=== PATIENT | female | born 1945 | race Caucasian/White ===

== ENCOUNTER 2019-06-22 06:00 | Outpatient (CLI) | payer MEDICARE, MEDICAID, SELFPAY ==
--- NOTE | 2019-06-25 06:06 | ONC FU_ITS ---
Dr. Larios Patient Follow-Up Note Patient: Shahnaz Harper Unit #: [id number]: 1945 Dicatated By: Juan Luis Larios M.D.Date of Visit:Jun 22, 2019 Onc Med Follow-up/Prog Note Chief Complaint: Mantle cell lymphoma. History of Present Illness: This is a 74 year-old woman with mantle cell lymphoma. She had bulky retroperitoneal adenopathy at initial presentation in May 2009. She was treated with R- hyperCVAD chemotherapy with good clinical response. She completed 6 cycles of treatment as of September 2009. She did experience severe myelosuppression with the high dose methotrexate/high-dose Kalie-C portion of the treatment, and with the 6th cycle I did replace it with an additional cycle of cyclophosphamide/vincristine/Adriamycin. A PET/CT at that point did show a residual 3 cm mass at the celiac access as well as 4 residual cystic masses within the spleen, but these all showed just low-grade FDG uptake. She was then followed on observation/expectant management. During her followup she continued to have a mild thrombocytopenia, but there was no evidence of recurrence/progression of the lymphoma. She was found to have multiple thyroid nodules. She underwent right thyroid lobectomy in August of 2010. Pathology showed multinodular hyperplasia, but no evidence of malignancy. She had a pretty severe episode of pneumonia in September 2012, and she had evidence of some underlying COPD. Her other medical illnesses have been limited to hypertension and degenerative arthritis. She also has stage III chronic kidney disease. She had several polyps removed by colonoscopy in June 2012. She had a repeat EGD and colonoscopy in January 2019. The only significant finding apparently was gastritis. She had smoked in the past, but she quit in 2008. She is seen for a scheduled visit. She has been feeling good generally. Her energy is somewhat variable, but mostly pretty good. She says she is trying to walk. Her ECOG score is 1. She has good appetite. She has gained weight. She has not had fever. She had one episode of night sweating in association with bronchitis. Her breathing is pretty good during the daytime. It has improved with Spiriva. She also uses a pulmonary nebulizer as needed. She has on oxygen during the night. She has just occasional cough. She does not complain of chest pain. She has ongoing problems with acid reflux, but it is managed pretty well as long she takes her medication. She has abdominal pain intermittently, depending on what she eats. It is presumably due to diverticulitis. Her bowel and bladder function have been okay. She has some aching in the joints. She has just occasional headache. She occasionally has numbness in her hands. Medications: Charity 180 mg - Take 1 Tablet Oral daily, AmLODIPine Besylate 1 (10 mg) Tablet Oral daily, Benefiber 2 tsp Powder Oral every am, Cholecalciferol 1 (1000 Units) Capsule Oral every am, [employer] Fish Oil 1 (1000 mg) Capsule Oral daily, Glucosamine Chondr 1500 Complx 1 Capsule Oral daily, HydrALAZINE HCl 1 (25 mg) Tablet Oral b.i.d., Losartan Potassium 1 (50 mg) Tablet Oral b.i.d., Metoprolol Succinate ER 1 (25 mg) Tablet SR 24 HR Oral every am, Nitroglycerin Tablet, sublingual Sublingual PRN, oxygen 1 (2 L) Aerosol at bedtime, Protonix 1 (40 mg) Tablet, enteric coated Oral daily, Spiriva Respimat 1 (1.25 mcg/act) Aerosol, solution Inhalation daily, Synthroid 1 (75 mcg) Tablet Oral daily, Xopenex Nebulization solution Inhalation PRN, Zantac 2 (150 mg) Tablet Oral at bedtime, Zocor 1 (10 mg) Tablet Oral daily Allergies: PENICILLIN Review of Systems: Constitutional - Her energy is variable, but usually pretty good. She has limited activity. Appetite is good. She has gained weight. No fever or night sweats. ECOG score is 1, ENMT - She has occasional sinus congestion. No mouth sores. No sore throat or difficulty swallowing, Hematologic/Lymphatic - No abnormal bruising or bleeding, Respiratory - She has shortness of breath. She is on oxygen at night. She has just occasional cough. No pleuritic pain or hemoptysis, Cardiovascular - No angina pain. No palpitations, Gastrointestinal - No nausea or vomiting. She has acid reflux. She has diverticulitis, and she has abdominal pain, depending on what she eats. No diarrhea or constipation. No blood in the stool or black stools, Genitourinary (F) - No dysuria or hematuria. No urinary frequency. No urgency or incontinence, Musculoskeletal - She has aching in her joints, and she has some lower back pain, Integumentary - No skin complications, Neurologic - She has occasional headache. She does not complain of dizziness. She has occasional numbness/paresthesias in her hands, Psychiatric - No anxiety or depression. No insomnia. Vital Signs: Performed on Jun 22, 2019 14:15 Height - 64.00 in Weight - 201 lbs (HIGH) BSA - 1.96 sq.m BMI - 34.50 (HIGH) Temperature - 97.8 F (LOW) Pulse - 51 /min (LOW) Respiration - 19 /min BP - 151/81 mm(hg) (HIGH) O2 Sat - 97 % Pain - 0 Physical Examination: Constitutional - She looks pretty good generally, Eyes - Sclerae nonicteric. Conjunctivae clear, ENMT - No lesions noted in the oral cavity, Hematologic/Lymphatic - No cervical, clavicular, or axillary adenopathy, Respiratory - Lungs are clear with diminished air movement bilaterally, Cardiovascular - Heart rhythm is regular. There is no murmur, gallop, or rub noted, Abdomen - Mildly distended but soft. Liver and spleen are not enlarged. There is no abdominal mass or ascites noted and there is no inguinal adenopathy, Extremities - No edema. Posterior tibial pulses are palpable bilaterally, Neurologic - No focal neurologic deficits. Lab/Imaging: Test performed on Jun 15, 2019 09:08 Glucose 113 mg/dL BUN 14 mg/dL Creatinine 1.29 mg/dL Cr Clearance (Est) 55.89 mL/min Sodium 138 mmol/L Potassium 4.7 mmol/L Chloride 102 mmol/L CO2 26 mmol/L Calcium 9.1 mg/dL Protein, Total 6.0 g/dL Albumin 4.1 g/dL Bilirubin, Total 0.7 mg/dL Alkaline Phosphatase 86 IU/L AST (SGOT) 19 IU/L ALT (SGPT) 13 IU/L WBC 4.5 10^9/L RBC 4.37 10^12/L HGB 12.6 g/dL HCT 39.6 % MCV 90.6 fl MCH 28.8 pg MCHC 31.8 g/dL RDW 15.4 % Platelet Count 97 10^9/L MPV 10.6 fL Neutrophils (Gran) 2.89 10^9/L Lymphocytes 1.03 10^9/L Monocytes 0.47 10^9/L Eosinophils 0.07 10^9/L Basophils 0.01 10^9/L Manual Lymphocytes 23 % Manual Monocytes 11 % Manual Eosinophils 2 % Manual Basophils 0 % Impression: 1. Patient with mantle cell lymphoma with bulky retroperitoneal adenopathy and involvement in the spleen at initial diagnosis in May 2009. She appears to be in sustained remission following treatment with 6 cycles of F-madof-HDYM chemotherapy, which she completed in September 2009. 2. She has had a mild to moderately severe thrombocytopenia following completion of the chemotherapy. The cause/clinical significance is uncertain. Her other medical illnesses include: 3. Hypertension. 4. Stage III chronic kidney disease. 5. COPD. 6. Degenerative arthritis. 7. Multinodular goiter. During followup she has had some ongoing problems related to her underlying COPD, and she also has had GERD symptoms. Overall, though, she has been doing well clinically with no evidence of recurrence/progression of the lymphoma. Plan: She remains on observation/expectant management. I will see her again in 1 year. Signed By: Juan Luis Larios M.D. <<Signature on File>>
== END 2019-06-22 06:01 | disposition home or self-care (01) ==
LOC: ONCMED 10:32
PROVIDERS: Family Provider Nurse Practitioner Family; PCP Physician Assistant Medical; Visit Provider Internal Medicine Medical Oncology
DX: Z85.72 Personal history of non-Hodgkin lymphomas (principal); Z92.21 Personal history of antineoplastic chemotherapy; D69.59 Other secondary thrombocytopenia; T45.1X5S Adverse effect of antineoplastic and immunosuppressive drugs, sequela; I12.9 Hypertensive chronic kidney disease with stage 1 through stage 4 chronic kidney disease, or unspecified chronic kidney disease; N18.3 Chronic kidney disease, stage 3 (moderate); J44.9 Chronic obstructive pulmonary disease, unspecified; M19.90 Unspecified osteoarthritis, unspecified site; E04.2 Nontoxic multinodular goiter; Z87.891 Personal history of nicotine dependence
CPT/HCPCS: G0463

== ENCOUNTER 2020-07-18 13:08 | Outpatient (CLI) | payer MEDICARE, MEDICAID, SELFPAY ==
--- NOTE | 2020-07-18 19:09 | ONC FU_ITS ---
Dr. Larios Patient Follow-Up Note Patient: Shahnaz Harper Unit #: [id number]: 1945 Dicatated By: Juan Luis Larios M.D.Date of Visit:Jul 18, 2020 Onc Med Follow-up/Prog Note Chief Complaint: Mantle cell lymphoma. History of Present Illness: This is a 75 year-old woman with mantle cell lymphoma. She had bulky retroperitoneal adenopathy at initial presentation in May 2009. She was treated with R- hyperCVAD chemotherapy with good clinical response. She completed 6 cycles of treatment as of September 2009. She did experience severe myelosuppression with the high dose methotrexate/high-dose Kalie-C portion of the treatment, and with the 6th cycle I did replace it with an additional cycle of cyclophosphamide/vincristine/Adriamycin. A PET/CT at that point did show a residual 3 cm mass at the celiac access as well as 4 residual cystic masses within the spleen, but these all showed just low-grade FDG uptake. She was then followed on observation/expectant management. During her followup she continued to have a mild thrombocytopenia, but there was no evidence of recurrence/progression of the lymphoma. She was found to have multiple thyroid nodules. She underwent right thyroid lobectomy in August of 2010. Pathology showed multinodular hyperplasia, but no evidence of malignancy. She had a pretty severe episode of pneumonia in September 2012, and she had evidence of some underlying COPD. Her other medical illnesses include hypertension, chronic kidney disease, GERD, obstructive sleep apnea, and degenerative arthritis. She had several polyps removed by colonoscopy in June 2012. She had a repeat EGD and colonoscopy in January 2019. The only significant finding apparently was gastritis. She had smoked in the past, but she quit in 2008. She is seen for a scheduled visit. She has been under quite a bit of stress, as her came down with pneumonia in May that he is now continuing his recovery and a prison. She has been getting tired more easily, but she is still doing light work. ECOG score is 1. She has good appetite. She has gained weight. She does not have fever or night sweats. She has been having quite a bit of cough, and she has shortness of breath. She is on CPAP for obstructive sleep apnea. She does not complain of chest pain. She always has acid reflux. Her bowel function is adequately managed with MiraLAX. Bladder function has been okay. She has her usual old-age arthritis. She does not complain of headache or dizziness. She sometimes has numbness/tingling in her hands. Medications: Charity 180 mg - Take 1 Tablet Oral daily, AmLODIPine Besylate 1 (10 mg) Tablet Oral daily, Benefiber 2 tsp Powder Oral every am, Cholecalciferol 1 (1000 Units) Capsule Oral every am, [employer] Fish Oil 1 (1000 mg) Capsule Oral daily, Glucosamine Chondr 1500 Complx 1 Capsule Oral daily, HydrALAZINE HCl 1 (50 mg) Tablet Oral b.i.d., Losartan Potassium 1 (50 mg) Tablet Oral b.i.d., Metoprolol Succinate ER 1 (50 mg) Tablet SR 24 HR Oral every am, Nitroglycerin Tablet, sublingual Sublingual PRN, oxygen 1 (2 L) Aerosol at bedtime, Protonix 1 (40 mg) Tablet, enteric coated Oral daily, Spiriva Respimat 1 (1.25 mcg/act) Aerosol, solution Inhalation daily, Synthroid 1 (75 mcg) Tablet Oral daily, Xopenex Nebulization solution Inhalation PRN, Zantac 2 (150 mg) Tablet Oral at bedtime, Zocor 1 (10 mg) Tablet Oral daily Allergies: PENICILLIN Vital Signs: Performed on Jul 18, 2020 12:38 Height - 64.00 in Weight - 209 lbs (HIGH) BSA - 1.99 sq.m BMI - 35.88 (HIGH) Temperature - 98.0 F (LOW) Pulse - 90 /min Respiration - 20 /min BP - 130/62 mm(hg) O2 Sat - 93 % (LOW) Pain - 0 Physical Examination: Constitutional - She looks pretty good generally, Eyes - Sclerae nonicteric. Conjunctivae clear, ENMT - No lesions noted in the oral cavity, Hematologic/Lymphatic - No cervical, clavicular, or axillary adenopathy, Respiratory - Lungs are clear with diminished air movement bilaterally, Cardiovascular - Heart rhythm is regular. There is no murmur, gallop, or rub noted, Abdomen - Mildly distended. Liver and spleen are not enlarged. There is no abdominal mass or ascites noted and there is no inguinal adenopathy, Extremities - No edema, Neurologic - No focal neurologic deficits. Lab/Imaging: Test performed on Jul 14, 2020 09:30 T4, Free 1.80 ng/dL TSH 1.25 uU/mL LDH, Total 236 IU/L Phosphorous 3.7 mg/dL WBC 4.3 10^9/L RBC 3.85 10^12/L HGB 10.8 g/dL HCT 35.4 % MCV 91.9 fl MCH 28.1 pg MCHC 30.5 g/dL RDW 17.2 % Platelet Count 129 10^9/L MPV 11.2 fL Neutrophils (Gran) 2.40 10^9/L Lymphocytes 1.32 10^9/L Monocytes 0.41 10^9/L Eosinophils 0.10 10^9/L Basophils 0.01 10^9/L Manual Lymphocytes 31 % Manual Monocytes 10 % Manual Eosinophils 2 % Manual Basophils 0 % Problem List: 1. Mantle cell lymphoma with bulky retroperitoneal adenopathy and involvement in the spleen at initial diagnosis in May 2009. She has been in sustained remission following treatment with 6 cycles of Y-juaka-BZKO chemotherapy, which she completed in September 2009. 2. She has had a mild to moderately severe thrombocytopenia following completion of the chemotherapy. The cause/clinical significance is uncertain. 3. Hypertension. 4. Stage III chronic kidney disease. 5. GERD. 6. COPD. 7. Obstructive sleep apnea. 8. Degenerative arthritis. 9. Multinodular goiter. Problems Addressed with this Encounter and Plan: Patient with mantle cell lymphoma with bulky retroperitoneal adenopathy and involvement in the spleen at initial diagnosis in May 2009. She has been in sustained remission following treatment with 6 cycles of T-afqyg-MVBR chemotherapy, which she completed in September 2009. During follow-up she has had persistent thrombocytopenia of mild to moderately severe severity. A specific cause has not been determined, but it has been stable, and there has been no evidence of recurrence of the lymphoma. At this point she is having a little more fatigue. Some of that may be stress related, but she has now become mildly anemic. She otherwise appears stable, still with no evidence of recurrence of the lymphoma. As a precaution, I am going to check additional laboratory studies in 1 month, to include CBC, comprehensive metabolic profile, sed rate, reticulocyte count, LDH level, haptoglobin level, serum iron studies, and B12 level. She will have further evaluation as indicated. I will otherwise just plan to see her again in 1 year. Signed By: Juan Luis Larios M.D. <<Signature on File>>
== END 2020-07-18 13:09 | disposition home or self-care (01) ==
LOC: ONCMED 13:09
PROVIDERS: Family Provider Nurse Practitioner Family; PCP Physician Assistant Medical; Visit Provider Internal Medicine Medical Oncology
DX: Z85.72 Personal history of non-Hodgkin lymphomas (principal); D64.9 Anemia, unspecified; R53.83 Other fatigue; Z92.21 Personal history of antineoplastic chemotherapy
CPT/HCPCS: 99214

== ENCOUNTER 2021-02-21 10:37 | Outpatient (CLI) | payer MEDICARE, MEDICAID, SELFPAY ==
--- NOTE | 2021-02-21 11:35 | XR_ITS ---
WS: [id number] PA and lateral chest, 02/21/2021 Clinical Data: MALIGNANT PLEURAL EFFUSION Comparison: PA and lateral chest, 10/01/2012 Findings: There is a patchy opacity in the retrocardiac region which may represent atelectasis, pneum onia and effusion. Right lung is clear. The heart size is normal. No pneumothorax is seen. The pulmon emily vascularity is not remarkable. The aortic arch shows mild calcification. XR/XR chest 2V* [id number] Impression: 1. Patchy retrocardiac opacity which may represent atelectasis, effusion and pn eumonia. 2. Recommend follow-up film in 1-2 days.
== END 2021-02-21 10:38 | disposition home or self-care (01) ==
PROVIDERS: PCP Physician Assistant Medical; Visit Provider Internal Medicine Medical Oncology
DX: J91.0 Malignant pleural effusion (principal); J98.11 Atelectasis; J18.9 Pneumonia, unspecified organism
CPT/HCPCS: 36415; 71046

== ENCOUNTER 2021-03-05 08:55 | Outpatient (CLI) | payer MEDICARE, MEDICAID, SELFPAY ==
--- NOTE | 2021-03-06 07:25 | ONC CON_ITS ---
Dr. Larios New Patient Note Patient: Shahnaz Harper Unit #: [id number]: 1945 Dicatated By: Juan Luis Larios M.D.Date of Visit: Mar 05, 2021 Onc MED New Patient/Consult Referring Physician: Dr. Yanely Shabazz M.D. Chief Complaint: Mantle cell lymphoma/llung cancer. History of Present Illness: This is a 76 year-old woman with a history of mantle cell lymphoma. She has now been found to have metastatic neuroendocrine lung cancer. She has COPD. She had presented in January with left lower back pain and she was found on CT to have a left pleural effusion. She was then seen at the [facility] pulmonary clinic and she underwent thoracentesis on 01/29/2021. The pleural fluid cytology showed malignant cells which were positive for CK7, TTF-1, and MOC-31. They were negative for cyclin D1, CK20, Jorge Luis-EP4, calretinin, CD20, and CD3. On further analysis, there was positive staining for synaptophysin with negative p40 and Napsin, supporting a neuroendocrine carcinoma. Based on morphology, it large cell neuroendocrine carcinoma was favored. She then had further staging with PET/CT on 02/24/2021. That study showed an FDG avid solid lesion in the medial left lower lobe measuring 3.4 x 3.2 cm, SUV 12.4, strongly consistent with malignancy. Multiple FDG positive left hemithorax pleural plaques are also consistent with malignancy. Malignant nodes were present in the left hilum and prevascular territories. There was evidence of metastatic disease in the right and left hepatic lobes and there was malignant adenopathy in the retrocaval and peripancreatic regions. Also noted were multiple sites of osseous metastatic disease. She was referred to Dr. Santillan for consideration of chest tube placement in the left pleural cavity, but he recommended against it because the effusion appeared to be loculated. In the meantime, she had further evaluation with next generation sequencing study. 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 Multiple other mutations were noted, none of which were actionable. She is seen now for further management of the lung cancer. She complains that she is tired and hurting. She continues to have significant pain on her left side and left lower back. She does get some benefit with her pain medication, but she complains that it makes her sleepy. She does not have much activity, but she is still able to do housework. ECOG score is 1. Appetite is poor. She complains that nothing tastes good. She has not had fever. She occasionally has sweating at night. She has not had sore mouth or throat, and she has no difficulty swallowing. She continues to have shortness of breath, but not much cough. She does not complain of nausea. She always has acid reflux, but it is managed adequately with medication. She has been having constipation, but bowel function thus far has been adequate with MiraLAX. She has no complaints. She currently is not having any other joint or bone pain. She does not complain of headache. She occasionally has dizziness. She has some numbness in her fingers, but that is chronic. She has no other focal neurologic symptoms. She had bulky retroperitoneal adenopathy at the initial presentation of her lymphoma in May 2009. She was treated with R- hyperCVAD chemotherapy with good clinical response. She completed 6 cycles of treatment as of September 2009. She did experience severe myelosuppression with the high dose methotrexate/high-dose Kalie-C portion of the treatment, and with the 6th cycle I did replace it with an additional cycle of cyclophosphamide/vincristine/Adriamycin. A PET/CT at that point did show a residual 3 cm mass at the celiac access as well as 4 residual cystic masses within the spleen, but these all showed just low-grade FDG uptake. She was then followed on observation/expectant management. During her followup she continued to have a mild thrombocytopenia, but there was no evidence of recurrence/progression of the lymphoma. Her other medical illnesses include COPD, hypertension, chronic kidney disease, GERD, multinodular goiter, obstructive sleep apnea, and degenerative arthritis. She has a history of pulmonary embolism. She underwent right hemithyroidectomy in 2010. She had several polyps removed by colonoscopy in June 2012. She had a pretty severe episode of pneumonia in September 2012. She had a repeat EGD and colonoscopy in January 2019. The only significant finding apparently was gastritis. She had smoked in the past, but she quit in 2008. Medications: Charity 180 mg - Take 1 Tablet Oral daily, AmLODIPine Besylate 1 (10 mg) Tablet Oral daily, Benefiber 2 tsp Powder Oral every am, Cholecalciferol 1 (1000 Units) Capsule Oral every am, Famotidine 1 Tablet (of 40 mg) Oral daily, Glucosamine Chondr 1500 Complx 1 Capsule Oral daily, HydrALAZINE HCl 1 (50 mg) Tablet Oral b.i.d., Losartan Potassium 1 (50 mg) Tablet Oral b.i.d., Metoprolol Succinate ER 1 (50 mg) Tablet SR 24 HR Oral every am, Nitroglycerin Tablet, sublingual Sublingual PRN, oxygen 1 (2 L) Aerosol at bedtime, Polyethylene Glycol 1 Packet Powder daily, Protonix 1 (40 mg) Tablet, enteric coated Oral daily, Spiriva Respimat 1 (1.25 mcg/act) Aerosol, solution Inhalation daily, Synthroid 1 (75 mcg) Tablet Oral daily, Xopenex Nebulization solution Inhalation PRN, Zocor 1 (10 mg) Tablet Oral daily Allergies: PENICILLIN Social History: Ms. Harper is and she is retired. Ms. Harper no longer smokes. She drinks occasionally. She has indicated exposure to the following products: cigarettes. She has a history of smoking 1/2 pack of cigarettes daily for 40 years. She quit smoking in 2008. She has had only rare alcohol use. Family History: His sister of renal cell cancer at age 52. Her mother had diabetes and renal failure. She of stroke at age 72. Father with heart attack at age 80. Another sister and a brother also have diabetes. Review Of Symptoms: As above. Vital Signs: Performed on Mar 05, 2021 09:33: 8, 4, 34.90 (HIGH), 1.97 sq.m, 64.00 in, 94 % (LOW), 80 /min, 20 /min, 165/70 mm(hg) (HIGH), 97.9 F (LOW), and 203.3 lbs (LOW). Physical Examination: Constitutional - She appears somewhat weak generally, Eyes - Sclerae nonicteric. Conjunctivae clear, ENMT - No lesions noted in the oral cavity, Hematologic/Lymphatic - No cervical, clavicular, or axillary adenopathy, Respiratory - Lungs show diminished air movement bilaterally, worse on the left, Cardiovascular - Heart rhythm is regular. There is no murmur, gallop, or rub noted, Abdomen - Mildly distended. Liver and spleen are not enlarged. There is no abdominal mass or ascites noted and there is no inguinal adenopathy, Extremities - No edema, Neurologic - No focal neurologic deficits. Problem List: 1. Metastatic neuroendocrine lung cancer with PET/CT evidence of primary tumor in the medial left lower lobe, TNM stage IVB (T2a, N2, M1c). There is associated malignant pleural effusion and there are multiple sites of metastatic involvement by PET/CT, including multiple hepatic metastases and multiple sites of metastatic bone involvement. 2. She has a history of mantle cell lymphoma with bulky retroperitoneal adenopathy and involvement in the spleen at initial diagnosis in May 2009. She has been in sustained remission following treatment with 6 cycles of J-rmwye-DMUL chemotherapy, which she completed in September 2009. 3. She has had a mild to moderately severe thrombocytopenia following completion of the chemotherapy. 4. Hypertension. 5. Stage III chronic kidney disease. 6. GERD. 7. COPD. 8. Obstructive sleep apnea. 9. Degenerative arthritis. 10. Multinodular goiter. 11. History of pulmonary embolism. Problems Addressed with this Encounter and Plan: 1. The PET/CT findings and the pathology results reviewed with the patient. I also reviewed the results of the next generation sequencing by liquid biopsy. We discussed the clinic complications. She has metastatic neuroendocrine lung cancer, felt to be most likely large cell, that cannot be determined with certainty. PD-L1 assessment on the biopsy was not able to be performed due to inadequate specimen. Based on the information available, I am going to recommend trial of systemic therapy with carboplatin/etoposide chemotherapy in combination with immunotherapy (atezolizumab). I reviewed anticipated side effects with the chemotherapy which may include nausea/vomiting, alopecia, fatigue, and low blood counts, among others. I also reviewed potential side effects with the immunotherapy which may include endocrinopathies, enteritis, pneumonitis, skin eruption, and renal or hepatic toxicity, among others. She is agreeable to proceeding with treatment as recommended. She will need to undergo placement of Port-A-Cath venous access device, will be scheduled with Dr. Francisco. She will return for cycle 1 of chemotherapy soon as the Port-A-Cath is in place and we have verification of insurance coverage. 2. She has multiple sites of metastatic bone involvement by PET/CT, and she also will require supportive therapy with denosumab. Signed By: Juan Luis Larios M.D. <<Signature on File>>
== END 2021-03-05 08:56 | disposition home or self-care (01) ==
LOC: ONCMED 08:58
PROVIDERS: PCP Physician Assistant Medical; Visit Provider Internal Medicine Medical Oncology
DX: C7B.8 Other secondary neuroendocrine tumors (principal); C79.51 Secondary malignant neoplasm of bone; Z85.72 Personal history of non-Hodgkin lymphomas; J44.9 Chronic obstructive pulmonary disease, unspecified; I12.9 Hypertensive chronic kidney disease with stage 1 through stage 4 chronic kidney disease, or unspecified chronic kidney disease; N18.9 Chronic kidney disease, unspecified; K21.9 Gastro-esophageal reflux disease without esophagitis; Z87.891 Personal history of nicotine dependence; Z79.899 Other long term (current) drug therapy; Z80.9 Family history of malignant neoplasm, unspecified
CPT/HCPCS: 99215

== ENCOUNTER → 2021-03-07 13:57 | Outpatient (BNVA) | payer MEDICARE, MEDICAID, SELFPAY | PROVIDERS: PCP Physician Assistant Medical; Visit Provider Surgery | DX: Z20.822 Contact with and (suspected) exposure to COVID-19 (principal); Z11.52 Encounter for screening for COVID-19 | CPT/HCPCS: 87635 ==

== ENCOUNTER 2021-03-14 06:55 | Day surgery (SDC) | payer MEDICARE, MEDICAID, SELFPAY ==
[2021-03-13 16:23] VITALS: BMI 34.7
--- NOTE | 2021-03-14 | SCC_ITS ---
Procedure Done: 1. Placement of PowerPort in the right internal jugular vein 69.5 seconds of fluoroscopic guidance, for a cumulative dose of 16.60 mGy, was provided to Dr. Francisco by the radiology department. C-arm images of the chest were saved for the patient's permanent record. [facility]
--- NOTE | 2021-03-14 07:07 | W.PM.OPSUD ---
Surgery/Procedure H&P Update DATE OF PROCEDURE: March 14, 2021 DATE H&P PERFORMED: 03/06/21 H&P UPDATE INFORMATION: I have reviewed H&P completed within last 30 days, I have examined patient prior to procedure and No changes to prior documentation PREOP DIAGNOSIS: lung ca PLANNED PROCEDURE: Operation Date: 03/14/21 08:10 Proposed Procedures p Portacath Placement [id number] D3A.8(Not Applicable) - Beau Francisco MD
[2021-03-14 07:13] VITALS: BP 142/68; PULSE 76; RESP 18; TEMP 36.3; O2SAT 94
[2021-03-14] MEDS: sodium chloride 0.9% 1,000 ML 30 ML IV (07:51)
--- NOTE | 2021-03-14 07:54 | SC_ITS ---
WS: [id number] C-arm fluoroscopy for Port-A-Cath insertion, 03/14/2021 Clinical Data: portacatheter Comparison: None. Findings: The right internal jugular venous catheter is in good position. SC/C-arm FL for CVA [id number] Impression: Insertion of right internal jugular venous catheter.
--- NOTE | 2021-03-14 07:59 | ANES.PREANE2 ---
Pre-Anesthetic Assessment Pre-Anesthetic Assessment: Height/Weight: Height 1.63 m Weight 91.626 kg Temp Pulse Resp BP Pulse Ox 97.4 F L 76 18 142/68 94 03/14/21 07:13 03/14/21 07:13 03/14/21 07:13 03/14/21 07:13 03/14/21 07:13 Preop Diagnosis: lung ca Proposed Procedure: Operation Date: 03/14/21 08:10 Proposed Procedures p Portacath Placement [id number] D3A.8(Not Applicable) - Beau Francisco MD Was Beta Maye taken within 24 hours: Yes Was Clonidine taken within 24 hours: N/A Last intake: Intake Last Liquid Date 03/13/21 Last Liquid Time 22:00 Last Solid Date 03/13/21 Last Solid Time 17:30 Social: Social History: No tobacco Exam: Pre-Anes Outpt Exam: alert, oriented x 3 and regular rate & rhythm Additional Exam Findings (including area of procedure): Mild expiratory wheeze. Airway: Submandibular: WNL Cervical ROM: WNL MP: 2 Dentition: Chipped Pulmonary: Pulmonary: COPD, Cough and Sleep apnea Comments: Lung CA. Supplemental O2 @ 2 Lpm during the day. CPAP at night. CV/HEM: CV/HEM: HTN Metabolic: Metabolic: Morbid obesity and Thyroid Comments: BMI 34 Anesthetic Plan: ASA status: 3 Anesthesia: Anesthesia Evaluation, General and MAC Risk of > 500 ml blood loss (7ml/kg in children): No Meds/Allergies Current Medications: Current Medications Generic Name Dose Route Start Last Admin Trade Name Freq PRN Reason Stop Dose Admin Sodium Chloride 1,000 mls @ 30 ml s/hr 03/14/21 07:15 03/14/21 07:51 Sodium Chloride 0.9% IV 03/15/21 07:14 30 mls/hr .Q24H FISH Administration PFSH Anesthesia PFSH: Medical History (Updated 03/06/21 @ 09:01 by Beau Francisco MD) GERD (gastroesophageal reflux disease) Hypertension Hypothyroidism 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
--- NOTE | 2021-03-14 07:59 | ANES.PREANE2 ---
Pre-Anesthetic Assessment Pre-Anesthetic Assessment: Height/Weight: Height 1.63 m Weight 91.626 kg Temp Pulse Resp BP Pulse Ox 97.4 F L 76 18 142/68 94 03/14/21 07:13 03/14/21 07:13 03/14/21 07:13 03/14/21 07:13 03/14/21 07:13 Preop Diagnosis: lung ca Proposed Procedure: Operation Date: 03/14/21 08:10 Proposed Procedures p Portacath Placement [id number] D3A.8(Not Applicable) - Beau Francisco MD Familial anesthetic complications: none Was Beta Maye taken within 24 hours: Yes Was Clonidine taken within 24 hours: N/A Last intake: Intake Last Liquid Date 03/13/21 Last Liquid Time 22:00 Last Solid Date 03/13/21 Last Solid Time 17:30 Social: Social History: No alcohol and No tobacco Exam: Pre-Anes Outpt Exam: alert, oriented x 3, clear to auscultation bilaterally and regular rate & rhythm Additional Exam Findings (including area of procedure): coarse breath sounds b/l Airway: Cervical ROM: WNL MP: 2 Dentition: Other (misisng teeth) Pulmonary: Pulmonary: COPD (2 l NC) CV/HEM: CV/HEM: HTN GI: GI: GERD Metabolic: Metabolic: Hyperlipidemia and Thyroid Anesthetic Plan: ASA status: 4 Anesthesia: MAC Risk of > 500 ml blood loss (7ml/kg in children): No Meds/Allergies Current Medications: Current Medications Generic Name Dose Route Start Last Admin Trade Name Freq PRN Reason Stop Dose Admin Sodium Chloride 1,000 mls @ 30 ml s/hr 03/14/21 07:15 03/14/21 07:51 Sodium Chloride 0.9% IV 03/15/21 07:14 30 mls/hr .Q24H FISH Administration PFSH Anesthesia PFSH: Medical History (Updated 03/06/21 @ 09:01 by Beau Francisco MD) GERD (gastroesophageal reflux disease) Hypertension Hypothyroidism 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
[2021-03-14] MEDS: vancomycin 1,000 MG in sodium chloride 0.9% 250 ML 250 MG IV (08:15)
[2021-03-14] MEDS: lidocaine 1% INJ 20 mL SUBCUT (08:50)
--- NOTE | 2021-03-14 09:12 | XR_ITS ---
WS: [id number] Portable AP upright chest, 03/14/2021 Clinical Data: STATUS POST PORTACATHETER (IN PACU) Comparison: PA and lateral chest, 02/21/2021. Findings: The right internal jugular venous placement of Port-A-Cath is good. No pneumothorax is note d. The heart remains enlarged. There is patchy opacity in the left lower lobe which may represent ate lectasis, effusion and or pneumonia. Right lung is clear. The pulmonary vascularity is not increased. . XR/XR chest 1V portable [id number] Impression: 1. Satisfactory placement of right internal jugular venous Port-A-Cath. 2. No change in cardiomegaly. 3. No change in patchy opacity in left lower lobe.
[2021-03-14 09:32] VITALS: BP 128/62; PULSE 73; RESP 10; TEMP 36.3; O2SAT 97
[2021-03-14 09:40] VITALS: BP 131/65; PULSE 68; RESP 18; TEMP 36.6; O2SAT 97
[2021-03-14 09:45] VITALS: BP 129/77; PULSE 66; RESP 16; TEMP 36.6; O2SAT 95
--- NOTE | 2021-03-14 09:55 | PM.OP ---
Operative Report Date of procedure: March 14, 2021 Pre-op Diagnosis: Neuroendocrine tumor of the lung requiring central venous access for chemo Post-op diagnosis: same Procedure Done: 1. Placement of PowerPort in the right internal jugular vein 2. Fluoroscopic guidance and interpretation for placement of catheter 3. Ultrasound guidance to access the right internal jugular vein Surgeon: Beau Francisco Anesthesia: MAC Condition: stable Disposition: PACU Procedure: The patient was taken to the Operating Room and the chest and neck bilaterally were prepped and draped in a sterile manner after the antibiotic had been administered and shoulder rolls had been placed. 1% lidocaine with 0.5% Marcaine was infiltrated at the side at the site of the planned around the left subclavian vein. I was able to access the left subclavian vein but could not thread the guidewire. An ultrasound of the right internal jugular vein revealed patent flow, no thrombus. An introducer needle was then used to access the right internal jugular vein and after withdrawing blood syringe was removed and a guidewire passed under fluoroscopy into the superior vena cava. The site of the planned port was then marked on the chest and a 15 blade was used to make a 3 cm skin incision this was extended into the subcutaneous tissue using electrocautery and a subcutaneous pocket over the pectoralis fascia was created 2-0 Vicryl suture was used to suture the port to the pectoral fascia in the pocket on 3 sides. The catheter, after having been flushed with hep saline, was attached to the tunneler and a tunnel created between the port site and the internal jugular vein entry site. Under fluoroscopy the dilator sheath was passed over the guidewire into the proximal superior vena cava. The inner dilator was removed and the sheath left behind and the catheter was introduced through the peel-away sheath with the tip in the superior vena cava. The peel-away sheath was removed. The proximal end of the catheter was cut to the right size and was attached to the port. Using a Hawthorne needle the port was accessed, it withdrew blood easily and flushed easily. A final 5cc of heparin was used to flush the PowerPort. The subcutaneous tissue was approximated using interrupted 3-0 Vicryl sutures and the skin at the introducer site and the port site was closed using subcuticular running 4-0 Monocryl sutures. Surgical glue was applied and the patient was stable throughout the procedure. Fluoroscopic guidance and interpretation was performed for introduction of the guidewire in the right internal jugular vein, passage of dilator and placement of catheter tip in the distal superior vena cava
[2021-03-14 10:00] VITALS: BP 143/64; PULSE 67; RESP 16; TEMP 36.5; O2SAT 94
--- NOTE | 2021-03-14 15:43 | ANE.PACU2 ---
Inpatient post-anesthesia follow up: Airway intact: Yes Vital signs: Temperature 97.7 F Pulse Rate 67 Respiratory Rate 16 Blood Pressure 143/64 Pulse Oximetry 94 Oxygen Delivery Me thod Nasal Cannula Oxygen Flow Rate 2 Fraction of Inspir ed Oxygen Hydration adequate: Yes Nausea and vomiting: No Pain level: 2 Mental status: Baseline
== END 2021-03-14 10:39 | disposition home or self-care (01) ==
PROVIDERS: PCP Physician Assistant Medical; Visit Provider Surgery
PROC: (CPT 36571; principal; 2021-03-14 08:10)
DX: D3A.8 Other benign neuroendocrine tumors (principal); I10 Essential (primary) hypertension; E03.9 Hypothyroidism, unspecified; Z87.891 Personal history of nicotine dependence; Z88.0 Allergy status to penicillin
CPT/HCPCS: 36571; 71045; 77001; C1788; J2250; J2704; J3010; J3370; J3490; J7030; J7050

== ENCOUNTER 2021-03-19 10:22 | Outpatient (CLI) | payer MEDICARE, MEDICAID, SELFPAY ==
[2021-03-19 11:22] LABS: Basophils % 0.2 %; Hematocrit 32.1 % (37.0-47.0); Hemoglobin 10.1 g/dL (11.5-15.3); Lymphocytes # 1.1 10^3/uL (0.8-4.8); Lymphocytes % 12.7 %; Mean Corpuscular HGB Conc 31.5 g/dL (30.0-36.0); Mean Corpuscular Hemoglobin 28.5 pg (28.0-34.0); Mean Corpuscular Volume 90.4 fl (81-99); Mean Platelet Volume 11.9 fL (7.4-10.4); Monocytes % 11.3 %; Neutrophils # 6.55 10^3/uL (1.8-7.7); Neutrophils % 73.3 %; Nucleated Red Blood Cells % 0 %; Platelet Count 198 10^3/cmm (130-400); Red Blood Count 3.55 10^6/uL (4.1-5.3); Red Cell Distribution Width 15.6 % (12.1-15.1); White Blood Count 8.9 10^3/uL (4.0-10.0)
[2021-03-19] MEDS: sodium chloride 0.9% 250 ML 999 ML IV (11:28)
[2021-03-19] MEDS: levofloxacin-dextrose 5 % 500 MG/100 ML PREMIX 100 MG IV (11:28)
[2021-03-19 11:53] LABS: Alanine Aminotransferase 28 U/L (0-33); Albumin Level 3.3 g/dL (3.5-5.2); Alkaline Phosphatase 134 IU/L (35-105); Anion Gap 14.9 (5-19); Aspartate Amino Transferase 53 U/L (0-32); Blood Urea Nitrogen 22 mg/dL (8-23); Calcium 8.5 mg/dL (8.5-10.5); Carbon Dioxide 26 mmol/L (22-29); Chloride 101 mmol/L (98-107); Glucose 115 mg/dL (65-115); Osmolality Calculated 288 mOsm/kg (285-295); Potassium 4.9 mmol/L (3.5-5.1); Sodium 137 mmol/L (136-145); Thyroid Stimulating Hormone 0.63 uIU/mL (0.27-4.20); Total Bilirubin 0.5 mg/dL (0.15-1.2); Total Protein 6.3 g/dL (6.6-8.7)
== END 2021-03-19 10:23 | disposition home or self-care (01) ==
LOC: ONCMED 10:25
PROVIDERS: PCP Physician Assistant Medical; Visit Provider Internal Medicine Medical Oncology
DX: J91.0 Malignant pleural effusion (principal); F17.211 Nicotine dependence, cigarettes, in remission; D64.9 Anemia, unspecified; Z85.72 Personal history of non-Hodgkin lymphomas; E04.2 Nontoxic multinodular goiter; I10 Essential (primary) hypertension; M15.0 Primary generalized (osteo)arthritis
CPT/HCPCS: 80053; 84443; 85025; 96365; J1956; J7050

== ENCOUNTER 2021-03-19 12:39 | Inpatient (IN) | payer MEDICARE, MEDICAID, SELFPAY ==
[2021-03-19] VITALS (11 sets, daily range): BP systolic 110–146; BP diastolic 64–84; PULSE 68–109; RESP 18–28; TEMP 36.6–36.8; O2SAT 80–98; BMI 34.7; BMI 35.6
[2021-03-19 13:28] LABS: ABG PCO2 40.3 mmHg (35-45); ABG PH Result 7.44 (7.35-7.45); Arterial Blood Gas Hematocrit 31.7 % (37-47); Base Excess ABG 3.1 mmol/L (-2.0-2.0); Blood Gas Operator Identificat GD; Blood Gas Sample Site Brachial, right; Blood Gas Sample Type Arterial; HCO3 ABG 27.5 mmol/L (22-26); Oxygen Device NC; PO2 ABG 62.3 mmHg (80.0-100.0)
--- NOTE | 2021-03-19 13:41 | ECG_ITS ---
[facility] Test Date: 2021-03-19 Pat Name: Shahnaz Harper Department: Room: Gender: Female [place]: : 1945 Requested By: Philip Rojas Order Number: [id number] Ez MD: Olivia Calderon M.D. Measurements Intervals [place] Rate: 74 P: 50 NM: 143 QRS: 40 QRSD: 90 T: 54 QT: 390 QTc: 434 Interpretive Statements SINUS RHYTHM LOW QRS VOLTAGE IN PRECORDIAL LEADS [QRS DEFLECTION < 1.0 mV IN CHEST LEADS] No previous ECG available for comparison Electronically Signed On 03-20-2021 12:39:00 FISH AND WILDLIFE TECHNICIAN by Olivia Calderon M.D. [id number]
--- NOTE | 2021-03-19 13:48 | PC.NURSE ---
Cardiac monitoring initiated upon arrival into the room
--- NOTE | 2021-03-19 14:07 | W.ED.SOB ---
HPI - SOB/Dyspnea General: Chief Complaint: Shortness of Breath/Dyspnea Stated Complaint: Low o2 sent by Dr. Larios Time Seen by Provider: 03/19/21 13:40 History of Present Illness: HPI Narrative: 76-year-old female presents emergency room from oncology office. She is known history of lung cancer with metastasis diagnosed at stage IV. 10 years ago she had mantle cell lymphoma. Today she presents with increasing shortness of breath change in baseline cough is productive of green sputum. She normally is on 2 L by nasal cannula and is now escalated to 5 L by nasal cannula she denies any chest pain no fever. He has been vaccinated for Covid. MD elicited complaint: shortness of breath and cough Pertinent past history: other (lung CA) Onset (ago): day(s) Context: occurred during exertion Timing: constant Severity: moderate Exacerbating factors: exertion and coughing Relieving factors: oxygen and rest Known history of: COPD and other (lung CA) Associated symptoms: Deny abdominal pain, chest pain, fever(s), nausea, orthopnea or vomiting Treatment prior to arrival: oxygen Review of Systems Const: Denies: fever(s), chills, body aches, change in appetite, fatigue or malaise ENMT: Denies: throat pain, ear or mastoid pain, nasal discharge or nasal congestion Card: Denies: chest pain, edema, dyspnea on exertion or orthopnea Resp: Denies: dyspnea, productive cough or non-productive cough GI: Denies: abdominal pain, nausea, vomiting, hematemesis, coffee ground emesis, diarrhea, constipation, bloating, hematochezia or melena : Denies: flank pain, difficulty voiding, dysuria, urinary frequency or urinary urgency Skin/Breast: Denies: rash or pruritus PFSH ED PFSH: Medical History GERD (gastroesophageal reflux disease) Hypertension Hypothyroidism Mantle cell lymphoma Neuroendocrine neoplasm of lung Surgical History History of 1988 History of cholecystectomy unsure of date History of colonoscopy 2018 History of removal of Port-a-Cath 2016 History of thyroidectomy 2011 Port-A-Cath in place (03/14/21) Social History Quit status (tobacco): has quit using tobacco Former quit date comment: 12 years prior Alcohol intake: never Physical Exam Const: COMMON NORMALS: no acute distress GENERAL APPEARANCE: cooperative and comfortable ORIENTATION/CONSCIOUSNESS: Yes awake, Yes oriented to person, Yes oriented to place and Yes oriented to time HENMT: COMMON NORMALS: normocephalic, atraumatic and hearing grossly normal bilaterally HEAD & SCALP: normocephalic and atraumatic Neck/C-Spine: COMMON NORMALS: no JVD Resp: AUSCULTATION: rhonchi and wheezes Cardio: COMMON NORMALS: no JVD, regular rate, regular rhythm and No murmurs present (Cardio) RATE: regular rate RHYTHM: regular rhythm GI: COMMON NORMALS: Soft to palpation and No hepatosplenomegaly present AUSCULTATION: Yes normoactive bowel sounds PALPATION: Yes Soft to palpation, No Tenderness to palpation present (GI), No Guarding due to palpation present (GI) and Yes No hepatosplenomegaly present Extremity: COMMON NORMALS: normal to inspection, capillary refill normal, no clubbing, cyanosis or edema, no calf tenderness and no pedal edema Neuro: SENSORIUM/ORIENTATION: Yes oriented to person, Yes oriented to place and Yes oriented to time Skin: COMMON NORMALS: no rashes or lesions noted GENERAL SKIN EXAM: no rashes or lesions noted Course Vital Signs: Vital signs: Vital Signs Temperature 98.2 F 03/22/21 04:00 Pulse Rate 74 03/22/21 04:00 Respiratory Rate 16 03/22/21 04:00 Blood Pressure 134/60 03/22/21 04:00 Pulse Oximetry 90 03/22/21 04:00 MDM - SOB/Dyspnea MDM Narrative: Medical decision making narrative: Reviewed labs and imaging with patient patient has a post obstructive pneumonia. Started on antibiotics cussed with hospitalist orders written Lab Data: Labs: Lab Results 03/19/21 03/19/21 03/19/21 13:05 14:16 14:16 WBC 8.1 10^3/uL 10^3/ uL (4.0-10.0) RBC 3.84 10^6/uL L 10 ^6/uL (4.1-5.3) Hgb 10.3 g/dL L g/dL (11.5-15.3) Hct 34.0 % L % (37.0-47.0) MCV 88.5 fl fl (81-99) MCH 26.8 pg L pg (28.0-34.0) MCHC 30.3 g/dL g/dL (30.0-36.0) RDW 15.7 % H % (12.1-15.1) Plt Count 191 10^3/cmm 10^3 /cmm (130-400) MPV 11.1 fL H fL (7.4-10.4) Neut % (Auto) 70.6 % % Lymph % (Auto) 15.3 % % [place] % (Auto) 10.9 % % Eos % (Auto) 0.0 % % Baso % (Auto) 0.2 % % Neut # (Auto) 5.72 10^3/uL 10^3 /uL (1.8-7.7) Lymph # (Auto) 1.2 10^3/uL 10^3/ uL (0.8-4.8) [place] # (Auto) 0.9 10^3/uL 10^3/ uL (0.2-0.9) Eos # (Auto) 0.0 10^3/uL 10^3/ uL (0.0-0.8) Baso # (Auto) 0.0 10^3/uL 10^3/ uL (0.0-0.1) Nucleated RBC % (a uto) 0 % % Nucleated RBCs # 0.0 /100WBC /100W BC Specimen Type Arterial Sample Site Brachial, right ABG pH 7.44 (7.35-7.45) ABG pCO2 40.3 mmHg mmHg (35-45) ABG pO2 62.3 mmHg L mmHg (80.0-100.0) ABG HCO3 27.5 mmol/L H mmo l/L (22-26) ABG Base Excess 3.1 mmol/L H mmol /L (-2.0-2.0) Vel Test N/a Hematocrit 31.7 % L % (37-47) O2 Delivery Device Nc O2 Liters/Min 2.0 % % FiO2 28.0 % % Senior Online Marketing Manager ID Gd Sodium 136 mmol/L mmol/L (136-145) Potassium 5.0 mmol/L mmol/L (3.5-5.1) Chloride 100 mmol/L mmol/L (98-107) Carbon Dioxide 22 mmol/L mmol/L (22-29) Anion Gap 19.0 (5-19) BUN 23 mg/dL mg/dL (8-23) Creatinine 1.2 mg/dL H mg/dL (0.5-0.9) GFR Calculation Not Reportable Glucose 101 mg/dL mg/dL (65-115) Calculated Osmolal ity 286 mOsm/kg mOsm/ kg (285-295) Calcium 8.2 mg/dL L mg/dL (8.5-10.5) Total Bilirubin 0.4 mg/dL mg/dL (0.15-1.2) AST 54 U/L H U/L (0-32) ALT 27 U/L U/L (0-33) Alkaline Phosphata se 124 IU/L H IU/L (35-105) Total Protein 6.5 g/dL L g/dL (6.6-8.7) Albumin 3.3 g/dL L g/dL (3.5-5.2) Globulin 3.2 g/dL g/dL (1.3-4.6) Discharge Plan Discharge Patient Disposition: Admitted As Inpatient Admit Provider: Naveed Camarillo Clinical Impression: Pneumonia, Lung cancer metastatic to bone Condition: Stable Coding Level of Care Code ED Patient Support Representative for Mary Ann Ronquillo
[2021-03-19 14:26] LABS: Basophils % 0.2 %; Hemoglobin 10.3 g/dL (11.5-15.3); Lymphocytes # 1.2 10^3/uL (0.8-4.8); Lymphocytes % 15.3 %; Mean Corpuscular HGB Conc 30.3 g/dL (30.0-36.0); Mean Corpuscular Hemoglobin 26.8 pg (28.0-34.0); Mean Corpuscular Volume 88.5 fl (81-99); Mean Platelet Volume 11.1 fL (7.4-10.4); Monocytes # 0.9 10^3/uL (0.2-0.9); Monocytes % 10.9 %; Neutrophils # 5.72 10^3/uL (1.8-7.7); Neutrophils % 70.6 %; Nucleated Red Blood Cells % 0 %; Platelet Count 191 10^3/cmm (130-400); Red Blood Count 3.84 10^6/uL (4.1-5.3); Red Cell Distribution Width 15.7 % (12.1-15.1); White Blood Count 8.1 10^3/uL (4.0-10.0)
--- NOTE | 2021-03-19 14:36 | XR_ITS ---
WS: [id number] Exam: XR chest 1V portable [id number] Date/Time of Exam: 03/19/2021 2:36 PM Reason For Exam: dyspnea/cough Comparison 02/21/2021. Residual infiltrates are seen in the bilateral lower lobes. There is atelectasis and residual consoli dating infiltrate in the left lower lobe. The heart is enlarged. No pneumothorax is seen. Left basal pleural effusion is noted. A right IJ port is noted ending in the lower one third of the SVC. Regiona l bony elements are intact. XR/XR chest 1V portable [id number] IMPRESSION: 1. Residual infiltrates in the mid and lower lung zones with consolidation in t he left lower lobe and atelectasis. Small left pleural effusion. 2. Cardiac enlargement. 3. Right-sided IJ port in satisfactory location.
[2021-03-19 14:49] LABS: Alanine Aminotransferase 27 U/L (0-33); Albumin Level 3.3 g/dL (3.5-5.2); Alkaline Phosphatase 124 IU/L (35-105); Aspartate Amino Transferase 54 U/L (0-32); Blood Urea Nitrogen 23 mg/dL (8-23); Calcium 8.2 mg/dL (8.5-10.5); Carbon Dioxide 22 mmol/L (22-29); Chloride 100 mmol/L (98-107); Globulin 3.2 g/dL (1.3-4.6); Glucose 101 mg/dL (65-115); Osmolality Calculated 286 mOsm/kg (285-295); Sodium 136 mmol/L (136-145); Total Bilirubin 0.4 mg/dL (0.15-1.2); Total Protein 6.5 g/dL (6.6-8.7)
--- NOTE | 2021-03-19 17:07 | CTR_ITS ---
PROCEDURE INFORMATION: Exam: CTA Chest With Contrast Exam date and time: 03/19/2021 5:07 PM Age: 76 years old Clinical indication: Cough and shortness of breath; Prior surgery; Surgery type: Gb, thyroid, port; Additional info: Lung ca/hypoxia/suspectd covid TECHNIQUE: Imaging protocol: Computed tomographic angiography of the chest with contrast. 3D rendering (Not supervised by radiologist): MIP and/or 3D reconstructed images were created by the technologist. Radiation optimization: All CT scans at this facility use at least one of these dose optimization techniques: automated exposure control; mA and/or kV adjustment per patient size (includes targeted exams where dose is matched to clinical indication); or iterative reconstruction. Contrast material: VISI 320; Contrast volume: 71 ml; Contrast route: INTRAVENOUS (IV); COMPARISON: CR XR chest 1V portable [id number] 03/19/2021 2:46 PM RADIATION DOSE METRICS: Total DLP (mGy-cm): 568.11 FINDINGS: Pulmonary arteries: Normal. No pulmonary emboli. Aorta: Unremarkable. No aortic aneurysm. No aortic dissection. Lungs: Patchy bilateral airspace opacities, greatest in the left lower lobe suggestive of an infectious process, underlying malignancy is not excluded given provided history of lung cancer. Mild bilateral bronchiectasis. Emphysematous changes. Pleural spaces: Small left pleural effusion. Heart: Unremarkable. No cardiomegaly. No pericardial effusion. Lymph nodes: Unremarkable. No enlarged lymph nodes. Spleen: Spleen enlarged to 16 cm. Splenic cyst. Bones/joints: Unremarkable. No acute fracture. Soft tissues: Unremarkable. CT/CT angio chest PE protcl [id number] IMPRESSION: 1. Negative for pulmonary embolus. 2. Patchy bilateral airspace opacities, greatest in the left lower lobe suggestive of an infectious process, underlying malignancy is not excluded given provided history of lung cancer. 3. Mild bilateral bronchiectasis. 4. Spleen enlarged to 16 cm. 5. Splenic cyst. 6. Small left pleural effusion. 7. Emphysematous changes. Radiation Dose CTDIVOL = (mGy): DLP = 568.11 (mGy-cm)
[2021-03-19] MEDS: iodixanol 320 mg/mL 100mL Btl IV (17:50)
--- NOTE | 2021-03-19 18:44 | ECG_ITS ---
[facility] Test Date: 2021-03-19 Pat Name: Shahnaz Harper Department: Room: 273 Gender: Female Verifier: : 1945 Requested By: Naveed Camarillo Order Number: [id number] Ez MD: Cayla Pratt M.D. Measurements Intervals [place] Rate: 69 P: 53 [place]: 185 QRS: 12 QRSD: 73 T: 38 QT: 401 QTc: 432 Interpretive Statements SINUS RHYTHM LOW QRS VOLTAGE IN PRECORDIAL LEADS [QRS DEFLECTION < 1.0 mV IN CHEST LEADS] SEPTAL MYOCARDIAL INFARCTION , OF INDETERMINATE AGE [40+ ms Q WAVE IN V1/V2] Compared to ECG 03/19/2021 22:13:45 No significant changes Electronically Signed On 03-20-2021 21:49:06 SHOWROOM SALESPERSON by Cayla Pratt M.D. [id number]
--- NOTE | 2021-03-19 18:45 | P.HP_ITS ---
Providers/Chief Complaint Primary Care Provider: Dvae Nowak Chief Complaint: Low o2 sent by Dr. Larios History of Present Illness Shahnaz Harper is a 76 year old female with a past medical history of mantle cell lymphoma, COPD on 2 L, history of metastatic neuroendocrine lung cancer with PET CT evidence of primary tumor in the medial left lower lobe, with malignant pleural effusion, multiple sites of metastatic involvement including metastatic hepatic disease, multiple sites of metastatic bone involvement, hypertension, CKD stage III, GERD, SANDHYA, multinodular goiter, history of pulmonary embolism, who presents to [facility] for shortness of breath. Patient tells me that recently she has been experiencing increased shortness of breath, no orthopnea, no paroxysmal nocturnal dyspnea, has some lower extremity edema, also has complaints of pleuritic-like pain with coughing, cough, low-grade fevers, no nausea, no vomiting, no sore throat, no known sick contacts, she is received her Covid vaccines, both back in May, has received Covid vaccines, no known sick contacts, she recently had a port placement by Dr. Francisco with plans of chemotherapy for her neuroendocrine tumor as above. Review of Systems Const: Reports: fever(s), body aches, fatigue and malaise; Denies: chills Eyes: Denies: change in vision or blurry vision ENMT: Reports: nasal congestion Card: Denies: chest pain Resp: Reports: dyspnea and non-productive cough; Denies: productive cough or wheezing GI: Denies: abdominal pain, nausea, vomiting, hematemesis, diarrhea, constipation, hematochezia or melena : Denies: flank pain, dysuria or urinary frequency Musc: Denies: neck pain or back pain Skin/Breast: Denies: rash Neuro: Denies: headache(s), dizziness or vertigo Psych: Denies: anxiety or depression Endo: Denies: polyuria or polydipsia Medications/Allergies Home Medications Medication Instructions Recorded Confirmed Last Taken Type albuterol sulfate 90 mcg/actuation 2 puff INHALATION Q6H PRN 03/01/21 03/19/21 03/12/21 History aerosol inhaler amlodipine 10 mg tablet 10 mg PO QAM 03/01/21 03/19/21 03/19/21 07:25 History azelastine 137 mcg (0.1 %) nasal 2 spray INTRANASAL BID 03/01/21 03/19/21 03/19/21 07:25 History spray aerosol cholecalciferol (vitamin D3) 25 25 mcg PO QAM 03/01/21 03/19/21 03/13/21 History mcg (1,000 unit) capsule famotidine 40 mg tablet 40 mg PO BEDTIME 03/01/21 03/19/21 03/18/21 History cwboknpnzhy-xtc-dmmnyegcb-vitC 1 cap PO QAM 03/01/21 03/19/21 03/19/21 History capsule hydralazine 50 mg tablet 50 mg PO BID tab 03/01/21 03/19/21 03/19/21 07:25 History levothyroxine 75 mcg tablet 75 mcg PO QAM 03/01/21 03/19/21 03/19/21 History losartan 50 mg tablet 50 mg PO BID 03/01/21 03/19/21 03/19/21 07:25 History metoprolol succinate 100 mg 100 mg PO QAM 03/01/21 03/19/21 03/19/21 07:25 History tablet,extended release 24 hr nitroglycerin 0.4 mg sublingual 0.4 mg SUBLINGUAL Q5M PRN 03/01/21 03/19/21 Unknown History tablet pantoprazole 40 mg tablet,delayed 40 mg PO QAM 03/01/21 03/19/21 03/19/21 History release simvastatin 10 mg tablet 10 mg PO BEDTIME 03/01/21 03/19/21 03/18/21 History wheat dextrin [Benefiber Clear SF 2 tsp PO QAM 03/01/21 03/19/21 03/15/21 History (dextrin)] polyethylene glycol 3350 17 17 g PO DAILY PRN 03/06/21 03/19/21 03/12/21 History gram/dose oral powder Stiolto Respimat 2 puff INHALATION QAM 03/13/21 03/19/21 03/19/21 History fexofenadine 180 mg PO QAM 03/13/21 03/19/21 03/19/21 History levofloxacin 500 mg PO DAILY 03/19/21 03/19/21 Unknown History oxycodone-acetaminophen 1 - 2 tab PO Q6H PRN 03/19/21 03/19/21 03/19/21 11:00 History Allergies Allergy/AdvReac Type Severity Reaction Status Date / Time Penicillins Allergy ALGY-Hives Verified 03/19/21 15:22 DYES Allergy Unknown Uncoded 03/19/21 15:22 PFSH Acute PFSH: Medical History GERD (gastroesophageal reflux disease) Hypertension Hypothyroidism Mantle cell lymphoma Neuroendocrine neoplasm of lung Surgical History History of 1988 History of cholecystectomy unsure of date History of colonoscopy 2017 History of removal of Port-a-Cath 2015 History of thyroidectomy 2011 Port-A-Cath in place (03/14/21) Social History Quit status (tobacco): has quit using tobacco Former quit date comment: 12 years prior Alcohol intake: never Vitals/I&O/Wt Last Vital Signs Temp 97.8 F 03/19/21 12:52 Pulse 73 03/19/21 15:42 Resp 20 H 03/19/21 15:54 BP 125/65 03/19/21 15:42 Pulse Ox 95 03/19/21 15:42 Weight last 48 hrs Weight 91.626 kg Physical Exam Const: COMMON NORMALS: no acute distress and patient oriented x3 GENERAL APPEARANCE: cooperative and comfortable HENMT: COMMON NORMALS: normocephalic HEAD & SCALP: normocephalic Eye: COMMON NORMALS: Equal, round and reactive pupils present and EOMs intact bilaterally GENERAL EYE: appearance normal, both eyes and all related structures PUPIL: Yes Equal, round and reactive pupils present Neck/C-Spine: COMMON NORMALS: full ROM and no lymphadenopathy THYROID: Thyroid normal Lymph: LYMPHATIC: no lymphadenopathy noted Resp: COMMON NORMALS: normal respiratory effort, No retractions, No use of accessory muscles and clear to auscultation bilaterally AUSCULTATION: wheezes Cardio: COMMON NORMALS: regular rate, regular rhythm, S1 normal heart sound present, S2 normal heart sound present, No gallops present (Cardio), No clicks present (Cardio) and No murmurs present (Cardio) RATE: regular rate RHYTHM: regular rhythm HEART SOUNDS: S1 normal heart sound present and S2 normal heart sound present GI: COMMON NORMALS: Normal to inspection, nondistended, normoactive bowel sounds present, Soft to palpation, non-tender and No hepatosplenomegaly present PALPATION: Yes Soft to palpation and Yes No hepatosplenomegaly present Extremity: COMMON NORMALS: normal to inspection, full ROM and no pedal edema Neuro: COMMON NORMALS: patient oriented x3, CN's II-XII intact bilaterally, moves all extremities and no focal motor deficits Psych: COMMON NORMALS: mental status grossly normal, Normal thought process present and cooperative THOUGHT PROCESS: Normal thought process present Data : 03/19/21 14:16 03/19/21 14:16 Micro: Microbiology 03/19/21 15:39 Blood Culture - Preliminary Blood SPECIMEN COLLECTED 03/19/21 15:39 Blood Culture - Preliminary Blood SPECIMEN COLLECTED A&P Assessment and plan (1) Acute and chronic respiratory failure: -History of COPD, 2 L, history of chronic respiratory failure -Immunocompromise state with malignancy -CT angiogram of the chest no pulmonary embolism, patchy bilateral airspace opacities greater in the left lower lobe, emphysematous changes, small left pleural effusion Plan: -Rapid Covid, Covid PCR, influenza -Continue vancomycin, cefepime and azithromycin -No wheezing, will hold off on steroids for now -Monitor respiratory status closely -Continue DuoNeb, budesonide -Oxygen therapy -Follow blood cultures, sputum cultures, urine bacterial antigens -BNP, troponin series ordered -Lovenox for DVT prophylaxis -Patient is DNR/DNI Hypothyroidism : Continue levothyroxine Hypertension, continue home medications Status: Acute (2) Pneumonia: Status: Acute (3) Lung cancer metastatic to bone: Status: Acute (4) Neuroendocrine neoplasm of lung: Status: Acute (5) Chronic respiratory failure with hypoxia: Status: Acute (6) COPD (chronic obstructive pulmonary disease): Status: Acute Attestations Medical Necessity Statement*: Patient requires hospitalization, for acute on chronic respiratory failure with hypoxia secondary to pneumonia Coding Level of Care Code Acute Home Energy Consultant for [facility] Diagnoses Acute and chronic respiratory failure J96.20 Pneumonia J18.9 Lung cancer metastatic to bone C34.90; C79.51 Neuroendocrine neoplasm of lung D3A.8 Chronic respiratory failure with hypoxia J96.11 COPD (chronic obstructive pulmonary disease) J44.9
[2021-03-19] MEDS: morphine 4 mg/mL SDV 1 mL 2 MG IVP (19:18)
[2021-03-19 19:19] LABS: Partial Thromboplastin Time 26.2 SECONDS (23.9-36.7)
[2021-03-19] MEDS: cefepime 2,000 MG in sodium chloride 0.9% (plus) 50 ML 100 MG IV (19:21)
[2021-03-19 19:29] LABS: Lactic Sepsis W/Reflex 1.1 mmol/L (0.5-2.2); Troponin(5th) Baseline 17 ng/L (0-10)
[2021-03-19 19:36] LABS: NT Pro B Type Natriuretic Pept 752 pg/mL (0-125); Procalcitonin 28.13 ng/mL (0-0.5); Thyroid Stimulating Hormone 0.91 uIU/mL (0.27-4.20)
--- NOTE | 2021-03-19 20:44 | ECG_ITS ---
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 Measurements Intervals [place] Rate: 70 P: 54 MN: 176 QRS: 15 QRSD: 72 T: 41 QT: 383 QTc: 415 Interpretive Statements SINUS RHYTHM LOW QRS VOLTAGE IN PRECORDIAL LEADS [QRS DEFLECTION < 1.0 mV IN CHEST LEADS] SEPTAL MYOCARDIAL INFARCTION , OF INDETERMINATE AGE [40+ ms Q WAVE IN V1/V2] Compared to ECG 03/19/2021 14:05:04 Myocardial infarct finding now present Electronically Signed On 03-20-2021 22:00:33 FUR FINISHER TAILOR by Cayla Pratt M.D. [id number]
[2021-03-19 20:59] LABS: Influenza A by IFA Negative (Negative); Influenza B by IFA Negative (Negative); SARS Covid-2 Antigen Negative (Negative)
[2021-03-19 21:38] LABS: Troponin 5 2HR 17.91 ng/L (0-10); Troponin 5 2HR Delta 0.91 ABS# (0-10)
[2021-03-19] MEDS: atorvastatin 40 mg Tablet 20 MG PO (21:41)
[2021-03-19] MEDS: vancomycin 1,250 MG/250 ML PIGGYBACK 250 MG IV (21:42)
[2021-03-19] MEDS: famotidine 20 mg Tablet 40 MG PO (21:42)
[2021-03-19] MEDS: enoxaparin 40 mg/0.4 mL Syringe SUBCUT (21:42)
[2021-03-19] MEDS: budesonide 0.5 mg/2 mL Neb INHALATION (22:22)
[2021-03-20] VITALS (13 sets, daily range): BP systolic 115–142; BP diastolic 57–80; PULSE 66–77; RESP 16–20; TEMP 36.6–36.8; O2SAT 91–99
--- NOTE | 2021-03-20 00:44 | ECG_ITS ---
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 Measurements Intervals [place] Rate: 67 P: 74 IN: 167 QRS: 39 QRSD: 81 T: 55 QT: 403 QTc: 425 Interpretive Statements SINUS RHYTHM LOW QRS VOLTAGE IN PRECORDIAL LEADS [QRS DEFLECTION < 1.0 mV IN CHEST LEADS] SEPTAL MYOCARDIAL INFARCTION , OF INDETERMINATE AGE [40+ ms Q WAVE IN V1/V2] Compared to ECG 03/19/2021 22:14:29 No significant changes Electronically Signed On 03-20-2021 22:03:53 CLEANER AND PRESSER by Cayla Pratt M.D. [id number]
[2021-03-20 02:28] LABS: Basophils % 0.3 %; Eosinophils % 0.2 %; Hematocrit 29.1 % (37.0-47.0); Hemoglobin 9.1 g/dL (11.5-15.3); Lymphocytes # 1.4 10^3/uL (0.8-4.8); Mean Corpuscular HGB Conc 31.3 g/dL (30.0-36.0); Mean Corpuscular Hemoglobin 28.2 pg (28.0-34.0); Mean Corpuscular Volume 90.1 fl (81-99); Mean Platelet Volume 12.1 fL (7.4-10.4); Monocytes # 0.7 10^3/uL (0.2-0.9); Neutrophils # 3.84 10^3/uL (1.8-7.7); Neutrophils % 62.3 %; Nucleated Red Blood Cells % 0 %; Platelet Count 146 10^3/cmm (130-400); Red Blood Count 3.23 10^6/uL (4.1-5.3); Red Cell Distribution Width 15.5 % (12.1-15.1); White Blood Count 6.2 10^3/uL (4.0-10.0)
[2021-03-20 03:00] LABS: Troponin 5 6HR 17.62 ng/L (0-10); Troponin 5 6HR Delta 0.62 ng/L (0-12)
[2021-03-20 03:17] LABS: Alanine Aminotransferase 24 U/L (0-33); Anion Gap 17.9 (5-19); Carbon Dioxide 22 mmol/L (22-29); Chloride 100 mmol/L (98-107); Globulin 2.4 g/dL (1.3-4.6); Glucose 89 mg/dL (65-115); Magnesium 2.3 mg/dL (1.7-2.3); Osmolality Calculated 285 mOsm/kg (285-295); Potassium 4.9 mmol/L (3.5-5.1); Total Bilirubin 0.3 mg/dL (0.15-1.2)
[2021-03-20 04:13] LABS: Aspartate Amino Transferase 47 U/L (0-32); Blood Urea Nitrogen 27 mg/dL (8-23); Calcium 7.9 mg/dL (8.5-10.5); Sodium 135 mmol/L (136-145)
[2021-03-20 04:14] LABS: Alkaline Phosphatase 111 IU/L (35-105); C Reactive Protein 105.1 mg/L (0.0-4.9); NT Pro B Type Natriuretic Pept 595 pg/mL (0-125); Procalcitonin 26.05 ng/mL (0-0.5); Total Protein 5.4 g/dL (6.6-8.7)
[2021-03-20] MEDS: pantoprazole DR 40 mg Tablet PO (06:00)
[2021-03-20] MEDS: oxyCODONE-APAP 5-325 mg Tablet PO (06:00)
[2021-03-20] MEDS: amlodipine 10 mg Tablet PO (06:00)
[2021-03-20] MEDS: metoprolol succinate ER (24 HR) 100 mg Tablet PO (06:00)
[2021-03-20] MEDS: cholecalciferol (vitamin D3) 1,000 unit Tablet 1000 UNIT PO (06:00)
[2021-03-20] MEDS: levothyroxine 75 mcg Tablet PO (06:00)
[2021-03-20] MEDS: cefepime 2,000 MG in sodium chloride 0.9% (plus) 50 ML 100 MG IV ×2 (06:12→16:33)
[2021-03-20] MEDS: hyDRALAzine 50 mg Tablet PO ×2 (08:51→17:13)
[2021-03-20] MEDS: ipratropium-albuterol 3 mL Neb INHALATION ×3 (09:32→20:56)
[2021-03-20] MEDS: budesonide 0.5 mg/2 mL Neb INHALATION ×2 (09:32→20:56)
[2021-03-20] MEDS: phosphorus 250 mg Tablet PO ×2 (10:30→17:13)
--- NOTE | 2021-03-20 12:13 | CTR_ITS ---
PROCEDURE INFORMATION: Exam: CT Lumbar Spine Without Contrast Exam date and time: 03/20/2021 12:13 PM Age: 76 years old Clinical indication: Low back pain; Additional info: Lumbar pain TECHNIQUE: Imaging protocol: Computed tomography images of the lumbar spine without contrast. Sagittal, oblique axial, and coronal reformatted images were created and reviewed. Radiation optimization: All CT scans at this facility use at least one of these dose optimization techniques: automated exposure control; mA and/or kV adjustment per patient size (includes targeted exams where dose is matched to clinical indication); or iterative reconstruction. COMPARISON: No relevant prior studies available. RADIATION DOSE METRICS: Total DLP (mGy-cm): 2196.3 FINDINGS: Vertebrae: Vertebral body height is maintained. No subluxation. Normal bone mineralization. No acute fracture. Mild levoscoliosis in the visualized spine. Discs/Spinal canal/Neural foramina: Multilevel degenerative changes of varying severity in the visualized spine. Mild spinal canal stenosis at L2-L3 and L5-S1. Moderate spinal canal stenosis at L3-L4 and L4-L5. Multilevel foraminal stenosis of varying severity in the visualized spine. Epidural space: No evidence for an epidural hematoma. Lungs: Left pleural effusion with left lower lobe atelectasis and/or pneumonia is partially visualized. Vasculature: Extensive atherosclerotic changes in the visualized arteries. Large focal calcified plaque in the upper abdominal aorta with up to 80% stenosis (series 3, images 15-26). Soft tissues: No paravertebral soft tissue abnormality. No radiopaque foreign body. Partially visualized low-density focus in the spleen measuring at least 1.9 x 1.8 cm (series 3, image 10). Hounsfield units are greater than expected for simple fluid. CT/CT lumbar spine wo con* 12172 IMPRESSION: 1. No acute fracture of the lumbar spine. CT scan would be recommended if there is continuing clinical concern for fracture. 2. Multilevel degenerative changes of varying severity in the visualized spine. Mild spinal canal stenosis at L2-L3 and L5-S1. Moderate spinal canal stenosis at L3-L4 and L4-L5. Multilevel foraminal stenosis of varying severity in the visualized spine. 3. Left pleural effusion with left lower lobe atelectasis and/or pneumonia is partially visualized. Recommend clinical correlation. Recommend followup chest imaging to insure resolution of these findings. 4. Extensive atherosclerotic changes in the visualized arteries. Large focal calcified plaque in the upper abdominal aorta with up to 80% stenosis (series 3, images 15-26). 5. Partially visualized low-density focus in the spleen. Hounsfield units are greater than expected for simple fluid. For patients without history of cancer, recommend follow-up MRI in 6-12 months. With history of cancer, recommend evaluation with non-emergent PET vs. MRI vs. biopsy. 6. Incidental/nonacute findings are listed in the report. Radiation Dose CTDIVOL = (mGy): DLP = 2196.3 (mGy-cm)
[2021-03-20 16:15] LABS: Coronavirus Test Green County Detected
[2021-03-20] MEDS: azithromycin 500 MG in sodium chloride 0.9% 250 ML 250 MG IV (17:12)
--- NOTE | 2021-03-20 19:06 | P.PN_ITS ---
Subjective Subjective: Interval history: This morning patient was seen, she is currently on 4 L, she is still feels a bit weak, fatigued, tired, short of breath, her Covid is still pending Vitals/I&O/Wt Last Vital Signs Temp 98.1 F 03/20/21 15:32 Pulse 72 03/20/21 16:14 Resp 20 H 03/20/21 16:14 BP 115/60 03/20/21 15:32 Pulse Ox 93 03/20/21 16:14 03/20/21 03/20/21 03/20/21 06:59 14:59 22:59 Intake Total 420 / 470 360 / 360 300 / 660 Output Total 360 / 360 200 / 200 Balance 60 / 110 360 / 360 100 / 460 Weight last 48 hrs Weight 94.347 kg Weight 91.626 kg Physical Exam Const: COMMON NORMALS: no acute distress and patient oriented x3 Resp: COMMON NORMALS: normal respiratory effort, No retractions and No use of accessory muscles AUSCULTATION: crackles and wheezes Cardio: COMMON NORMALS: regular rate, regular rhythm, S1 normal heart sound present and S2 normal heart sound present RATE: regular rate RHYTHM: regular rhythm HEART SOUNDS: S1 normal heart sound present and S2 normal heart sound present GI: COMMON NORMALS: Normal to inspection, nondistended, normoactive bowel sounds present, Soft to palpation and non-tender PALPATION: Yes Soft to palpation Extremity: COMMON NORMALS: no pedal edema Neuro: COMMON NORMALS: patient oriented x3 Psych: COMMON NORMALS: mental status grossly normal Data : 03/20/21 01:46 03/20/21 01:46 Micro: Microbiology 03/19/21 15:39 Blood Culture - Preliminary Blood NEGATIVE TO DATE 03/19/21 15:39 Blood Culture - Preliminary Blood NEGATIVE TO DATE A&P Assessment and plan (1) Acute and chronic respiratory failure: -Secondary to COVID-19 pneumonia and possible secondary bacterial pneumonia -History of COPD, 2 L, history of chronic respiratory failure -Immunocompromise state with malignancy -CT angiogram of the chest no pulmonary embolism, patchy bilateral airspace opacities greater in the left lower lobe, emphysematous changes, small left pleural effusion -Positive Covid PCR Plan: -Continue vancomycin, cefepime and azithromycin -Decadron day 1 of 10 -Remdesivir day 1 of 10 -Monitor respiratory status closely -Continue DuoNeb, budesonide -Oxygen therapy -Follow blood cultures, sputum cultures, urine bacterial antigens -BNP elevated, will give 1 dose of Lasix -Lovenox for DVT prophylaxis -Patient is DNR/DNI Hypothyroidism : Continue levothyroxine Hypertension, continue home medications Status: Acute (2) Pneumonia: Status: Acute (3) Lung cancer metastatic to bone: Status: Acute (4) Neuroendocrine neoplasm of lung: Status: Acute (5) Chronic respiratory failure with hypoxia: Status: Acute (6) COPD (chronic obstructive pulmonary disease): Status: Acute (7) Pneumonia due to COVID-19 virus: Status: Acute Attestations Medical Necessity Statement*: Patient requires hospitalization due to acute respiratory failure secondary to COVID-19 pneumonia, secondary bacterial pneumonia Coding Level of Care Code Acute [employer]iconductor Testing Group Leader for [facility] Diagnoses Acute and chronic respiratory failure J96.20 Pneumonia J18.9 Lung cancer metastatic to bone C34.90; C79.51 Neuroendocrine neoplasm of lung D3A.8 Chronic respiratory failure with hypoxia J96.11 COPD (chronic obstructive pulmonary disease) J44.9 Pneumonia due to COVID-19 virus U07.1; J12.82
[2021-03-20] MEDS: dexamethasone 10 mg/mL INJ 6 MG IVP (20:10)
[2021-03-20] MEDS: FUROsemide 10 mg/mL SDV 4mL 40 MG IVP (20:10)
[2021-03-20] MEDS: remdesivir 200 MG in sodium chloride 0.9% (100 ml) 60 ML 100 MG IV (20:30)
[2021-03-20] MEDS: famotidine 20 mg Tablet 40 MG PO (21:23)
[2021-03-20] MEDS: enoxaparin 40 mg/0.4 mL Syringe SUBCUT (21:24)
[2021-03-20] MEDS: atorvastatin 40 mg Tablet 20 MG PO (21:24)
[2021-03-20] MEDS: vancomycin 1,250 MG/250 ML PIGGYBACK 250 MG IV (22:00)
[2021-03-21] VITALS (17 sets, daily range): BP systolic 108–145; BP diastolic 53–72; PULSE 69–93; RESP 16–24; TEMP 36.6–37.5; O2SAT 94–99
[2021-03-21] MEDS: ipratropium-albuterol 3 mL Neb INHALATION ×4 (03:28→20:07)
[2021-03-21] MEDS: cefepime 2,000 MG in sodium chloride 0.9% (plus) 50 ML 100 MG IV ×2 (04:09→16:56)
[2021-03-21 05:35] LABS: Basophils % 0.2 %; Hematocrit 31.9 % (37.0-47.0); Hemoglobin 9.5 g/dL (11.5-15.3); Lymphocytes # 0.8 10^3/uL (0.8-4.8); Lymphocytes % 13.5 %; Mean Corpuscular HGB Conc 29.8 g/dL (30.0-36.0); Mean Corpuscular Hemoglobin 26.8 pg (28.0-34.0); Mean Corpuscular Volume 89.9 fl (81-99); Mean Platelet Volume 11.9 fL (7.4-10.4); Monocytes # 0.2 10^3/uL (0.2-0.9); Monocytes % 3.6 %; Neutrophils # 4.74 10^3/uL (1.8-7.7); Neutrophils % 77.9 %; Nucleated Red Blood Cells % 0 %; Platelet Count 156 10^3/cmm (130-400); Red Blood Count 3.55 10^6/uL (4.1-5.3); Red Cell Distribution Width 15.4 % (12.1-15.1); White Blood Count 6.1 10^3/uL (4.0-10.0)
[2021-03-21 06:02] LABS: Procalcitonin 31.77 ng/mL (0-0.5)
[2021-03-21 06:10] LABS: Alanine Aminotransferase 26 U/L (0-33); Albumin Level 3.1 g/dL (3.5-5.2); Alkaline Phosphatase 122 IU/L (35-105); Aspartate Amino Transferase 45 U/L (0-32); Blood Urea Nitrogen 26 mg/dL (8-23); C Reactive Protein 64.4 mg/L (0.0-4.9); Carbon Dioxide 24 mmol/L (22-29); Chloride 101 mmol/L (98-107); Globulin 2.8 g/dL (1.3-4.6); Glucose 159 mg/dL (65-115); Magnesium 2.2 mg/dL (1.7-2.3); NT Pro B Type Natriuretic Pept 795 pg/mL (0-125); Osmolality Calculated 292 mOsm/kg (285-295); Phosphorus 2.7 mg/dL (2.5-4.5); Sodium 137 mmol/L (136-145); Total Bilirubin 0.4 mg/dL (0.15-1.2); Total Protein 5.9 g/dL (6.6-8.7)
[2021-03-21] MEDS: levothyroxine 75 mcg Tablet PO (06:14)
[2021-03-21] MEDS: metoprolol succinate ER (24 HR) 100 mg Tablet PO (06:14)
[2021-03-21] MEDS: cholecalciferol (vitamin D3) 1,000 unit Tablet 1000 UNIT PO (06:14)
[2021-03-21] MEDS: pantoprazole DR 40 mg Tablet PO (06:14)
[2021-03-21] MEDS: amlodipine 10 mg Tablet PO (06:14)
[2021-03-21 06:22] LABS: Creatine Phosphokinase 76 U/L (26-192)
[2021-03-21 06:33] LABS: D Dimer 5.14 ug/mIFEU (0-0.59)
[2021-03-21] MEDS: budesonide 0.5 mg/2 mL Neb INHALATION ×2 (09:44→20:06)
[2021-03-21] MEDS: phosphorus 250 mg Tablet PO ×2 (10:59→19:07)
[2021-03-21] MEDS: hyDRALAzine 50 mg Tablet PO ×2 (10:59→19:07)
[2021-03-21] MEDS: zinc gluconate 50 mg Tablet PO (10:59)
[2021-03-21] MEDS: ascorbic acid 500 mg Tablet PO ×2 (10:59→19:07)
--- NOTE | 2021-03-21 13:29 | P.PN_ITS ---
Subjective Subjective: Interval history: Patient was seen this morning, she is requiring 4 L, she is shocked that she is Covid positive, continues to have fatigue, malaise Vitals/I&O/Wt Last Vital Signs Temp 98.2 F 03/21/21 11:58 Pulse 81 03/21/21 11:58 Resp 17 03/21/21 11:58 BP 124/63 03/21/21 11:58 Pulse Ox 96 03/21/21 11:58 03/20/21 03/21/21 03/21/21 22:59 06:59 14:59 Intake Total 500 / 860 360 / 1220 360 / 360 Output Total 800 / 800 Balance -300 / 60 360 / 420 360 / 360 Weight last 48 hrs Weight 94.347 kg Physical Exam Const: COMMON NORMALS: no acute distress and patient oriented x3 Resp: COMMON NORMALS: normal respiratory effort, No retractions and No use of accessory muscles AUSCULTATION: wheezes Cardio: COMMON NORMALS: regular rate, regular rhythm, S1 normal heart sound present and S2 normal heart sound present RATE: regular rate RHYTHM: regular rhythm HEART SOUNDS: S1 normal heart sound present and S2 normal heart sound present GI: COMMON NORMALS: Normal to inspection, nondistended, normoactive bowel sounds present, Soft to palpation and non-tender PALPATION: Yes Soft to palpation Extremity: COMMON NORMALS: no pedal edema Neuro: COMMON NORMALS: patient oriented x3 Psych: COMMON NORMALS: mental status grossly normal Data : 03/21/21 05:06 03/21/21 05:06 Micro: Microbiology 03/19/21 15:39 Blood Culture - Preliminary Blood NEGATIVE TO DATE 03/19/21 15:39 Blood Culture - Preliminary Blood NEGATIVE TO DATE A&P Assessment and plan (1) Acute and chronic respiratory failure: -Secondary to COVID-19 pneumonia and possible secondary bacterial pneumonia -History of COPD, 2 L, history of chronic respiratory failure -Immunocompromise state with malignancy -CT angiogram of the chest no pulmonary embolism, patchy bilateral airspace opacities greater in the left lower lobe, emphysematous changes, small left pleural effusion -Positive Covid PCR Plan: -Continue vancomycin, cefepime and azithromycin -Decadron day 2 of 10 -Remdesivir day 2 of 10 -Monitor respiratory status closely -Continue DuoNeb, budesonide -Oxygen therapy -Follow blood cultures, sputum cultures, urine bacterial antigens -BNP elevated, creatinine 1.2, hold Lasix for today -Lovenox for DVT prophylaxis -Patient is DNR/DNI Hypothyroidism : Continue levothyroxine Hypertension, continue home medications Status: Acute (2) Pneumonia: Status: Acute (3) Lung cancer metastatic to bone: Status: Acute (4) Neuroendocrine neoplasm of lung: Status: Acute (5) Chronic respiratory failure with hypoxia: Status: Acute (6) COPD (chronic obstructive pulmonary disease): Status: Acute (7) Pneumonia due to COVID-19 virus: Status: Acute Attestations Medical Necessity Statement*: She requires hospitalization for acute respiratory failure, covid19 Coding Level of Care Code Acute Theology Teacher for [facility] Diagnoses Acute and chronic respiratory failure J96.20 Pneumonia J18.9 Lung cancer metastatic to bone C34.90; C79.51 Neuroendocrine neoplasm of lung D3A.8 Chronic respiratory failure with hypoxia J96.11 COPD (chronic obstructive pulmonary disease) J44.9 Pneumonia due to COVID-19 virus U07.1; J12.82
[2021-03-21] MEDS: remdesivir 100 MG in sodium chloride 0.9% (100 ml) 80 ML IV (19:02)
[2021-03-21] MEDS: enoxaparin 40 mg/0.4 mL Syringe SUBCUT (19:54)
[2021-03-21] MEDS: azithromycin 500 MG in sodium chloride 0.9% 250 ML 250 MG IV (19:54)
[2021-03-21] MEDS: dexamethasone 10 mg/mL INJ 6 MG IVP (19:54)
[2021-03-21] MEDS: oxyCODONE-APAP 5-325 mg Tablet PO (19:55)
[2021-03-21] MEDS: famotidine 20 mg Tablet 40 MG PO (20:38)
[2021-03-21] MEDS: atorvastatin 40 mg Tablet 20 MG PO (20:38)
[2021-03-21] MEDS: vancomycin 1,250 MG/250 ML PIGGYBACK 250 MG IV (21:46)
[2021-03-22] VITALS (16 sets, daily range): BP systolic 117–139; BP diastolic 59–71; PULSE 69–89; RESP 16–22; TEMP 36.6–37; O2SAT 90–97
[2021-03-22] MEDS: oxyCODONE-APAP 5-325 mg Tablet PO ×4 (02:39→20:53)
[2021-03-22] MEDS: cefepime 2,000 MG in sodium chloride 0.9% (plus) 50 ML 100 MG IV ×2 (04:08→15:10)
[2021-03-22] MEDS: levothyroxine 75 mcg Tablet PO (06:12)
[2021-03-22] MEDS: amlodipine 10 mg Tablet PO (06:12)
[2021-03-22] MEDS: metoprolol succinate ER (24 HR) 100 mg Tablet PO (06:12)
[2021-03-22] MEDS: pantoprazole DR 40 mg Tablet PO (06:12)
[2021-03-22] MEDS: cholecalciferol (vitamin D3) 1,000 unit Tablet 1000 UNIT PO (06:12)
[2021-03-22 06:20] LABS: Basophils % 0.4 %; Hematocrit 32.6 % (37.0-47.0); Lymphocytes # 1.4 10^3/uL (0.8-4.8); Lymphocytes % 13.5 %; Mean Corpuscular HGB Conc 30.7 g/dL (30.0-36.0); Mean Corpuscular Hemoglobin 27.2 pg (28.0-34.0); Mean Corpuscular Volume 88.6 fl (81-99); Monocytes # 0.5 10^3/uL (0.2-0.9); Monocytes % 4.6 %; Neutrophils % 75.6 %; Nucleated Red Blood Cells % 0 %; Platelet Count 174 10^3/cmm (130-400); Red Blood Count 3.68 10^6/uL (4.1-5.3); Red Cell Distribution Width 15.5 % (12.1-15.1); White Blood Count 10.7 10^3/uL (4.0-10.0)
[2021-03-22 06:44] LABS: D Dimer 8.99 ug/mIFEU (0-0.59)
[2021-03-22 06:49] LABS: Slide Review Slide Review Perform
[2021-03-22 07:01] LABS: NT Pro B Type Natriuretic Pept 839 pg/mL (0-125); Procalcitonin 38.26 ng/mL (0-0.5)
[2021-03-22 07:10] LABS: Alanine Aminotransferase 26 U/L (0-33); Albumin Level 3.4 g/dL (3.5-5.2); Alkaline Phosphatase 129 IU/L (35-105); Anion Gap 16.4 (5-19); Aspartate Amino Transferase 43 U/L (0-32); Blood Urea Nitrogen 37 mg/dL (8-23); C Reactive Protein 40.3 mg/L (0.0-4.9); Calcium 8.4 mg/dL (8.5-10.5); Carbon Dioxide 23 mmol/L (22-29); Chloride 104 mmol/L (98-107); Globulin 2.9 g/dL (1.3-4.6); Glucose 134 mg/dL (65-115); Magnesium 2.3 mg/dL (1.7-2.3); NT Pro B Type Natriuretic Pept 765 pg/mL (0-125); Osmolality Calculated 297 mOsm/kg (285-295); Phosphorus 3.4 mg/dL (2.5-4.5); Potassium 5.4 mmol/L (3.5-5.1); Sodium 138 mmol/L (136-145); Total Bilirubin 0.3 mg/dL (0.15-1.2); Total Protein 6.3 g/dL (6.6-8.7)
[2021-03-22 07:14] LABS: Creatine Phosphokinase 94 U/L (26-192)
[2021-03-22] MEDS: zinc gluconate 50 mg Tablet PO (08:15)
[2021-03-22] MEDS: phosphorus 250 mg Tablet PO ×2 (08:15→17:14)
[2021-03-22] MEDS: ascorbic acid 500 mg Tablet PO ×2 (08:15→17:14)
[2021-03-22] MEDS: hyDRALAzine 50 mg Tablet PO ×2 (08:15→17:14)
--- NOTE | 2021-03-22 09:12 | PC.SOCIAL ---
IMM updated, dated and initialed and copy given to patient, original put in chart
[2021-03-22] MEDS: budesonide 0.5 mg/2 mL Neb INHALATION ×2 (09:44→20:25)
[2021-03-22] MEDS: ipratropium-albuterol 3 mL Neb INHALATION ×4 (09:44→20:25)
[2021-03-22] MEDS: FUROsemide 10 mg/mL SDV 4mL 40 MG IVP (10:13)
--- NOTE | 2021-03-22 12:55 | P.PN_ITS ---
Subjective Subjective: Interval history: Patient was seen this morning, she tells me she has been urinating a lot because Lasix she got this morning, she is feeling better, on 4 L, no nausea, no vomiting, her appetite is improving Vitals/I&O/Wt Last Vital Signs Temp 97.9 F 03/22/21 11:43 Pulse 71 03/22/21 11:43 Resp 20 H 03/22/21 11:43 BP 117/70 03/22/21 11:43 Pulse Ox 95 03/22/21 11:43 03/21/21 03/22/21 03/22/21 22:59 06:59 14:59 Intake Total 980 / 1580 600 / 2180 480 / 480 Output Total 1060 / 1060 Balance 980 / 1580 -460 / 1120 480 / 480 Physical Exam Const: COMMON NORMALS: no acute distress and patient oriented x3 Resp: COMMON NORMALS: normal respiratory effort, No retractions, No use of accessory muscles and clear to auscultation bilaterally AUSCULTATION: clear to auscultation bilaterally Cardio: COMMON NORMALS: regular rate, regular rhythm, S1 normal heart sound present and S2 normal heart sound present RATE: regular rate RHYTHM: regu lar rhythm HEART SOUNDS: S1 normal heart sound present and S2 normal heart sound present GI: COMMON NORMALS: Normal to inspection, nondistended, normoactive bowel sounds present, Soft to palpation and non-tender PALPATION: Yes Soft to palpation Extremity: COMMON NORMALS: no pedal edema Neuro: COMMON NORMALS: patient oriented x3 Psych: COMMON NORMALS: mental status grossly normal Data : 03/22/21 05:41 03/22/21 05:41 A&P Assessment and plan (1) Acute and chronic respiratory failure: -History of COPD, 2 L, history of chronic respiratory failure -Immunocompromise state with malignancy -CT angiogram of the chest no pulmonary embolism, patchy bilateral airspace opacities greater in the left lower lobe, emphysematous changes, small left pleural effusion -COVID-19 pneumonia, COPD exacerbation, possible underlying secondary bacterial pneumonia Plan: -Continue vancomycin, cefepime and azithromycin -Decadron day 3 of 10 -Remdesivir day 3 of 10 -Monitor respiratory status closely -Continue DuoNeb, budesonide -Oxygen therapy -Follow blood cultures, sputum cultures, urine bacterial antigens -BNP elevated, creatinine 1.2, 1 dose of Lasix today -Lovenox for DVT prophylaxis -Patient is DNR/DNI Hypothyroidism : Continue levothyroxine Hypertension, continue home medications Status: Acute (2) Pneumonia: Status: Acute (3) Lung cancer metastatic to bone: Status: Acute (4) Neuroendocrine neoplasm of lung: Status: Acute (5) Chronic respiratory failure with hypoxia: Status: Acute (6) COPD (chronic obstructive pulmonary disease): Status: Acute (7) Pneumonia due to COVID-19 virus: Status: Acute (8) COPD exacerbation: Status: Acute Attestations Medical Necessity Statement*: Patient requires hospitalization for acute respiratory failure secondary COVID-19 pneumonia Coding Level of Care Code Acute Chief Nursing Executive for [facility] Diagnoses Acute and chronic respiratory failure J96.20 Pneumonia J18.9 Lung cancer metastatic to bone C34.90; C79.51 Neuroendocrine neoplasm of lung D3A.8 Chronic respiratory failure with hypoxia J96.11 COPD (chronic obstructive pulmonary disease) J44.9 Pneumonia due to COVID-19 virus U07.1; J12.82 COPD exacerbation J44.1
[2021-03-22] MEDS: remdesivir 100 MG in sodium chloride 0.9% (100 ml) 80 ML IV (17:15)
--- NOTE | 2021-03-22 19:00 | PC.NURSE ---
Report to Steff ROSE at this time.
[2021-03-22 19:57] LABS: Vancomycin Trough 15.7 ug/mL (10-15)
[2021-03-22] MEDS: enoxaparin 40 mg/0.4 mL Syringe SUBCUT (20:00)
[2021-03-22] MEDS: azithromycin 500 MG in sodium chloride 0.9% 250 ML 250 MG IV (20:00)
[2021-03-22] MEDS: dexamethasone 10 mg/mL INJ 6 MG IVP (20:00)
[2021-03-22] MEDS: atorvastatin 40 mg Tablet 20 MG PO (20:53)
[2021-03-22] MEDS: famotidine 20 mg Tablet 40 MG PO (20:53)
[2021-03-22] MEDS: vancomycin 1,250 MG/250 ML PIGGYBACK 250 MG IV (21:13)
[2021-03-23] VITALS (15 sets, daily range): BP systolic 122–133; BP diastolic 63–71; PULSE 70–76; RESP 16–22; TEMP 36.6–36.9; O2SAT 93–96
[2021-03-23] MEDS: ipratropium-albuterol 3 mL Neb INHALATION ×4 (02:02→20:46)
[2021-03-23] MEDS: cefepime 2,000 MG in sodium chloride 0.9% (plus) 50 ML 100 MG IV ×2 (04:40→16:55)
[2021-03-23] MEDS: oxyCODONE-APAP 5-325 mg Tablet PO ×3 (04:43→20:29)
[2021-03-23 05:58] LABS: Basophils % 0.2 %; Hematocrit 30.8 % (37.0-47.0); Hemoglobin 9.3 g/dL (11.5-15.3); Lymphocytes # 1.6 10^3/uL (0.8-4.8); Lymphocytes % 16.3 %; Mean Corpuscular HGB Conc 30.2 g/dL (30.0-36.0); Mean Corpuscular Volume 89.3 fl (81-99); Mean Platelet Volume 11.9 fL (7.4-10.4); Monocytes # 0.5 10^3/uL (0.2-0.9); Monocytes % 4.6 %; Neutrophils # 7.09 10^3/uL (1.8-7.7); Neutrophils % 71.6 %; Nucleated Red Blood Cells % 0 %; Platelet Count 159 10^3/cmm (130-400); Red Blood Count 3.45 10^6/uL (4.1-5.3); Red Cell Distribution Width 15.6 % (12.1-15.1); White Blood Count 9.9 10^3/uL (4.0-10.0)
[2021-03-23 06:16] LABS: D Dimer 8.81 ug/mIFEU (0-0.59)
[2021-03-23] MEDS: cholecalciferol (vitamin D3) 1,000 unit Tablet 1000 UNIT PO (06:21)
[2021-03-23] MEDS: levothyroxine 75 mcg Tablet PO (06:21)
[2021-03-23] MEDS: amlodipine 10 mg Tablet PO (06:21)
[2021-03-23] MEDS: pantoprazole DR 40 mg Tablet PO (06:21)
[2021-03-23] MEDS: metoprolol succinate ER (24 HR) 100 mg Tablet PO (06:21)
[2021-03-23 06:25] LABS: Alanine Aminotransferase 31 U/L (0-33); Albumin Level 3.1 g/dL (3.5-5.2); Alkaline Phosphatase 120 IU/L (35-105); Anion Gap 18.1 (5-19); Aspartate Amino Transferase 49 U/L (0-32); Blood Urea Nitrogen 37 mg/dL (8-23); C Reactive Protein 23.7 mg/L (0.0-4.9); Calcium 8.2 mg/dL (8.5-10.5); Carbon Dioxide 23 mmol/L (22-29); Chloride 101 mmol/L (98-107); Globulin 2.8 g/dL (1.3-4.6); Glucose 148 mg/dL (65-115); Osmolality Calculated 295 mOsm/kg (285-295); Phosphorus 3.5 mg/dL (2.5-4.5); Potassium 5.1 mmol/L (3.5-5.1); Sodium 137 mmol/L (136-145); Total Bilirubin 0.4 mg/dL (0.15-1.2); Total Protein 5.9 g/dL (6.6-8.7)
[2021-03-23 06:29] LABS: NT Pro B Type Natriuretic Pept 946 pg/mL (0-125); Procalcitonin 35.71 ng/mL (0-0.5)
[2021-03-23 06:40] LABS: Creatine Phosphokinase 75 U/L (26-192)
[2021-03-23 07:48] LABS: Slide Review Slide Review Perform
[2021-03-23] MEDS: phosphorus 250 mg Tablet PO ×2 (08:02→18:56)
[2021-03-23] MEDS: ascorbic acid 500 mg Tablet PO ×2 (08:02→18:56)
[2021-03-23] MEDS: zinc gluconate 50 mg Tablet PO (08:02)
[2021-03-23] MEDS: hyDRALAzine 50 mg Tablet PO ×2 (08:02→18:56)
[2021-03-23] MEDS: budesonide 0.5 mg/2 mL Neb INHALATION ×2 (08:23→20:46)
--- NOTE | 2021-03-23 13:19 | PM.PN ---
Subjective Subjective: Interval history: Patient was seen this morning, she tells me that she is having some chills this morning, no fevers, no nausea, no vomiting, no shortness of breath is on 3 L, she tells me she wants to go home with her daughter when she is ready for discharge Vitals/I&O/Wt Last Vital Signs Temp 98.5 F 03/23/21 12:07 Pulse 70 03/23/21 12:07 Resp 16 03/23/21 12:07 BP 124/70 03/23/21 12:07 Pulse Ox 94 03/23/21 12:07 03/22/21 03/23/21 03/23/21 22:59 06:59 14:59 Intake Total 870 / 1470 Output Total 1430 / 1430 Balance 870 / 1470 -1430 / 40 Physical Exam Const: COMMON NORMALS: no acute distress and patient oriented x3 Resp: COMMON NORMALS: normal respiratory effort, No retractions, No use of accessory muscles and clear to auscultation bilaterally AUSCULTATION: clear to auscultation bilaterally Cardio: COMMON NORMALS: regular rate, regular rhythm, S1 normal heart sound present and S2 normal heart sound present RATE: regular rate RHYTHM: regular rhythm HEART SOUNDS: S1 normal heart sound present and S2 normal heart sound present GI: COMMON NORMALS: Normal to inspection, nondistended, normoactive bowel sounds present, Soft to palpation and non-tender PALPATION: Yes Soft to palpation Extremity: COMMON NORMALS: no pedal edema Neuro: COMMON NORMALS: patient oriented x3 Psych: COMMON NORMALS: mental status grossly normal Data : 03/23/21 05:26 03/23/21 05:26 A&P Assessment and plan (1) Acute and chronic respiratory failure: -History of COPD, 2 L, history of chronic respiratory failure -Immunocompromise state with malignancy -CT angiogram of the chest no pulmonary embolism, patchy bilateral airspace opacities greater in the left lower lobe, emphysematous changes, small left pleural effusion -COVID-19 pneumonia, COPD exacerbation, possible underlying secondary bacterial pneumonia -WBC 9.9 -Afebrile -D-dimer 8.1 -Pro-Nash 35.71 -CRP 23.7 Plan: -Continue vancomycin, cefepime and azithromycin -Decadron day 4 of 10 -Remdesivir day 4 of 5 -Monitor respiratory status closely -Continue DuoNeb, budesonide -Oxygen therapy -Follow blood cultures, sputum cultures, urine bacterial antigens -BNP elevated, creatinine 1.2, 1 dose of Lasix today -Lovenox for DVT prophylaxis -Patient is DNR/DNI Hypothyroidism : Continue levothyroxine Hypertension, continue home medications Status: Acute (2) Pneumonia: Status: Acute (3) Lung cancer metastatic to bone: Status: Acute (4) Neuroendocrine neoplasm of lung: Status: Acute (5) Chronic respiratory failure with hypoxia: Status: Acute (6) COPD (chronic obstructive pulmonary disease): Status: Acute (7) Pneumonia due to COVID-19 virus: Status: Acute (8) COPD exacerbation: Status: Acute Attestations Medical Necessity Statement*: Patient requires hospitalization for acute respiratory failure sec to COPD, COVID-19 pneumonia Coding Level of Care Code Acute Failure Analysis Technician for [facility] Diagnoses Acute and chronic respiratory failure J96.20 Pneumonia J18.9 Lung cancer metastatic to bone C34.90; C79.51 Neuroendocrine neoplasm of lung D3A.8 Chronic respiratory failure with hypoxia J96.11 COPD (chronic obstructive pulmonary disease) J44.9 Pneumonia due to COVID-19 virus U07.1; J12.82 COPD exacerbation J44.1
--- NOTE | 2021-03-23 13:38 | PC.CHAP ---
Pastoral Care Encounter/Spiritual Assessment Type of Contact [] Declined motor vehicle assembly supervisor visit [] Patient/Family/Request visit [] Outpatient visit [xx] Follow-up visit [] Physician referral [] Code/Alert [] Routine visit [] Staff referral [] Actively dying [] Patient sleeping [] Family support [] [] Out of room [] Palliative care [] [] Receiving care in room [] Pre-surgical visit [] Trauma [xx] Long length of stay [] ICU visit [xx ] Other:ISOLATION Relational/Emotional Strength [] Patient feels connected with others/family/visitors/staff [] Distress [] Loneliness/isolation [] Abandonment Spirituality of Patient [] Person of [place] [] Attends Adventist of their [place] [] Believes in Prayer [] Reads Bible or Moravian materials [] There are Spiritual issues to be addressed Wire Saw Operator Interventions [] Prayer [] Active listening [] Non-anxious presence [] Spiritual/emotional support [] Crisis/trauma care [] Spiritual counseling [] Bereavement support [] Provided bereavement packet [] Provided Bible/devotional materials [] Provided toy/stuffed animal, coloring book to patient or family member [] Provided Communion [] Anointing/[place] [] Salvation [] Completed spiritual assessment [] Other: Impact on Illness or Injury [] Angry [] Fearful [] Anxious [] Often cries [] Exhaustion [] Unable to work [] Unable to attend yazidism [] Unable to walk/stand [] Unable to read [] Unable to drive [] Unable to eat/drink [] Unable to sleep [] Unable to be with family [] Patient intubated [] Other: Summary Time spent with patient
[2021-03-23] MEDS: remdesivir 100 MG in sodium chloride 0.9% (100 ml) 80 ML IV (18:55)
[2021-03-23] MEDS: azithromycin 500 MG in sodium chloride 0.9% 250 ML 250 MG IV (20:28)
[2021-03-23] MEDS: enoxaparin 40 mg/0.4 mL Syringe SUBCUT (20:28)
[2021-03-23] MEDS: atorvastatin 40 mg Tablet 20 MG PO (20:28)
[2021-03-23] MEDS: famotidine 20 mg Tablet 40 MG PO (20:29)
[2021-03-23] MEDS: dexamethasone 10 mg/mL INJ 6 MG IVP (20:33)
[2021-03-23] MEDS: vancomycin 1,250 MG/250 ML PIGGYBACK 250 MG IV (21:39)
[2021-03-24] VITALS (16 sets, daily range): BP systolic 116–155; BP diastolic 61–76; PULSE 70–82; RESP 16–20; TEMP 36.7–37.4; O2SAT 90–96
[2021-03-24] MEDS: ipratropium-albuterol 3 mL Neb INHALATION ×3 (02:30→20:38)
[2021-03-24] MEDS: cefepime 2,000 MG in sodium chloride 0.9% (plus) 50 ML 100 MG IV ×2 (03:44→15:56)
[2021-03-24 04:56] LABS: Basophils % 0.2 %; Eosinophils % 0.1 %; Hemoglobin 9.4 g/dL (11.5-15.3); Lymphocytes # 1.3 10^3/uL (0.8-4.8); Lymphocytes % 13.6 %; Mean Corpuscular HGB Conc 31.3 g/dL (30.0-36.0); Mean Corpuscular Hemoglobin 27.8 pg (28.0-34.0); Mean Corpuscular Volume 88.8 fl (81-99); Mean Platelet Volume 12.1 fL (7.4-10.4); Monocytes # 0.4 10^3/uL (0.2-0.9); Monocytes % 3.7 %; Neutrophils % 74.1 %; Nucleated Red Blood Cells % 0.2 %; Platelet Count 155 10^3/cmm (130-400); Red Blood Count 3.38 10^6/uL (4.1-5.3); Red Cell Distribution Width 15.7 % (12.1-15.1); White Blood Count 9.4 10^3/uL (4.0-10.0)
[2021-03-24] MEDS: oxyCODONE-APAP 5-325 mg Tablet PO ×3 (05:09→18:37)
[2021-03-24] MEDS: metoprolol succinate ER (24 HR) 100 mg Tablet PO (05:10)
[2021-03-24] MEDS: cholecalciferol (vitamin D3) 1,000 unit Tablet 1000 UNIT PO (05:10)
[2021-03-24] MEDS: levothyroxine 75 mcg Tablet PO (05:10)
[2021-03-24] MEDS: pantoprazole DR 40 mg Tablet PO (05:10)
[2021-03-24] MEDS: amlodipine 10 mg Tablet PO (05:10)
[2021-03-24 05:26] LABS: Slide Review Slide Review Perform
[2021-03-24 05:38] LABS: Alanine Aminotransferase 39 U/L (0-33); Alkaline Phosphatase 140 IU/L (35-105); Anion Gap 16.7 (5-19); Aspartate Amino Transferase 58 U/L (0-32); Blood Urea Nitrogen 35 mg/dL (8-23); C Reactive Protein 17.1 mg/L (0.0-4.9); Calcium 7.9 mg/dL (8.5-10.5); Carbon Dioxide 22 mmol/L (22-29); Chloride 103 mmol/L (98-107); Globulin 2.8 g/dL (1.3-4.6); Glucose 148 mg/dL (65-115); Magnesium 2.1 mg/dL (1.7-2.3); NT Pro B Type Natriuretic Pept 802 pg/mL (0-125); Osmolality Calculated 293 mOsm/kg (285-295); Phosphorus 2.9 mg/dL (2.5-4.5); Potassium 5.7 mmol/L (3.5-5.1); Sodium 136 mmol/L (136-145); Total Bilirubin 0.4 mg/dL (0.15-1.2); Total Protein 5.8 g/dL (6.6-8.7)
[2021-03-24] MEDS: hyDRALAzine 50 mg Tablet PO ×2 (09:00→18:01)
[2021-03-24] MEDS: phosphorus 250 mg Tablet PO ×2 (09:00→18:01)
[2021-03-24] MEDS: ascorbic acid 500 mg Tablet PO ×2 (09:00→18:01)
[2021-03-24] MEDS: acetaminophen 325 mg Tablet 650 MG PO (09:00)
[2021-03-24] MEDS: zinc gluconate 50 mg Tablet PO (09:01)
[2021-03-24 10:18] LABS: Glucose Point of Care 159 mg/dL (70-110)
[2021-03-24] MEDS: FUROsemide 10 mg/mL SDV 4mL 40 MG IVP (10:27)
[2021-03-24] MEDS: dextrose 50% syringe 50 mL IVP (10:27)
[2021-03-24] MEDS: insulin lispro 100 unit/1 mL 10 UNIT SUBCUT (10:28)
--- NOTE | 2021-03-24 12:10 | PC.SOCIAL ---
IMM Updated Updated pt's daughter, via phone, on IMM. No questioned voiced. Provided pt a copy. Initialed, dated, & timed copy in chart.
[2021-03-24 17:00] LABS: Glucose Point of Care 124 mg/dL (70-110)
--- NOTE | 2021-03-24 17:07 | P.PN_ITS ---
Subjective Subjective: Interval history: Patient was seen this morning, she is on 2 to 3 L, reports chronic tiredness, fatigue, malaise, she tells me that she cannot take care of herself at home, she feels that she needs increased help, continues to have a cough Vitals/I&O/Wt Last Vital Signs Temp 99.0 F 03/24/21 15:11 Pulse 75 03/24/21 15:11 Resp 16 03/24/21 15:11 BP 126/61 03/24/21 15:11 Pulse Ox 96 03/24/21 15:11 03/24/21 03/24/21 03/24/21 06:59 14:59 22:59 Intake Total 300 / 1290 520 / 520 Balance 300 / 1290 520 / 520 Physical Exam Const: COMMON NORMALS: no acute distress and patient oriented x3 Resp: COMMON NORMALS: normal respiratory effort, No retractions, No use of accessory muscles and clear to auscultation bilaterally AUSCULTATION: clear to auscultation bilaterally Cardio: COMMON NORMALS: regular rate, regular rhythm, S1 normal heart sound present and S2 normal heart sound present RATE: regular rate RHYTHM: regular rhythm HEART SOUNDS: S1 normal heart sound present and S2 normal heart sound present GI: COMMON NORMALS: Normal to inspection, nondistended, normoactive bowel sounds present, Soft to palpation, non-tender, No hepatosplenomegaly present, no masses and no bruits PALPATION: Yes Soft to palpation and Yes No hepatosplenomegaly present Extremity: COMMON NORMALS: no pedal edema Neuro: COMMON NORMALS: patient oriented x3 Psych: COMMON NORMALS: mental status grossly normal Data : 03/24/21 04:18 03/24/21 04:18 Micro: Microbiology 03/19/21 15:39 Blood Culture - Final Blood NO GROWTH AFTER 5 DAYS 03/19/21 15:39 Blood Culture - Final Blood NO GROWTH AFTER 5 DAYS A&P Assessment and plan (1) Acute and chronic respiratory failure: -History of COPD, 2 L, history of chronic respiratory failure -Immunocompromise state with malignancy -CT angiogram of the chest no pulmonary embolism, patchy bilateral airspace opacities greater in the left lower lobe, emphysematous changes, small left pleural effusion -COVID-19 pneumonia, COPD exacerbation, possible underlying secondary bacterial pneumonia Plan: -Continue vancomycin, cefepime and azithromycin -Decadron day 5 of 10 -Remdesivir day 5 of 5 -Monitor respiratory status closely -Continue DuoNeb, budesonide -Oxygen therapy -Follow blood cultures, sputum cultures, urine bacterial antigens -BNP elevated, creatinine 1.2, 1 dose of Lasix today -Lovenox for DVT prophylaxis -Patient is DNR/DNI Hyperkalemia, D50, insulin, Lasix Deconditioning, weakness, will require shelter placement Hypothyroidism : Continue levothyroxine Hypertension, continue home medications Status: Acute (2) Pneumonia: Status: Acute (3) Lung cancer metastatic to bone: Status: Acute (4) Neuroendocrine neoplasm of lung: Status: Acute (5) Chronic respiratory failure with hypoxia: Status: Acute (6) COPD (chronic obstructive pulmonary disease): Status: Acute (7) Pneumonia due to COVID-19 virus: Status: Acute (8) COPD exacerbation: Status: Acute Attestations Medical Necessity Statement*: Patient requires hospitalization for acute respiratory failure secondary COVID-19 Coding Level of Care Code Acute Electronic Warfare Specialist for [facility] [place] Diagnoses Acute and chronic respiratory failure J96.20 Pneumonia J18.9 Lung cancer metastatic to bone C34.90; C79.51 Neuroendocrine neoplasm of lung D3A.8 Chronic respiratory failure with hypoxia J96.11 COPD (chronic obstructive pulmonary disease) J44.9 Pneumonia due to COVID-19 virus U07.1; J12.82 COPD exacerbation J44.1
[2021-03-24] MEDS: remdesivir 100 MG in sodium chloride 0.9% (100 ml) 80 ML IV (18:00)
[2021-03-24] MEDS: dexamethasone 10 mg/mL INJ 6 MG IVP (20:37)
[2021-03-24] MEDS: budesonide 0.5 mg/2 mL Neb INHALATION (20:38)
[2021-03-24] MEDS: azithromycin 500 MG in sodium chloride 0.9% 250 ML 250 MG IV (20:58)
[2021-03-24] MEDS: vancomycin 1,250 MG/250 ML PIGGYBACK 250 MG IV (20:58)
[2021-03-24] MEDS: atorvastatin 40 mg Tablet 20 MG PO (20:59)
[2021-03-24] MEDS: famotidine 20 mg Tablet 40 MG PO (20:59)
[2021-03-24] MEDS: enoxaparin 40 mg/0.4 mL Syringe SUBCUT (20:59)
[2021-03-24 21:04] LABS: Glucose Point of Care 127 mg/dL (70-110)
[2021-03-25] VITALS (15 sets, daily range): BP systolic 114–154; BP diastolic 60–75; PULSE 63–81; RESP 16–24; TEMP 36.6–37; O2SAT 93–97
[2021-03-25] MEDS: oxyCODONE-APAP 5-325 mg Tablet PO ×4 (00:18→21:46)
[2021-03-25] MEDS: ipratropium-albuterol 3 mL Neb INHALATION ×4 (02:46→20:59)
[2021-03-25] MEDS: cefepime 2,000 MG in sodium chloride 0.9% (plus) 50 ML 100 MG IV (03:56)
[2021-03-25 05:30] LABS: Basophils % 0.3 %; Eosinophils % 0.1 %; Hematocrit 32.9 % (37.0-47.0); Hemoglobin 10.1 g/dL (11.5-15.3); Lymphocytes # 1.7 10^3/uL (0.8-4.8); Lymphocytes % 14.8 %; Mean Corpuscular HGB Conc 30.7 g/dL (30.0-36.0); Mean Corpuscular Hemoglobin 27.2 pg (28.0-34.0); Mean Corpuscular Volume 88.4 fl (81-99); Mean Platelet Volume 12.2 fL (7.4-10.4); Monocytes # 0.6 10^3/uL (0.2-0.9); Monocytes % 4.8 %; Neutrophils # 8.58 10^3/uL (1.8-7.7); Neutrophils % 72.9 %; Nucleated Red Blood Cells % 0 %; Platelet Count 165 10^3/cmm (130-400); Red Blood Count 3.72 10^6/uL (4.1-5.3); Red Cell Distribution Width 15.9 % (12.1-15.1); White Blood Count 11.8 10^3/uL (4.0-10.0)
[2021-03-25] MEDS: cholecalciferol (vitamin D3) 1,000 unit Tablet 1000 UNIT PO (06:00)
[2021-03-25] MEDS: metoprolol succinate ER (24 HR) 100 mg Tablet PO (06:00)
[2021-03-25] MEDS: levothyroxine 75 mcg Tablet PO (06:00)
[2021-03-25] MEDS: pantoprazole DR 40 mg Tablet PO (06:00)
[2021-03-25 06:16] LABS: Alanine Aminotransferase 52 U/L (0-33); Albumin Level 2.9 g/dL (3.5-5.2); Alkaline Phosphatase 153 IU/L (35-105); Anion Gap 15.1 (5-19); Aspartate Amino Transferase 70 U/L (0-32); Blood Urea Nitrogen 32 mg/dL (8-23); C Reactive Protein 12.9 mg/L (0.0-4.9); Calcium 8.4 mg/dL (8.5-10.5); Carbon Dioxide 25 mmol/L (22-29); Globulin 2.5 g/dL (1.3-4.6); Glucose 178 mg/dL (65-115); Magnesium 2.1 mg/dL (1.7-2.3); Osmolality Calculated 289 mOsm/kg (285-295); Phosphorus 2.9 mg/dL (2.5-4.5); Potassium 5.1 mmol/L (3.5-5.1); Sodium 134 mmol/L (136-145); Total Bilirubin 0.3 mg/dL (0.15-1.2); Total Protein 5.4 g/dL (6.6-8.7)
[2021-03-25 06:17] LABS: Chloride 99 mmol/L (98-107)
[2021-03-25 06:20] LABS: Slide Review Slide Review Perform
[2021-03-25 06:30] LABS: Glucose Point of Care 139 mg/dL (70-110)
[2021-03-25] MEDS: budesonide 0.5 mg/2 mL Neb INHALATION ×2 (08:00→20:59)
[2021-03-25] MEDS: zinc gluconate 50 mg Tablet PO (08:33)
[2021-03-25] MEDS: ascorbic acid 500 mg Tablet PO ×2 (08:33→17:45)
[2021-03-25] MEDS: hyDRALAzine 50 mg Tablet PO ×2 (08:33→17:45)
[2021-03-25] MEDS: phosphorus 250 mg Tablet PO ×2 (08:34→17:45)
--- NOTE | 2021-03-25 09:36 | XRR_ITS ---
PROCEDURE INFORMATION: Exam: XR Chest Exam date and time: 03/25/2021 9:36 AM Age: 76 years old Clinical indication: Shortness of breath; Prior surgery; Surgery date: 6+ months; Surgery type: Port; Additional info: SOB, increasingly worse TECHNIQUE: Imaging protocol: XR of the chest. Views: 1 view. COMPARISON: CR XR chest 1V portable [id number] 03/19/2021 2:46 PM FINDINGS: Tubes, catheters and devices: Stable right Mediport catheter. Lungs: Stable moderate left basilar atelectasis and/or infiltrate and/or effusion. Pleural spaces: Unremarkable. No pleural effusion. No pneumothorax. Heart/Mediastinum: Unremarkable. No cardiomegaly. Bones/joints: Moderate thoracic spondylosis. XR/XR chest 1V portable [id number] IMPRESSION: 1. 2. Stable right Mediport catheter. Radiation Dose CTDIVOL = (mGy): DLP = (mGy-cm)
[2021-03-25 09:50] LABS: NT Pro B Type Natriuretic Pept 1342 pg/mL (0-125)
[2021-03-25 11:15] LABS: Glucose Point of Care 176 mg/dL (70-110)
[2021-03-25] MEDS: polyethylene glycol 3350 Pkt 17 gm PO (14:37)
--- NOTE | 2021-03-25 15:01 | P.PN_ITS ---
Subjective Subjective: Interval history: Patient was seen this morning, she continues to feel weak, no fevers, denies chills, no nausea, no vomiting,, is on 2 L Vitals/I&O/Wt Last Vital Signs Temp 97.9 F 03/25/21 11:19 Pulse 77 03/25/21 13:27 Resp 18 03/25/21 14:40 BP 154/71 03/25/21 11:19 Pulse Ox 95 03/25/21 13:27 03/25/21 03/25/21 03/25/21 06:59 14:59 22:59 Intake Total 550 / 1800 840 / 840 Balance 550 / 1800 840 / 840 Physical Exam Const: COMMON NORMALS: no acute distress and patient oriented x3 Resp: COMMON NORMALS: normal respiratory effort, No retractions, No use of accessory muscles and clear to auscultation bilaterally AUSCULTATION: clear to auscultation bilaterally Cardio: COMMON NORMALS: regular rate, regular rhythm, S1 normal heart sound present and S2 normal heart sound present RATE: regular rate RHYTHM: regular rhythm HEART SOUNDS: S1 normal heart sound present and S2 normal heart sound present GI: COMMON NORMALS: Normal to inspection, nondistended, normoactive bowel sounds present, Soft to palpation, non-tender and No hepatosplenomegaly present PALPATION: Yes Soft to palpation and Yes No hepatosplenomegaly present Extremity: COMMON NORMALS: no pedal edema Neuro: COMMON NORMALS: patient oriented x3 Psych: COMMON NORMALS: mental status grossly normal Data : 03/25/21 04:39 03/25/21 04:39 Micro: Microbiology 03/25/21 10:57 Blood Culture - Preliminary Blood SPECIMEN COLLECTED 03/19/21 15:39 Blood Culture - Final Blood NO GROWTH AFTER 5 DAYS 03/19/21 15:39 Blood Culture - Final Blood NO GROWTH AFTER 5 DAYS A&P Assessment and plan (1) Acute and chronic respiratory failure: -History of COPD, 2 L, history of chronic respiratory failure -Immunocompromise state with malignancy -CT angiogram of the chest no pulmonary embolism, patchy bilateral airspace opacities greater in the left lower lobe, emphysematous changes, small left pleural effusion -COVID-19 pneumonia, COPD exacerbation, possible underlying secondary bacterial pneumonia Plan: -De-escalate antibiotics to Levaquin -Decadron day 6 of 10 -Remdesivir day 5 of 5 -Monitor respiratory status closely -Continue DuoNeb, budesonide -Oxygen therapy -Follow blood cultures, sputum cultures, urine bacterial antigens -BNP elevated, creatinine 1.2, hold off on Lasix -Lovenox for DVT prophylaxis -Patient is DNR/DNI Hyperkalemia, resolved Deconditioning, weakness, will require [facility] placement Hypothyroidism : Continue levothyroxine Hypertension, continue home medications Working on [facility] placement Status: Acute (2) Pneumonia: Status: Acute (3) Lung cancer metastatic to bone: Status: Acute (4) Neuroendocrine neoplasm of lung: Status: Acute (5) Chronic respiratory failure with hypoxia: Status: Acute (6) COPD (chronic obstructive pulmonary disease): Status: Acute (7) Pneumonia due to COVID-19 virus: Status: Acute (8) COPD exacerbation: Status: Acute Attestations Medical Necessity Statement*: Patient requires hospitalization for acute respiratory failure secondary to COVID-19 pneumonia Coding Level of Care Code Acute Skein Mercerizing Machine Operator for [facility] Diagnoses Acute and chronic respiratory failure J96.20 Pneumonia J18.9 Lung cancer metastatic to bone C34.90; C79.51 Neuroendocrine neoplasm of lung D3A.8 Chronic respiratory failure with hypoxia J96.11 COPD (chronic obstructive pulmonary disease) J44.9 Pneumonia due to COVID-19 virus U07.1; J12.82 COPD exacerbation J44.1
[2021-03-25 16:55] LABS: Glucose Point of Care 130 mg/dL (70-110)
[2021-03-25 21:07] LABS: Glucose Point of Care 112 mg/dL (70-110)
[2021-03-25] MEDS: atorvastatin 40 mg Tablet 20 MG PO (21:45)
[2021-03-25] MEDS: famotidine 20 mg Tablet 40 MG PO (21:45)
[2021-03-25] MEDS: dexamethasone 10 mg/mL INJ 6 MG IVP (21:45)
[2021-03-25] MEDS: enoxaparin 40 mg/0.4 mL Syringe SUBCUT (21:46)
[2021-03-26] VITALS (15 sets, daily range): BP systolic 119–158; BP diastolic 56–77; PULSE 69–88; RESP 14–22; TEMP 36.4–37.2; O2SAT 93–97
[2021-03-26] MEDS: ipratropium-albuterol 3 mL Neb INHALATION ×3 (03:03→21:07)
[2021-03-26 03:57] LABS: Basophils % 0.2 %; Eosinophils % 0.1 %; Hematocrit 34.6 % (37.0-47.0); Hemoglobin 10.3 g/dL (11.5-15.3); Lymphocytes # 1.6 10^3/uL (0.8-4.8); Lymphocytes % 13.2 %; Mean Corpuscular HGB Conc 29.8 g/dL (30.0-36.0); Mean Corpuscular Hemoglobin 26.8 pg (28.0-34.0); Mean Corpuscular Volume 90.1 fl (81-99); Mean Platelet Volume 12.1 fL (7.4-10.4); Monocytes # 0.4 10^3/uL (0.2-0.9); Monocytes % 3.1 %; Neutrophils # 9.47 10^3/uL (1.8-7.7); Neutrophils % 78.3 %; Nucleated Red Blood Cells % 0 %; Platelet Count 151 10^3/cmm (130-400); Red Blood Count 3.84 10^6/uL (4.1-5.3); Red Cell Distribution Width 15.9 % (12.1-15.1); White Blood Count 12.1 10^3/uL (4.0-10.0)
[2021-03-26 04:34] LABS: Alanine Aminotransferase 67 U/L (0-33); Albumin Level 3.1 g/dL (3.5-5.2); Alkaline Phosphatase 161 IU/L (35-105); Anion Gap 14.8 (5-19); Aspartate Amino Transferase 92 U/L (0-32); Blood Urea Nitrogen 30 mg/dL (8-23); C Reactive Protein 9.8 mg/L (0.0-4.9); Calcium 8.3 mg/dL (8.5-10.5); Carbon Dioxide 26 mmol/L (22-29); Chloride 99 mmol/L (98-107); Globulin 2.8 g/dL (1.3-4.6); Glucose 151 mg/dL (65-115); Magnesium 2.2 mg/dL (1.7-2.3); NT Pro B Type Natriuretic Pept 675 pg/mL (0-125); Osmolality Calculated 287 mOsm/kg (285-295); Phosphorus 3.1 mg/dL (2.5-4.5); Potassium 5.8 mmol/L (3.5-5.1); Sodium 134 mmol/L (136-145); Total Bilirubin 0.4 mg/dL (0.15-1.2); Total Protein 5.9 g/dL (6.6-8.7)
[2021-03-26 04:38] LABS: Slide Review Slide Review Perform
[2021-03-26] MEDS: metoprolol succinate ER (24 HR) 100 mg Tablet PO (05:10)
[2021-03-26] MEDS: levothyroxine 75 mcg Tablet PO (05:11)
[2021-03-26] MEDS: levoFLOXacin 750 mg Tablet PO (05:11)
[2021-03-26] MEDS: pantoprazole DR 40 mg Tablet PO (05:11)
[2021-03-26] MEDS: amlodipine 10 mg Tablet PO (05:11)
[2021-03-26] MEDS: cholecalciferol (vitamin D3) 1,000 unit Tablet 1000 UNIT PO (05:12)
[2021-03-26] MEDS: oxyCODONE-APAP 5-325 mg Tablet PO ×4 (05:12→23:09)
[2021-03-26 06:20] LABS: Glucose Point of Care 139 mg/dL (70-110)
[2021-03-26] MEDS: budesonide 0.5 mg/2 mL Neb INHALATION ×2 (08:18→21:07)
[2021-03-26] MEDS: polyethylene glycol 3350 Pkt 17 gm PO (08:49)
[2021-03-26] MEDS: ascorbic acid 500 mg Tablet PO ×2 (08:49→17:30)
[2021-03-26] MEDS: zinc gluconate 50 mg Tablet PO (08:49)
[2021-03-26] MEDS: hyDRALAzine 50 mg Tablet PO ×2 (08:49→17:30)
[2021-03-26] MEDS: acetaminophen 325 mg Tablet 650 MG PO ×2 (08:49→21:49)
[2021-03-26] MEDS: phosphorus 250 mg Tablet PO (08:49)
[2021-03-26] MEDS: sodium polystyrene sulfonate 15 gm/60 mL Btl PO (10:14)
--- NOTE | 2021-03-26 11:01 | PC.SOCIAL ---
IMM Update Pg. 2 of IMM updated and reviewed with patient, who verbalized understanding. Copy provided.
[2021-03-26 18:07] LABS: Glucose Point of Care 149 mg/dL (70-110)
--- NOTE | 2021-03-26 18:11 | PM.PN ---
Subjective Subjective: Interval history: Patient was seen this morning, continues to complain of significant weakness, fatigue, Feeling sad about the current situation. Saturating well on 2 Ls oxygen. Medications: Reviewed: Yes Vitals/I&O/Wt Last Vital Signs Temp 98.5 F 03/26/21 16:00 Pulse 84 03/26/21 16:00 Resp 16 03/26/21 17:30 BP 136/77 03/26/21 16:00 Pulse Ox 94 03/26/21 17:30 03/26/21 03/26/21 03/26/21 06:59 14:59 22:59 Intake Total 360 / 360 0 / 360 Balance 360 / 360 0 / 360 Physical Exam Const: COMMON NORMALS: patient oriented x3 HENMT: COMMON NORMALS: normocephalic and atraumatic HEAD & SCALP: normocephalic and atraumatic Resp: OTHER: Diminished air entry bilaterally Cardio: COMMON NORMALS: regular rate, regular rhythm, S1 normal heart sound present, S2 normal heart sound present, No gallops present (Cardio), No murmurs present (Cardio), No rub (Cardio) and Peripheral pulses 2+ throughout RATE: regular rate RHYTHM: regular rhythm HEART SOUNDS: S1 normal heart sound present and S2 normal heart sound present PERIPHERAL PULSES: Peripheral pulses 2+ throughout GI: COMMON NORMALS: Normal to inspection, nondistended, normoactive bowel sounds present, Soft to palpation, non-tender, No hepatosplenomegaly present and no masses AUSCULTATION: Yes normoactive bowel sounds PALPATION: Yes Soft to palpation and Yes No hepatosplenomegaly present RECTAL EXAM: deferred Extremity: COMMON NORMALS: no clubbing, cyanosis or edema and no pedal edema Neuro: COMMON NORMALS: patient oriented x3 Data : 03/26/21 03:21 03/26/21 03:21 Micro: Microbiology 03/25/21 10:20 MRSA Culture - Final Nose 03/25/21 10:57 Blood Culture - Preliminary Blood NEGATIVE TO DATE 03/25/21 17:49 Gram Stain - Final Sputum - Expectorated Sputum 03/25/21 10:53 Blood Culture - Preliminary Blood SPECIMEN COLLECTED A&P Assessment and plan (1) Acute and chronic respiratory failure: -History of COPD, 2 L, history of chronic respiratory failure -Immunocompromise state with malignancy -CT angiogram of the chest no pulmonary embolism, patchy bilateral airspace opacities greater in the left lower lobe, emphysematous changes, small left pleural effusion -COVID-19 pneumonia, COPD exacerbation, possible underlying secondary bacterial pneumonia Plan: -De-escalate antibiotics to Levaquin -Decadron day 6 of 10 -Remdesivir day 5 of 5 -Monitor respiratory status closely -Continue DuoNeb, budesonide -Oxygen therapy -Follow blood cultures, sputum cultures, urine bacterial antigens -BNP elevated, creatinine 1.2, hold off on Lasix -Lovenox for DVT prophylaxis -Patient is DNR/DNI Hyperkalemia, resolved Deconditioning, weakness, will require care home placement Hypothyroidism : Continue levothyroxine Hypertension, continue home medications Working on care home placement Status: Acute (2) Pneumonia: Status: Acute (3) Lung cancer metastatic to bone: Status: Acute (4) Neuroendocrine neoplasm of lung: Status: Acute (5) Chronic respiratory failure with hypoxia: Status: Acute (6) COPD (chronic obstructive pulmonary disease): Status: Acute (7) Pneumonia due to COVID-19 virus: Status: Acute (8) COPD exacerbation: Status: Acute Attestations Medical Necessity Statement*: Patient needs to be in hospital for management of pneumonia. Coding Level of Care Code Acute Interactive Media Marketing Director for [facility] Diagnoses Acute and chronic respiratory failure J96.20 Pneumonia J18.9 Lung cancer metastatic to bone C34.90; C79.51 Neuroendocrine neoplasm of lung D3A.8 Chronic respiratory failure with hypoxia J96.11 COPD (chronic obstructive pulmonary disease) J44.9 Pneumonia due to COVID-19 virus U07.1; J12.82 COPD exacerbation J44.1
[2021-03-26] MEDS: atorvastatin 40 mg Tablet 20 MG PO (20:12)
[2021-03-26] MEDS: enoxaparin 40 mg/0.4 mL Syringe SUBCUT (20:12)
[2021-03-26] MEDS: dexamethasone 10 mg/mL INJ 6 MG IVP (20:13)
[2021-03-26] MEDS: famotidine 20 mg Tablet 40 MG PO (20:13)
[2021-03-26 21:30] LABS: Glucose Point of Care 182 mg/dL (70-110)
[2021-03-27] VITALS (14 sets, daily range): BP systolic 105–135; BP diastolic 60–69; PULSE 69–79; RESP 16–23; TEMP 36.4–36.9; O2SAT 91–97
[2021-03-27] MEDS: cholecalciferol (vitamin D3) 1,000 unit Tablet 1000 UNIT PO (05:14)
[2021-03-27] MEDS: levothyroxine 75 mcg Tablet PO (05:14)
[2021-03-27] MEDS: amlodipine 10 mg Tablet PO (05:14)
[2021-03-27] MEDS: oxyCODONE-APAP 5-325 mg Tablet PO ×3 (05:15→18:41)
[2021-03-27] MEDS: pantoprazole DR 40 mg Tablet PO (05:15)
[2021-03-27] MEDS: metoprolol succinate ER (24 HR) 100 mg Tablet PO (05:15)
[2021-03-27 06:46] LABS: Glucose Point of Care 139 mg/dL (70-110)
[2021-03-27 06:59] LABS: Basophils % 0.2 %; Hematocrit 33.3 % (37.0-47.0); Hemoglobin 10.4 g/dL (11.5-15.3); Lymphocytes # 1.4 10^3/uL (0.8-4.8); Lymphocytes % 12.7 %; Mean Corpuscular HGB Conc 31.2 g/dL (30.0-36.0); Mean Corpuscular Hemoglobin 27.3 pg (28.0-34.0); Mean Corpuscular Volume 87.4 fl (81-99); Mean Platelet Volume 11.8 fL (7.4-10.4); Monocytes # 0.5 10^3/uL (0.2-0.9); Monocytes % 4.3 %; Neutrophils # 8.71 10^3/uL (1.8-7.7); Neutrophils % 78.8 %; Nucleated Red Blood Cells % 0 %; Platelet Count 150 10^3/cmm (130-400); Red Blood Count 3.81 10^6/uL (4.1-5.3); Red Cell Distribution Width 16.1 % (12.1-15.1); White Blood Count 11.1 10^3/uL (4.0-10.0)
[2021-03-27 07:31] LABS: Alanine Aminotransferase 67 U/L (0-33); Albumin Level 3.1 g/dL (3.5-5.2); Alkaline Phosphatase 162 IU/L (35-105); Anion Gap 14.4 (5-19); Aspartate Amino Transferase 78 U/L (0-32); Blood Urea Nitrogen 27 mg/dL (8-23); Calcium 8.3 mg/dL (8.5-10.5); Carbon Dioxide 27 mmol/L (22-29); Chloride 98 mmol/L (98-107); Globulin 2.4 g/dL (1.3-4.6); Glucose 132 mg/dL (65-115); Magnesium 2.4 mg/dL (1.7-2.3); Osmolality Calculated 285 mOsm/kg (285-295); Phosphorus 3.7 mg/dL (2.5-4.5); Potassium 5.4 mmol/L (3.5-5.1); Sodium 134 mmol/L (136-145); Total Bilirubin 0.4 mg/dL (0.15-1.2); Total Protein 5.5 g/dL (6.6-8.7)
[2021-03-27] MEDS: ascorbic acid 500 mg Tablet PO ×2 (08:33→17:23)
[2021-03-27] MEDS: zinc gluconate 50 mg Tablet PO (08:33)
[2021-03-27] MEDS: hyDRALAzine 50 mg Tablet PO ×2 (08:33→17:23)
[2021-03-27] MEDS: polyethylene glycol 3350 Pkt 17 gm PO (08:52)
[2021-03-27] MEDS: ipratropium-albuterol 3 mL Neb INHALATION ×2 (09:04→20:14)
[2021-03-27] MEDS: budesonide 0.5 mg/2 mL Neb INHALATION ×2 (09:04→20:14)
[2021-03-27 12:23] LABS: Glucose Point of Care 179 mg/dL (70-110)
--- NOTE | 2021-03-27 13:49 | PM.PN ---
Subjective Subjective: Interval history: Patient was seen this morning, she was overall doing okay today, weakness is improved. Appetite is good. Medications: Reviewed: Yes Vitals/I&O/Wt Last Vital Signs Temp 97.9 F 03/27/21 11:45 Pulse 74 03/27/21 11:45 Resp 20 H 03/27/21 12:02 BP 121/64 03/27/21 11:45 Pulse Ox 94 03/27/21 12:02 03/26/21 03/27/21 03/27/21 22:59 06:59 14:59 Intake Total 120 / 480 360 / 840 480 / 480 Balance 120 / 480 360 / 840 480 / 480 Physical Exam Const: COMMON NORMALS: patient oriented x3 HENMT: COMMON NORMALS: normocephalic and atraumatic HEAD & SCALP: normocephalic and atraumatic Resp: OTHER: Diminished air entry bilaterally Cardio: COMMON NORMALS: regular rate, regular rhythm, S1 normal heart sound present, S2 normal heart sound present, No gallops present (Cardio), No murmurs present (Cardio), No rub (Cardio) and Peripheral pulses 2+ throughout RATE: regular rate RHYTHM: regular rhythm HEART SOUNDS: S1 normal heart sound present and S2 normal heart sound present PERIPHERAL PULSES: Peripheral pulses 2+ throughout GI: COMMON NORMALS: Normal to inspection, nondistended, normoactive bowel sounds present, Soft to palpation, non-tender, No hepatosplenomegaly present and no masses AUSCULTATION: Yes normoactive bowel sounds PALPATION: Yes Soft to palpation and Yes No hepatosplenomegaly present RECTAL EXAM: deferred Extremity: COMMON NORMALS: no clubbing, cyanosis or edema and no pedal edema Neuro: COMMON NORMALS: patient oriented x3 Data : 03/27/21 06:42 03/27/21 06:42 Micro: Microbiology 03/25/21 17:49 Gram Stain - Final Sputum - Expectorated Sputum Sputum Culture - Preliminary 03/25/21 10:53 Blood Culture - Preliminary Blood NEGATIVE TO DATE 03/25/21 10:20 MRSA Culture - Final Nose 03/25/21 10:57 Blood Culture - Preliminary Blood NEGATIVE TO DATE A&P Assessment and plan (1) Acute and chronic respiratory failure: -History of COPD, 2 L, history of chronic respiratory failure -Immunocompromise state with malignancy -CT angiogram of the chest no pulmonary embolism, patchy bilateral airspace opacities greater in the left lower lobe, emphysematous changes, small left pleural effusion -COVID-19 pneumonia, COPD exacerbation, possible underlying secondary bacterial pneumonia Plan: -De-escalate antibiotics to Levaquin -Decadron day 6 of 10 -Remdesivir day 5 of 5 -Monitor respiratory status closely -Continue DuoNeb, budesonide -Oxygen therapy -Follow blood cultures, sputum cultures, urine bacterial antigens -BNP elevated, creatinine 1.2, hold off on Lasix -Lovenox for DVT prophylaxis -Patient is DNR/DNI Hyperkalemia, resolved Deconditioning, weakness, will require [facility] placement Hypothyroidism : Continue levothyroxine Hypertension, continue home medications Working on [facility] placement Status: Acute (2) Pneumonia: Status: Acute (3) Lung cancer metastatic to bone: Status: Acute (4) Neuroendocrine neoplasm of lung: Status: Acute (5) Chronic respiratory failure with hypoxia: Status: Acute (6) COPD (chronic obstructive pulmonary disease): Status: Acute (7) Pneumonia due to COVID-19 virus: Status: Acute (8) COPD exacerbation: Status: Acute Attestations Medical Necessity Statement*: Patient is currently awaiting safe placement to [facility]. Coding Level of Care Code Acute Maintenance Instructor for [facility] Fwd Exam Detailed Diagnoses Acute and chronic respiratory failure J96.20 Pneumonia J18.9 Lung cancer metastatic to bone C34.90; C79.51 Neuroendocrine neoplasm of lung D3A.8 Chronic respiratory failure with hypoxia J96.11 COPD (chronic obstructive pulmonary disease) J44.9 Pneumonia due to COVID-19 virus U07.1; J12.82 COPD exacerbation J44.1
[2021-03-27 17:19] LABS: Glucose Point of Care 133 mg/dL (70-110)
[2021-03-27] MEDS: morphine 4 mg/mL SDV 1 mL 2 MG IVP (17:42)
[2021-03-27] MEDS: enoxaparin 40 mg/0.4 mL Syringe SUBCUT (19:38)
[2021-03-27] MEDS: dexamethasone 10 mg/mL INJ 6 MG IVP (20:34)
[2021-03-27] MEDS: atorvastatin 40 mg Tablet 20 MG PO (20:35)
[2021-03-27] MEDS: famotidine 20 mg Tablet 40 MG PO (20:36)
[2021-03-27 23:53] LABS: Glucose Point of Care 194 mg/dL (70-110)
[2021-03-28] VITALS (9 sets, daily range): BP systolic 103–141; BP diastolic 65–70; PULSE 69–86; RESP 18–20; TEMP 36.6–36.7; O2SAT 87–98
[2021-03-28] MEDS: oxyCODONE-APAP 5-325 mg Tablet PO ×2 (01:23→09:25)
[2021-03-28] MEDS: levoFLOXacin 750 mg Tablet PO (05:19)
[2021-03-28] MEDS: cholecalciferol (vitamin D3) 1,000 unit Tablet 1000 UNIT PO (05:19)
[2021-03-28] MEDS: levothyroxine 75 mcg Tablet PO (05:19)
[2021-03-28] MEDS: metoprolol succinate ER (24 HR) 100 mg Tablet PO (05:19)
[2021-03-28] MEDS: pantoprazole DR 40 mg Tablet PO (05:20)
[2021-03-28] MEDS: amlodipine 10 mg Tablet PO (05:20)
[2021-03-28 05:21] LABS: Basophils % 0.2 %; Eosinophils % 0.1 %; Hematocrit 33.4 % (37.0-47.0); Hemoglobin 10.1 g/dL (11.5-15.3); Lymphocytes # 0.9 10^3/uL (0.8-4.8); Lymphocytes % 10.4 %; Mean Corpuscular HGB Conc 30.2 g/dL (30.0-36.0); Mean Corpuscular Hemoglobin 27.1 pg (28.0-34.0); Mean Corpuscular Volume 89.5 fl (81-99); Monocytes # 0.2 10^3/uL (0.2-0.9); Monocytes % 2.6 %; Neutrophils # 7.38 10^3/uL (1.8-7.7); Neutrophils % 84.5 %; Nucleated Red Blood Cells % 0 %; Platelet Count 130 10^3/cmm (130-400); Red Blood Count 3.73 10^6/uL (4.1-5.3); Red Cell Distribution Width 16.2 % (12.1-15.1); White Blood Count 8.7 10^3/uL (4.0-10.0)
[2021-03-28 05:39] LABS: Alanine Aminotransferase 63 U/L (0-33); Albumin Level 3.1 g/dL (3.5-5.2); Alkaline Phosphatase 169 IU/L (35-105); Anion Gap 12.6 (5-19); Aspartate Amino Transferase 71 U/L (0-32); Blood Urea Nitrogen 27 mg/dL (8-23); Calcium 8.1 mg/dL (8.5-10.5); Carbon Dioxide 30 mmol/L (22-29); Chloride 99 mmol/L (98-107); Globulin 2.4 g/dL (1.3-4.6); Glucose 140 mg/dL (65-115); Magnesium 2.4 mg/dL (1.7-2.3); Osmolality Calculated 289 mOsm/kg (285-295); Phosphorus 3.9 mg/dL (2.5-4.5); Potassium 5.6 mmol/L (3.5-5.1); Sodium 136 mmol/L (136-145); Total Bilirubin 0.3 mg/dL (0.15-1.2); Total Protein 5.5 g/dL (6.6-8.7)
[2021-03-28 06:45] LABS: Glucose Point of Care 188 mg/dL (70-110)
[2021-03-28] MEDS: ipratropium-albuterol 3 mL Neb INHALATION ×2 (08:50→15:14)
[2021-03-28] MEDS: budesonide 0.5 mg/2 mL Neb INHALATION (08:50)
[2021-03-28] MEDS: hyDRALAzine 50 mg Tablet PO (09:25)
[2021-03-28] MEDS: zinc gluconate 50 mg Tablet PO (09:25)
[2021-03-28] MEDS: ascorbic acid 500 mg Tablet PO (09:25)
[2021-03-28] MEDS: polyethylene glycol 3350 Pkt 17 gm PO (09:27)
[2021-03-28 11:27] LABS: Glucose Point of Care 161 mg/dL (70-110)
--- NOTE | 2021-03-28 12:39 | PC.SOCIAL ---
IMM Updated Updated pt on IMM. No questions voiced. Provided pt a copy. Initialed, dated, & timed copy in chart.
--- NOTE | 2021-03-28 15:24 | PM.DCS ---
Discharge Providers Date of Admission: 03/19/21 17:32 Date of Discharge: March 28, 2021 Attending Provider at Admission: Naveed Camarillo MD Attending Provider at Discharge: Andrea Barrow MD Primary Care Provider: Dave Nowak Diagnoses at Discharge Discharge Diagnosis (1) Acute and chronic respiratory failure: Status: Acute (2) Pneumonia: Status: Acute (3) Lung cancer metastatic to bone: Status: Acute (4) Neuroendocrine neoplasm of lung: Status: Acute (5) Chronic respiratory failure with hypoxia: Status: Acute (6) COPD (chronic obstructive pulmonary disease): Status: Acute (7) Pneumonia due to COVID-19 virus: Status: Acute (8) COPD exacerbation: Status: Acute Reason for Visit Reason for Visit: Low o2 sent by Dr. Larios Hospital Course Hospital Course 76 year old female with a past medical history of mantle cell lymphoma, COPD on 2 L, history of metastatic neuroendocrine lung cancer with PET CT evidence of primary tumor in the medial left lower lobe, with malignant pleural effusion, multiple sites of metastatic involvement including metastatic hepatic disease, multiple sites of metastatic bone involvement, hypertension, CKD stage III, GERD, SANDHYA, multinodular goiter, history of pulmonary embolism, who presents to [facility] for shortness of breath. She was admitted for the management of acute on chronic hypoxic respiratory failure secondary to Covid pneumonia. She was managed as per Covid protocol, 5-day course of remdesivir was on steroids, empirically on antibiotics, diuretics as needed ,duo nebs incentive spirometer, flutter valve, and other conservative respiratory support measures,CTA chest: no pulmonary embolism, patchy bilateral airspace opacities greater in the left lower lobe, emphysematous changes, small left pleural effusion.Blood cultures were negative, sputum Gram stain and culture: Were satisfactory. x-ray chest monitoring was done. Inflammatory markers were trended. Patient responded well to above medical management and was discharged in stable condition to home.She will continue to follow with the primary care physician as an outpatient. Physical Exam Const: COMMON NORMALS: patient oriented x3 HENMT: COMMON NORMALS: normocephalic and atraumatic HEAD & SCALP: normocephalic and atraumatic Resp: COMMON NORMALS: normal respiratory effort EFFORT & INSPECTION: Yes able to speak in complete sentences and Yes symmetric chest movement Cardio: COMMON NORMALS: regular rate, regular rhythm, S1 normal heart sound present, S2 normal heart sound present, No gallops present (Cardio), No murmurs present (Cardio), No rub (Cardio) and Peripheral pulses 2+ throughout RATE: regular rate RHYTHM: regular rhythm HEART SOUNDS: S1 normal heart sound present and S2 normal heart sound present PERIPHERAL PULSES: Peripheral pulses 2+ throughout GI: COMMON NORMALS: Normal to inspection, nondistended, normoactive bowel sounds present, Soft to palpation, non-tender, No hepatosplenomegaly present and no masses AUSCULTATION: Yes normoactive bowel sounds PALPATION: Yes Soft to palpation and Yes No hepatosplenomegaly present RECTAL EXAM: deferred Extremity: COMMON NORMALS: no clubbing, cyanosis or edema and no pedal edema Neuro: COMMON NORMALS: patient oriented x3 Discharge Data Data Completed and Pending: Completed Studies During Hospitalization Category Date Time Status CT angio chest PE protcl [id number] Stat Cat Scan 03/19/21 17:[address] lumbar spine w o con* [id number] Routi ne Cat Scan 03/20/21 12:13 Completed XR chest 1V josh ble [id number] Routine Exams 03/25/21 09:36 Completed XR chest 1V josh ble [id number] Stat Exams 03/19/21 14:36 Completed Pending at discharge Category Date Time Status Blood Culture Sta t Lab 03/25/21 10:53 Results Sputum Culture an d Gram Stain Stat Lab 03/19/21 17:46 Uncollected Labs from last 24 hours 03/28/21 03/28/21 03/28/21 10:54 06:41 04:55 WBC RBC Hgb Hct MCV MCH MCHC RDW Plt Count MPV Neut % (Auto) Lymph % (Auto) [place] % (Auto) Eos % (Auto) Baso % (Auto) Neut # (Auto) Lymph # (Auto) [place] # (Auto) Eos # (Auto) Baso # (Auto) Nucleated RBC % (a uto) Nucleated RBCs # Sodium 136 Potassium 5.6 H Chloride 99 Carbon Dioxide 30 H Anion Gap 12.6 BUN 27 H Creatinine 1.1 H GFR Calculation Not Reportable Glucose 140 H POC Glucose 161 H 188 H Calculated Osmolal ity 289 Calcium 8.1 L Phosphorus 3.9 Magnesium 2.4 H Total Bilirubin 0.3 AST 71 H ALT 63 H Alkaline Phosphata se 169 H Total Protein 5.5 L Albumin 3.1 L Globulin 2.4 03/28/21 03/27/21 03/27/21 04:55 23:49 17:01 WBC 8.7 RBC 3.73 L Hgb 10.1 L Hct 33.4 L MCV 89.5 MCH 27.1 L MCHC 30.2 RDW 16.2 H Plt Count 130 MPV 12.0 H Neut % (Auto) 84.5 Lymph % (Auto) 10.4 [place] % (Auto) 2.6 Eos % (Auto) 0.1 Baso % (Auto) 0.2 Neut # (Auto) 7.38 Lymph # (Auto) 0.9 [place] # (Auto) 0.2 Eos # (Auto) 0.0 Baso # (Auto) 0.0 Nucleated RBC % (a uto) 0 Nucleated RBCs # 0.0 Sodium Potassium Chloride Carbon Dioxide Anion Gap BUN Creatinine GFR Calculation Glucose POC Glucose 194 H 133 H Calculated Osmolal ity Calcium Phosphorus Magnesium Total Bilirubin AST ALT Alkaline Phosphata se Total Protein Albumin Globulin Vitals: Last Vital Signs Temp 97.8 F 03/28/21 12:00 Pulse 86 03/28/21 12:00 Resp 18 03/28/21 12:00 BP 103/65 03/28/21 12:00 Pulse Ox 97 03/28/21 12:00 Discharge Plan Discharge Patient Disposition: Home Condition: Stable Prescriptions: Continued albuterol sulfate 90 mcg/actuation HFA aerosol inhaler 2 puff inhalation Q6H PRN (Reason: Shortness Of Breath) RF: 0 amlodipine 10 mg tablet 10 mg PO QAM RF: 0 azelastine 137 mcg (0.1 %) aerosol,spray 2 spray intranasal BID RF: 0 wheat dextrin [Benefiber Clear SF (dextrin)] 2 tsp PO QAM RF: 0 cholecalciferol (vitamin D3) 25 mcg (1,000 unit) capsule 25 mcg PO QAM RF: 0 famotidine 40 mg tablet 40 mg PO BEDTIME RF: 0 Glucosamine Complex-MSM Capsule 1 cap PO QAM RF: 0 hydralazine 50 mg tablet 50 mg PO BID RF: 0 levothyroxine 75 mcg tablet 75 mcg PO QAM RF: 0 losartan 50 mg tablet 50 mg PO BID RF: 0 metoprolol succinate 100 mg tablet extended release 24 hr 100 mg PO QAM RF: 0 nitroglycerin [Nitrostat] 0.4 mg tablet, sublingual 0.4 mg sublingual Q5M PRN (Reason: Chest Pain) RF: 0 pantoprazole 40 mg tablet,delayed release (DR/EC) 40 mg PO QAM RF: 0 simvastatin 10 mg tablet 10 mg PO BEDTIME RF: 0 polyethylene glycol 3350 [Miralax] 17 gram/dose powder 17 g PO DAILY PRN (Reason: Constipation) RF: 0 fexofenadine 180 mg Tablet 180 mg PO QAM RF: 0 Stiolto Respimat 2.5-2.5 mcg/actuation Mist 2 puff INHALATION QAM RF: 0 oxycodone-acetaminophen 5-325 mg tablet 1 - 2 tab PO Q6H PRN (Reason: Pain) RF: 0 Discontinued levofloxacin 500 mg tablet 500 mg PO DAILY RF: 0 Discharge Orders: Discharge Order (Routine); Ordered 03/28/21 Ordered By: Andrea Barrow Referrals: [facility] home services [Other] (You can reach out to this organization as one option to help assist with in home services to help with cooking, cleaning, etc.) [facility] [Other] (Here is a second option you can reach out to for assistance with in home care services for cooking, cleaning, etc.) [facility] [Other] (This is the direct line if you would rather work on doing the initial intake process yourself to see if you will qualify for in home care services.) [facility] [Outside] Dave Nowak [Primary Care Provider] - 04/13/21 4:20 pm Discharge Diet: Regular Discharge Activity: Increase activity as tolerated Patient Instructions: Viral Pneumonia (DC), COPD (Chronic Obstructive Pulmonary Disease) (DC), Chronic Respiratory Failure (DC), Opioid Safety Discharge Attestations Time Spent in Discharge Care*: less than 30 min Specific Discharge Activities: educating patient, educating and/or supporting family/caregiver, discussing with pcp/other providers, discussing with family independence case manager/social workers/dc planners, documenting/other paperwork and evaluating patient/reviewing data Status at Discharge: Cognitive status at discharge: cognitively intact, Behavioral status at discharge: cooperative, Functional status at discharge: independent ambulation Overall status at discharge: patient is progressing back to baseline Quality Metrics Clinical Quality Measures During this hospital stay, did patient experience: None Coding Level of Care Code Acute Chg FW DC note Exam Detailed Diagnoses Acute and chronic respiratory failure J96.20 Pneumonia J18.9 Lung cancer metastatic to bone C34.90; C79.51 Neuroendocrine neoplasm of lung D3A.8 Chronic respiratory failure with hypoxia J96.11 COPD (chronic obstructive pulmonary disease) J44.9 Pneumonia due to COVID-19 virus U07.1; J12.82 COPD exacerbation J44.1
--- NOTE | 2021-03-30 09:37 | PC.SOCIAL ---
during follow up call pt expresses she can't find her discharge paperwork for the in home services numbers. pt doesn't feel like calling today. nurse will call back on friday to assist pt will numbers for in home services
--- NOTE | 2021-04-03 11:35 | PC.SOCIAL ---
followed up with pt. she reports she has a company coming in to help her at this time. they have came to her home twice now. they are doing nursing and PT. pt denies further assistance or needs at this time.
== END 2021-03-28 16:45 | disposition home health service (06) | DRG 177 ==
LOC: ER 17:25 → MEDSURG 19:09
PROVIDERS: Admitting Provider Family Medicine; Emergency Provider Family Medicine; PCP Physician Assistant Medical; Visit Provider Internal Medicine
DX: U07.1 COVID-19 (principal); J12.82 Pneumonia due to coronavirus disease 2019; J96.21 Acute and chronic respiratory failure with hypoxia; J15.7 Pneumonia due to Mycoplasma pneumoniae; C7A.8 Other malignant neuroendocrine tumors; C7B.8 Other secondary neuroendocrine tumors; D84.9 Immunodeficiency, unspecified; J44.1 Chronic obstructive pulmonary disease with (acute) exacerbation; Z85.72 Personal history of non-Hodgkin lymphomas; Z99.81 Dependence on supplemental oxygen; K21.9 Gastro-esophageal reflux disease without esophagitis; I12.9 Hypertensive chronic kidney disease with stage 1 through stage 4 chronic kidney disease, or unspecified chronic kidney disease; N18.30 Chronic kidney disease, stage 3 unspecified; E89.0 Postprocedural hypothyroidism; Z95.828 Presence of other vascular implants and grafts; Z87.891 Personal history of nicotine dependence; G47.33 Obstructive sleep apnea (adult) (pediatric); Z86.711 Personal history of pulmonary embolism; Z66 Do not resuscitate; Z79.891 Long term (current) use of opiate analgesic; Z79.51 Long term (current) use of inhaled steroids; E87.5 Hyperkalemia
CPT/HCPCS: 36415; 36416; 36600; 71045; 71275; 72131; 80053; 80202; 82550; 82803; 82962; 83605; 83735; 83880; 84100; 84145; 84443; 84484; 85025; 85378; 85730; 86140; 87040; 87070; 87205; 87426; 87635; 87641; 87804; 93005; 94640; 94660; 94664; 96365; 96367; 96372; 96375; 97110; 97161; 97165; 97530; 99285; J0456; J0692; J1100; J1650; J1815; J1940; J1956; J2270; J3370; J7050; J7626; Q9967

== ENCOUNTER 2021-04-10 07:55 | Outpatient (CLI) | payer MEDICARE, MEDICAID, SELFPAY ==
[2021-04-10] MEDS: alteplase 1 mg/mL SDV 2 mL 2 MG IV (08:40)
[2021-04-10 09:37] LABS: Basophils % 0.4 %; Eosinophils # 0.1 10^3/uL (0.0-0.8); Eosinophils % 2.2 %; Hematocrit 30.6 % (37.0-47.0); Hemoglobin 9.4 g/dL (11.5-15.3); Lymphocytes % 18.9 %; Mean Corpuscular HGB Conc 30.7 g/dL (30.0-36.0); Mean Corpuscular Hemoglobin 27.6 pg (28.0-34.0); Mean Corpuscular Volume 89.7 fl (81-99); Mean Platelet Volume 11.7 fL (7.4-10.4); Monocytes # 0.7 10^3/uL (0.2-0.9); Monocytes % 12.4 %; Neutrophils # 3.42 10^3/uL (1.8-7.7); Nucleated Red Blood Cells % 0 %; Platelet Count 158 10^3/cmm (130-400); Red Blood Count 3.41 10^6/uL (4.1-5.3); Red Cell Distribution Width 18.8 % (12.1-15.1); White Blood Count 5.3 10^3/uL (4.0-10.0)
[2021-04-10 09:56] LABS: Alanine Aminotransferase 60 U/L (0-33); Albumin Level 3.2 g/dL (3.5-5.2); Alkaline Phosphatase 232 IU/L (35-105); Anion Gap 14.6 (5-19); Aspartate Amino Transferase 78 U/L (0-32); Blood Urea Nitrogen 13 mg/dL (8-23); Calcium 7.9 mg/dL (8.5-10.5); Carbon Dioxide 24 mmol/L (22-29); Chloride 102 mmol/L (98-107); Globulin 2.3 g/dL (1.3-4.6); Glucose 91 mg/dL (65-115); Osmolality Calculated 282 mOsm/kg (285-295); Potassium 4.6 mmol/L (3.5-5.1); Sodium 136 mmol/L (136-145); Total Bilirubin 0.5 mg/dL (0.15-1.2); Total Protein 5.5 g/dL (6.6-8.7)
[2021-04-10] MEDS: sodium chloride 0.9% 250 ML 75 ML IV (10:50)
[2021-04-10] MEDS: ondansetron 2 mg/ML SDV 2 mL 8 MG IV (10:50)
[2021-04-10] MEDS: denosumab 120 mg SDV SUBCUT (10:52)
[2021-04-10 11:39] LABS: Thyroid Stimulating Hormone 2.99 uIU/mL (0.27-4.20)
--- NOTE | 2021-04-14 08:59 | ONC FU_ITS ---
Dr. Larios Patient Follow-Up Note Patient: Shahnaz Harper Unit #: [id number]: [id number] Dicatated By: Juan Luis Larios M.D.Date of Visit:Apr 10, 2021 Onc Med Follow-up/Prog Note Chief Complaint: Mantle cell lymphoma/llung cancer. History of Present Illness: This is a 76 year-old woman with a history of mantle cell lymphoma. In January 2021 she was found to have metastatic neuroendocrine lung cancer. She has COPD. She had presented in January with left lower back pain and she was found on CT to have a left pleural effusion. She was then seen at the [facility] pulmonary clinic and she underwent thoracentesis on 01/29/2021. The pleural fluid cytology showed malignant cells which were positive for CK7, TTF-1, and MOC-31. They were negative for cyclin D1, CK20, Jorge Luis-EP4, calretinin, CD20, and CD3. On further analysis, there was positive staining for synaptophysin with negative p40 and Napsin, supporting a neuroendocrine carcinoma. 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 She then had further staging with PET/CT on 02/24/2021. That study showed an FDG avid solid lesion in the medial left lower lobe measuring 3.4 x 3.2 cm, SUV 12.4, strongly consistent with malignancy. Multiple FDG positive left hemithorax pleural plaques are also consistent with malignancy. Malignant nodes were present in the left hilum and prevascular territories. There was evidence of metastatic disease in the right and left hepatic lobes and there was malignant adenopathy in the retrocaval and peripancreatic regions. Also noted were multiple sites of osseous metastatic disease. She was referred to Dr. Santillan for consideration of chest tube placement in the left pleural cavity, but he recommended against it because the effusion appeared to be loculated. In the meantime, she had further evaluation with next generation sequencing study. 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 Multiple other mutations were noted, none of which were actionable. On 03/05/2020 when she was seen for a follow-up visit to discuss further treatment. She opted to proceed with a trial of combined chemotherapy/immunotherapy. Based on the neuroendocrine differentiation, I recommended carboplatin/etoposide in combination with atezolizumab. She then underwent placement of Port-A-Cath venous access device on 03/14/2021. On 03/19/2021 she was admitted to the hospital with acute respiratory failure in association with COVID-19 virus infection and pneumonia. She was discharged home on 03/28/2021. Her medical history is otherwise significant for mantle cell lymphoma, initially diagnosed in May 2009. She was treated with R- hyperCVAD chemotherapy with good clinical response. She completed 6 cycles of treatment as of September 2009. A PET/CT at that point showed a residual 3 cm mass at the celiac access as well as 4 residual cystic masses within the spleen, but these all showed just low-grade FDG uptake. She was then followed on expectant management. During her followup she continued to have a mild thrombocytopenia, but there was no evidence of recurrence/progression of the lymphoma. Her other medical illnesses include COPD, hypertension, chronic kidney disease, GERD, multinodular goiter, obstructive sleep apnea, and degenerative arthritis. She has a history of pulmonary embolism. She underwent right hemithyroidectomy in 2010. She had several polyps removed by colonoscopy in June 2012. She had a pretty severe episode of pneumonia in September 2012. She had a repeat EGD and colonoscopy in January 2019. The only significant finding apparently was gastritis. She had smoked in the past, but she quit in 2008. INTERIM HISTORY: She is seen now for a follow-up visit. She still pretty weak following her hospitalization last month, but she has continued to show gradual recovery. She is up and around. ECOG score is 2. Appetite is variable. She says she is not eating a lot. She does not have fever or night sweats. She has short of breath with activity. She says her breathing is okay at rest, but she is on continuous oxygen. She is coughing up clear sputum. She has not been having chest pain. She occasionally has nausea. She says she always has acid reflux. Bowel and bladder function have been okay. She has generalized aching in her joints and she also has pain in the mid to lower back. She does not complain of headache or dizziness. She has some numbness in her fingers. Medications: Charity 180 mg - Take 1 Tablet Oral daily, AmLODIPine Besylate 1 (10 mg) Tablet Oral daily, Benefiber 2 tsp Powder Oral every am, Cholecalciferol 1 (1000 Units) Capsule Oral every am, Famotidine 1 Tablet (of 40 mg) Oral daily, Glucosamine Chondr 1500 Complx 1 Capsule Oral daily, HydrALAZINE HCl 1 (50 mg) Tablet Oral b.i.d., Losartan Potassium 1 (50 mg) Tablet Oral b.i.d., Metoprolol Succinate ER 1 (50 mg) Tablet SR 24 HR Oral every am, Nitroglycerin Tablet, sublingual Sublingual PRN, oxygen 1 (2 L) Aerosol at bedtime, Polyethylene Glycol 1 Packet Powder daily, Protonix 1 (40 mg) Tablet, enteric coated Oral daily, Spiriva Respimat 1 (1.25 mcg/act) Aerosol, solution Inhalation daily, Synthroid 1 (75 mcg) Tablet Oral daily, Xopenex Nebulization solution Inhalation PRN, Zocor 1 (10 mg) Tablet Oral daily Allergies: PENICILLIN Vital Signs: Performed on Apr 10, 2021 10:02 Height - 64.00 in Weight - 184.0 lbs (LOW) BSA - 1.89 sq.m BMI - 31.58 (HIGH) Temperature - 97.4 F (LOW) Pulse - 76 /min Respiration - 22 /min BP - 121/73 mm(hg) O2 Sat - 93 % (LOW) Pain - 4 Fatigue - 5 Physical Examination: Constitutional - She appears somewhat weak generally, and she appears short of breath with effort, Eyes - Sclerae nonicteric. Conjunctivae clear, ENMT - No lesions noted in the oral cavity, Hematologic/Lymphatic - No cervical, clavicular, or axillary adenopathy, Respiratory - Lungs show some decrease in air movement on the left, Cardiovascular - Heart rhythm is regular. There is no murmur, gallop, or rub noted, Abdomen - Mildly distended. Liver and spleen are not enlarged. There is no abdominal mass or ascites noted and there is no inguinal adenopathy, Extremities - No edema, Neurologic - No focal neurologic deficits. Lab/Imaging: Test performed on Apr 10, 2021 09:18 Sodium 136 mmol/L Potassium 4.6 mmol/L Chloride 102 mmol/L CO2 24 mmol/L Anion Gap 14.6 BUN 13 mg/dL Creatinine 1.1 mg/dL Cr Clearance (Est) 59.12 mL/min Glucose 91 mg/dL Osmolality - Calculated 282 mOsm/kg Calcium 7.9 mg/dL Protein, Total 5.5 g/dL Albumin 3.2 g/dL Globulin 2.3 g/dL Bilirubin, Total 0.5 mg/dL ALT (SGPT) 60 U/L AST (SGOT) 78 U/L Alkaline Phosphatase 232 IU/L WBC 5.3 10 3/uL RBC 3.41 10 6/uL HGB 9.4 g/dL HCT 30.6 % MCV 89.7 fl MCH 27.6 pg MCHC 30.7 g/dL RDW 18.8 % Platelet Count 158 10 3/cmm MPV 11.7 fL Neutrophils 3.42 10 3/uL Lymphocytes 1.0 10 3/uL Monocytes 0.7 10 3/uL Eosinophils 0.1 10 3/uL Basophils 0.0 10 3/uL Neutrophil % 64.0 % Lymphocyte % 18.9 % Monocyte % 12.4 % Eosinophil % 2.2 % Basophils % 0.4 % NRBC % 0 % Problem List: 1. Metastatic neuroendocrine lung cancer with PET/CT evidence of primary tumor in the medial left lower lobe, TNM stage IVB (T2a, N2, M1c). There was associated malignant pleural effusion and there were multiple sites of metastatic involvement by PET/CT, including multiple hepatic metastases and multiple sites of metastatic bone involvement. 2. She has a history of mantle cell lymphoma with bulky retroperitoneal adenopathy and involvement in the spleen at initial diagnosis in May 2009. She has been in sustained remission following treatment with 6 cycles of B-kxsde-GIPL chemotherapy, which she completed in September 2009. 3. She has had a mild to moderately severe thrombocytopenia following completion of the chemotherapy. 4. Hypertension. 5. Stage III chronic kidney disease. 6. GERD. 7. COPD. 8. Obstructive sleep apnea. 9. Degenerative arthritis. 10. Multinodular goiter. 11. History of pulmonary embolism. Problems Addressed with this Encounter and Plan: 1. Patient with metastatic neuroendocrine lung cancer with PET/CT evidence of primary tumor in the medial left lower lobe, TNM stage IVB (T2a, N2, M1c). There was associated malignant pleural effusion and there were multiple sites of metastatic involvement by PET/CT, including multiple hepatic metastases and multiple sites of metastatic bone involvement. She has opted to undergo trial of systemic therapy with carboplatin/etoposide chemotherapy in combination with atezolizumab. Her treatment has been delayed due to a hospitalization for COVID-19 virus infection/pneumonia with acute respiratory failure. She has been showing gradual recovery from that illness, and she will now begin her 1st cycle of chemotherapy/immunotherapy. Her blood counts will be monitored weekly with cycles repeated at 3-week intervals. 2. She has multiple sites of metastatic bone involvement by PET/CT, and she also will require supportive therapy with denosumab. Signed By: Juan Luis Larios M.D. <<Signature on File>>
== END 2021-04-10 07:56 | disposition home or self-care (01) ==
PROVIDERS: PCP Family Medicine; Visit Provider Internal Medicine Medical Oncology
DX: Z51.12 Encounter for antineoplastic immunotherapy (principal); Z51.11 Encounter for antineoplastic chemotherapy; C7A.090 Malignant carcinoid tumor of the bronchus and lung; C7B.03 Secondary carcinoid tumors of bone; C7B.02 Secondary carcinoid tumors of liver; C7B.09 Secondary carcinoid tumors of other sites; Z85.72 Personal history of non-Hodgkin lymphomas; D69.59 Other secondary thrombocytopenia; T45.1X5A Adverse effect of antineoplastic and immunosuppressive drugs, initial encounter; I10 Essential (primary) hypertension; N18.30 Chronic kidney disease, stage 3 unspecified; K21.9 Gastro-esophageal reflux disease without esophagitis; J44.9 Chronic obstructive pulmonary disease, unspecified; G47.33 Obstructive sleep apnea (adult) (pediatric); M19.90 Unspecified osteoarthritis, unspecified site; E04.2 Nontoxic multinodular goiter; Z86.711 Personal history of pulmonary embolism; Z79.899 Other long term (current) drug therapy; Z92.21 Personal history of antineoplastic chemotherapy; Z92.3 Personal history of irradiation
CPT/HCPCS: 36593; 80053; 84443; 85025; 96367; 96372; 96375; 96413; 96417; 99215; J0897; J1100; J2405; J2997; J7040; J7050; J9022; J9045; J9181

== ENCOUNTER 2021-05-01 06:23 | Outpatient (RCR) | payer MEDICARE, MEDICAID, SELFPAY ==
[2021-04-11] MEDS: sodium chloride 0.9% 250 ML 75 ML IV (13:14)
[2021-04-11] MEDS: ondansetron 2 mg/ML SDV 2 mL 8 MG IV (13:15)
[2021-04-12] MEDS: palonosetron 0.25 mg/5 mL SDV IVP (10:25)
[2021-04-12] MEDS: sodium chloride 0.9% 250 ML 75 ML IV (10:25)
[2021-04-24 14:00] LABS: Hematocrit 22.4 % (37.0-47.0); Hemoglobin 6.9 g/dL (11.5-15.3); Mean Corpuscular HGB Conc 30.8 g/dL (30.0-36.0); Mean Corpuscular Hemoglobin 27.3 pg (28.0-34.0); Mean Corpuscular Volume 88.5 fl (81-99); Mean Platelet Volume 12.3 fL (7.4-10.4); Platelet Count 49 10^3/cmm (130-400); Red Blood Count 2.53 10^6/uL (4.1-5.3); Red Cell Distribution Width 19.2 % (12.1-15.1); White Blood Count 1.4 10^3/uL (4.0-10.0)
[2021-04-24 14:13] LABS: Alanine Aminotransferase 19 U/L (0-33); Albumin Level 3.2 g/dL (3.5-5.2); Alkaline Phosphatase 166 IU/L (35-105); Anion Gap 16.1 (5-19); Aspartate Amino Transferase 17 U/L (0-32); Blood Urea Nitrogen 12 mg/dL (8-23); Calcium 6.5 mg/dL (8.5-10.5); Carbon Dioxide 21 mmol/L (22-29); Chloride 103 mmol/L (98-107); Globulin 2.2 g/dL (1.3-4.6); Glucose 88 mg/dL (65-115); Osmolality Calculated 281 mOsm/kg (285-295); Potassium 4.1 mmol/L (3.5-5.1); Sodium 136 mmol/L (136-145); Total Bilirubin 0.7 mg/dL (0.15-1.2); Total Protein 5.4 g/dL (6.6-8.7)
[2021-04-24 14:43] LABS: Eosinophils 1 %; Lymphocytes 66 %; Lymphocytes Absolute 1.1 10^3/cmm (1.2-3.4); Monocytes Absolute 0.2 10^3/cmm (0.1-0.6); Platelet Estimate Decreased (Normal); Segmented Neutrophils 3 %; Total Cells Counted 100 (0-100)
[2021-04-25] MEDS: diphenhydrAMINE 25 mg Capsule PO (09:30)
[2021-04-25] MEDS: acetaminophen 325 mg Tablet 650 MG PO (09:30)
[2021-04-25] MEDS: sodium chloride 0.9% 250 ML 999 ML IV (09:30)
[2021-04-25] MEDS: alteplase 1 mg/mL SDV 2 mL 2 MG IV (09:45)
[2021-04-25 10:52] LABS: Alanine Aminotransferase 15 U/L (0-33); Albumin Level 2.8 g/dL (3.5-5.2); Alkaline Phosphatase 147 IU/L (35-105); Anion Gap 13.8 (5-19); Aspartate Amino Transferase 15 U/L (0-32); Blood Urea Nitrogen 13 mg/dL (8-23); Calcium 6.5 mg/dL (8.5-10.5); Carbon Dioxide 22 mmol/L (22-29); Chloride 105 mmol/L (98-107); Glucose 97 mg/dL (65-115); Osmolality Calculated 284 mOsm/kg (285-295); Potassium 3.8 mmol/L (3.5-5.1); Sodium 137 mmol/L (136-145); Total Bilirubin 0.5 mg/dL (0.15-1.2); Total Protein 4.8 g/dL (6.6-8.7)
[2021-04-25] MEDS: FUROsemide 10 mg/mL SDV 2mL 20 MG IV (12:20)
[2021-04-25 12:30] VITALS: BP 93/57; PULSE 63; RESP 18; TEMP 36.9; O2SAT 98
[2021-04-26 11:04] LABS: Basophils % 0.8 %; Eosinophils # 0.1 10^3/uL (0.0-0.8); Eosinophils % 1.9 %; Hematocrit 27.2 % (37.0-47.0); Hemoglobin 8.8 g/dL (11.5-15.3); Lymphocytes # 1.2 10^3/uL (0.8-4.8); Lymphocytes % 33.2 %; Mean Corpuscular HGB Conc 32.4 g/dL (30.0-36.0); Mean Corpuscular Hemoglobin 28.1 pg (28.0-34.0); Mean Corpuscular Volume 86.9 fl (81-99); Mean Platelet Volume 13.4 fL (7.4-10.4); Monocytes # 1.1 10^3/uL (0.2-0.9); Monocytes % 29.9 %; Neutrophils # 1.08 10^3/uL (1.8-7.7); Neutrophils % 29.3 %; Nucleated Red Blood Cells # 0.1 /100WBC; Nucleated Red Blood Cells % 1.9 %; Platelet Count 65 10^3/cmm (130-400); Red Blood Count 3.13 10^6/uL (4.1-5.3); Red Cell Distribution Width 19.2 % (12.1-15.1); White Blood Count 3.7 10^3/uL (4.0-10.0)
[2021-04-26 11:45] LABS: Slide Review Slide Review Perform
[2021-05-01 09:06] LABS: Hematocrit 25.8 % (37.0-47.0); Hemoglobin 8.7 g/dL (11.5-15.3); Mean Corpuscular HGB Conc 33.7 g/dL (30.0-36.0); Mean Corpuscular Hemoglobin 31.5 pg (28.0-34.0); Mean Corpuscular Volume 93.5 fl (81-99); Mean Platelet Volume 13.2 fL (7.4-10.4); Platelet Count 104 10^3/cmm (130-400); Red Blood Count 2.76 10^6/uL (4.1-5.3); Red Cell Distribution Width 20.4 % (12.1-15.1); White Blood Count 11.9 10^3/uL (4.0-10.0)
[2021-05-01 09:12] LABS: Alanine Aminotransferase 11 U/L (0-33); Alkaline Phosphatase 276 IU/L (35-105); Anion Gap 15.2 (5-19); Aspartate Amino Transferase 20 U/L (0-32); Blood Urea Nitrogen 13 mg/dL (8-23); Calcium 6.9 mg/dL (8.5-10.5); Carbon Dioxide 25 mmol/L (22-29); Chloride 105 mmol/L (98-107); Globulin 2.2 g/dL (1.3-4.6); Glucose 95 mg/dL (65-115); Osmolality Calculated 292 mOsm/kg (285-295); Potassium 4.2 mmol/L (3.5-5.1); Sodium 141 mmol/L (136-145); Total Bilirubin 0.5 mg/dL (0.15-1.2); Total Protein 5.2 g/dL (6.6-8.7)
[2021-05-01 09:37] LABS: Slide Review Slide Review Perform
[2021-05-01 09:40] LABS: Absolute Neutrophil 6.4 10^3/cmm (1.4-6.5); Anisocytosis 1+; Band Neutrophils Absolute 2.4 10^3/cmm (0.0-1.2); Eosinophils 0 %; Lymphocytes 17 %; Lymphocytes Absolute 2.1 10^3/cmm (1.2-3.4); Monocytes Absolute 1.5 10^3/cmm (0.1-0.6); Platelet Estimate Decreased (Normal); Poikilocytosis Trace; Segmented Neutrophils 34 %; Stomatocytes Trace; Total Cells Counted 100 (0-100)
== END 2021-05-04 23:59 | disposition home or self-care (01) ==
LOC: ONCMED 06:23
PROVIDERS: Internal Medicine Medical Oncology; PCP Family Medicine; Visit Provider Nurse Practitioner Family
DX: Z51.11 Encounter for antineoplastic chemotherapy (principal); C34.32 Malignant neoplasm of lower lobe, left bronchus or lung; J91.0 Malignant pleural effusion; C78.7 Secondary malignant neoplasm of liver and intrahepatic bile duct; C79.51 Secondary malignant neoplasm of bone; C83.18 Mantle cell lymphoma, lymph nodes of multiple sites; D69.6 Thrombocytopenia, unspecified; I10 Essential (primary) hypertension; N18.30 Chronic kidney disease, stage 3 unspecified; K21.9 Gastro-esophageal reflux disease without esophagitis; J44.9 Chronic obstructive pulmonary disease, unspecified; M19.90 Unspecified osteoarthritis, unspecified site; E04.2 Nontoxic multinodular goiter; Z86.711 Personal history of pulmonary embolism; Z79.899 Other long term (current) drug therapy
CPT/HCPCS: 36430; 36591; 36593; 80053; 85007; 85025; 86850; 86900; 86920; 96367; 96368; 96372; 96374; 96375; 96413; 99214; 99215; J1100; J1940; J2405; J2469; J2997; J7040; J7050; J9181; P9040; Q5101

== ENCOUNTER 2021-05-31 06:30 | Outpatient (RCR) | payer MEDICARE, MEDICAID, SELFPAY ==
[2021-05-08 09:55] LABS: Basophils # 0.1 10^3/uL (0.0-0.1); Eosinophils % 0.3 %; Hematocrit 24.8 % (37.0-47.0); Hemoglobin 8.3 g/dL (11.5-15.3); Lymphocytes # 1.2 10^3/uL (0.8-4.8); Lymphocytes % 18.9 %; Mean Corpuscular HGB Conc 33.5 g/dL (30.0-36.0); Mean Corpuscular Hemoglobin 32.4 pg (28.0-34.0); Mean Corpuscular Volume 96.9 fl (81-99); Mean Platelet Volume 11.4 fL (7.4-10.4); Monocytes # 0.8 10^3/uL (0.2-0.9); Monocytes % 11.9 %; Neutrophils # 4.14 10^3/uL (1.8-7.7); Neutrophils % 65.8 %; Nucleated Red Blood Cells % 0 %; Platelet Count 190 10^3/cmm (130-400); Red Blood Count 2.56 10^6/uL (4.1-5.3); Red Cell Distribution Width 23.1 % (12.1-15.1); White Blood Count 6.3 10^3/uL (4.0-10.0)
[2021-05-08 10:20] LABS: Alanine Aminotransferase 11 U/L (0-33); Albumin Level 3.2 g/dL (3.5-5.2); Alkaline Phosphatase 318 IU/L (35-105); Aspartate Amino Transferase 20 U/L (0-32); Blood Urea Nitrogen 7 mg/dL (8-23); Calcium 7.9 mg/dL (8.5-10.5); Carbon Dioxide 24 mmol/L (22-29); Chloride 105 mmol/L (98-107); Globulin 2.6 g/dL (1.3-4.6); Glucose 96 mg/dL (65-115); Osmolality Calculated 284 mOsm/kg (285-295); Sodium 138 mmol/L (136-145); Total Bilirubin 0.5 mg/dL (0.15-1.2); Total Protein 5.8 g/dL (6.6-8.7)
[2021-05-08] MEDS: sodium chloride 0.9% 250 ML 75 ML IV (11:00)
[2021-05-08] MEDS: ondansetron 2 mg/ML SDV 2 mL 8 MG IV (11:00)
[2021-05-09] MEDS: ondansetron 2 mg/ML SDV 2 mL 8 MG IV (10:20)
[2021-05-09] MEDS: sodium chloride 0.9% 250 ML 75 ML IV (10:25)
[2021-05-11] VITALS (11 sets, daily range): BP systolic 110–149; BP diastolic 52–82; PULSE 62–84; RESP 18–183; TEMP 36.1–37.6; O2SAT 96–99; BMI 18.8
[2021-05-11] MEDS: palonosetron 0.25 mg/5 mL SDV IVP (10:27)
[2021-05-11] MEDS: sodium chloride 0.9% 250 ML 75 ML IV (10:28)
[2021-05-11 10:33] LABS: Basophils % 0.4 %; Eosinophils % 0.2 %; Hematocrit 23.3 % (37.0-47.0); Hemoglobin 7.7 g/dL (11.5-15.3); Lymphocytes # 0.9 10^3/uL (0.8-4.8); Lymphocytes % 19.7 %; Mean Corpuscular Hemoglobin 33.2 pg (28.0-34.0); Mean Corpuscular Volume 100.4 fl (81-99); Mean Platelet Volume 11.3 fL (7.4-10.4); Monocytes # 0.2 10^3/uL (0.2-0.9); Monocytes % 4.8 %; Neutrophils # 3.53 10^3/uL (1.8-7.7); Neutrophils % 73.9 %; Nucleated Red Blood Cells % 0 %; Platelet Count 156 10^3/cmm (130-400); Red Blood Count 2.32 10^6/uL (4.1-5.3); White Blood Count 4.8 10^3/uL (4.0-10.0)
[2021-05-11] MEDS: pegfilgrastim 6 mg/0.6 mL Kit (onpro) SUBCUT (11:18)
[2021-05-11] MEDS: diphenhydrAMINE 25 mg Capsule PO (13:46)
[2021-05-11] MEDS: acetaminophen 325 mg Tablet 650 MG PO (13:46)
[2021-05-11] MEDS: FUROsemide 10 mg/mL SDV 2mL 20 MG IVP (17:20)
--- NOTE | 2021-05-12 10:16 | ONC FU_ITS ---
Dr. Larios Patient Follow-Up Note Patient: Shahnaz Harper Unit #: [id number]: 1945 Dicatated By: Juan Luis Larios M.D.Date of Visit:May 08, 2021 Onc Med Follow-up/Prog Note Chief Complaint: Mantle cell lymphoma/llung cancer. History of Present Illness: This is a 76 year-old woman with a history of mantle cell lymphoma. In January 2021 she was found to have metastatic neuroendocrine lung cancer. She has COPD. She had presented in January with left lower back pain and she was found on CT to have a left pleural effusion. She was then seen at the [facility] pulmonary clinic and she underwent thoracentesis on 01/29/2021. The pleural fluid cytology showed malignant cells which were positive for CK7, TTF-1, and MOC-31. They were negative for cyclin D1, CK20, Jorge Luis-EP4, calretinin, CD20, and CD3. On further analysis, there was positive staining for synaptophysin with negative p40 and Napsin, supporting a neuroendocrine carcinoma. 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 The sample was insufficient for assessment of PD-L1 expression. She had further staging with PET/CT on 02/24/2021. That study showed an FDG avid solid lesion in the medial left lower lobe measuring 3.4 x 3.2 cm, SUV 12.4, strongly consistent with malignancy. Multiple FDG positive left hemithorax pleural plaques are also consistent with malignancy. Malignant nodes were present in the left hilum and prevascular territories. There was evidence of metastatic disease in the right and left hepatic lobes and there was malignant adenopathy in the retrocaval and peripancreatic regions. Also noted were multiple sites of osseous metastatic disease. She was referred to Dr. Santillan for consideration of chest tube placement in the left pleural cavity, but he recommended against it because the effusion appeared to be loculated. In the meantime, she had further evaluation with next generation sequencing study. 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 Multiple other mutations were noted, none of which were actionable. On 03/05/2020 when she was seen for a follow-up visit to discuss further treatment. She opted to proceed with a trial of combined chemotherapy/immunotherapy. Based on the neuroendocrine differentiation, I recommended carboplatin/etoposide in combination with atezolizumab. She then underwent placement of Port-A-Cath venous access device on 03/14/2021. Her further treatment was then delayed due to COVID 19 virus infection/pneumonia, for she was admitted to the hospital with respiratory failure on 03/19/2021. She was discharged home on 03/28/2021. Her medical history is otherwise significant for mantle cell lymphoma, initially diagnosed in May 2009. She was treated with R- hyperCVAD chemotherapy with good clinical response. She completed 6 cycles of treatment as of September 2009. A PET/CT at that point showed a residual 3 cm mass at the celiac access as well as 4 residual cystic masses within the spleen, but these all showed just low-grade FDG uptake. She was then followed on expectant management. During her followup she continued to have a mild thrombocytopenia, but there was no evidence of recurrence/progression of the lymphoma. Her other medical illnesses include COPD, hypertension, chronic kidney disease, GERD, multinodular goiter, obstructive sleep apnea, and degenerative arthritis. She has a history of pulmonary embolism. She underwent right hemithyroidectomy in 2010. She had several polyps removed by colonoscopy in June 2012. She had a pretty severe episode of pneumonia in September 2012. She had a repeat EGD and colonoscopy in January 2019. The only significant finding apparently was gastritis. She had smoked in the past, but she quit in 2008. INTERIM HISTORY: She began cycle 1 of carboplatin/etopside/acetolizumab on 04/10/2021. She tolerated without acute toxicity. She was anemic at baseline, hemoglobin 9.4 g. During subsequent follow-up she became severely neutropenic, requiring growth factor support with G-CSF. She also required PRBC transfusion. She remained afebrile on antibiotic coverage with Levaquin. She is seen for a follow-up visit. She says she is feeling good. She still has limited activity, but she is now able to do some housework. Her ECOG score is 1. Appetite has been okay. She has not had fever. She occasionally has sweating. She complains that her nose runs all the time. She has not had sore mouth or throat. She is short of breath, but she says her breathing is okay on oxygen. She does not complain of cough and she has not been having chest pain. She has had a little bit of nausea. She always has acid reflux. Bowel and bladder function have been okay. She has had some joint pain and some back pain, but it is mostly the same. She has just occasional headache. She has some numbness in her fingers. Medications: Charity 180 mg - Take 1 Tablet Oral daily, AmLODIPine Besylate 1 (10 mg) Tablet Oral daily, Benefiber 2 tsp Powder Oral every am, Cholecalciferol 1 (1000 Units) Capsule Oral every am, Famotidine 1 Tablet (of 40 mg) Oral daily, Glucosamine Chondr 1500 Complx 1 Capsule Oral daily, HydrALAZINE HCl 1 (50 mg) Tablet Oral b.i.d., Losartan Potassium 1 (50 mg) Tablet Oral b.i.d., Metoprolol Succinate ER 1 (50 mg) Tablet SR 24 HR Oral every am, Nitroglycerin Tablet, sublingual Sublingual PRN, oxygen 1 (2 L) Aerosol at bedtime, Polyethylene Glycol 1 Packet Powder daily, Protonix 1 (40 mg) Tablet, enteric coated Oral daily, Spiriva Respimat 1 (1.25 mcg/act) Aerosol, solution Inhalation daily, Synthroid 1 (75 mcg) Tablet Oral daily, Xopenex Nebulization solution Inhalation PRN, Zocor 1 (10 mg) Tablet Oral daily Allergies: PENICILLIN Vital Signs: Performed on May 08, 2021 10:39 Height - 64.00 in Weight - 190.6 lbs (HIGH) BSA - 1.92 sq.m BMI - 32.72 (HIGH) Temperature - 97.8 F (LOW) Pulse - 84 /min Respiration - 16 /min BP - 103/60 mm(hg) O2 Sat - 98 % Pain - 0 Physical Examination: Constitutional - She appears somewhat weak generally, Eyes - Sclerae nonicteric. Conjunctivae clear, ENMT - No lesions noted in the oral cavity, Hematologic/Lymphatic - No cervical, clavicular, or axillary adenopathy, Respiratory - Lungs still show diminished air movement on the left, Cardiovascular - Heart rhythm is regular. There is no murmur, gallop, or rub noted, Abdomen - Mildly distended. Liver and spleen are not enlarged. There is no abdominal mass or ascites noted and there is no inguinal adenopathy, Extremities - No edema, Neurologic - No focal neurologic deficits. Lab/Imaging: Test performed on May 08, 2021 09:40 CBC shows hemoglobin 8.3 g, white blood cell count 6300, and platelet count 190,000. Sodium 138 mmol/L Potassium 5.0 mmol/L Chloride 105 mmol/L CO2 24 mmol/L Anion Gap 14.0 BUN 7 mg/dL Glucose 96 mg/dL Osmolality - Calculated 284 mOsm/kg Calcium 7.9 mg/dL Protein, Total 5.8 g/dL Albumin 3.2 g/dL Globulin 2.6 g/dL Bilirubin, Total 0.5 mg/dL ALT (SGPT) 11 U/L AST (SGOT) 20 U/L Alkaline Phosphatase 318 IU/L Problem List: 1. Metastatic neuroendocrine lung cancer with PET/CT evidence of primary tumor in the medial left lower lobe, TNM stage IVB (T2a, N2, M1c). There was associated malignant pleural effusion and there were multiple sites of metastatic involvement by PET/CT, including multiple hepatic metastases and multiple sites of metastatic bone involvement. 2. She has a history of mantle cell lymphoma with bulky retroperitoneal adenopathy and involvement in the spleen at initial diagnosis in May 2009. She has been in sustained remission following treatment with 6 cycles of H-pjaww-KIJO chemotherapy, which she completed in September 2009. 3. She has had a mild to moderately severe thrombocytopenia following completion of the chemotherapy. 4. Hypertension. 5. Stage III chronic kidney disease. 6. GERD. 7. COPD. 8. Obstructive sleep apnea. 9. Degenerative arthritis. 10. Multinodular goiter. 11. History of pulmonary embolism. Problems Addressed with this Encounter and Plan: 1. Patient with metastatic neuroendocrine lung cancer with PET/CT evidence of primary tumor in the medial left lower lobe, TNM stage IVB (T2a, N2, M1c). There was associated malignant pleural effusion and there were multiple sites of metastatic involvement by PET/CT, including multiple hepatic metastases and multiple sites of metastatic bone involvement. Her next generation sequencing showed presence of a PIK3CA mutation. There are no other actionable mutations. Her biopsy sample was insufficient for assessment of PD-L1 expression. She opted to proceed with a trial of systemic therapy with carboplatin/etoposide chemotherapy in combination with atezolizumab. Her treatment was delayed due to a hospitalization for COVID-19 virus infection/pneumonia with acute respiratory failure. She then began cycle 1 of carboplatin/etoposide/atezolizumab on 04/10/2021. The treatment was complicated by severe neutropenia and anemia. She required growth factor support with G-CSF and she required PRBC transfusion. She had uneventful recovery. She will proceed now with her second cycle of treatment. Due to the toxicities with cycle 1, it will be administered at reduced dosages of the carboplatin and etoposide, and she also will be given Neulasta prophylactically. She will require close monitoring due to her somewhat marginal performance status and the severity of her treatment related toxicities. As her hemoglobin now just above transfusion threshold, I will repeat her CBC at day 3 and it will then be monitored weekly. She will be transfused again as needed. She will be scheduled for a follow-up visit in 3 weeks. She will have restaging CT scans prior to the visit. 2. She has multiple sites of metastatic bone involvement by PET/CT, and she also will require supportive therapy with denosumab. Signed By: Juan Luis Larios M.D. <<Signature on File>>
[2021-05-14] MEDS: denosumab 120 mg SDV SUBCUT (10:44)
[2021-05-14 11:13] LABS: Basophils # 0.1 10^3/uL (0.0-0.1); Basophils % 0.5 %; Eosinophils # 0.1 10^3/uL (0.0-0.8); Eosinophils % 0.4 %; Hemoglobin 9.8 g/dL (11.5-15.3); Lymphocytes # 1.3 10^3/uL (0.8-4.8); Lymphocytes % 9.1 %; Mean Corpuscular Hemoglobin 34.6 pg (28.0-34.0); Mean Corpuscular Volume 98.9 fl (81-99); Mean Platelet Volume 11.7 fL (7.4-10.4); Monocytes # 0.1 10^3/uL (0.2-0.9); Monocytes % 0.9 %; Nucleated Red Blood Cells % 0 %; Platelet Count 119 10^3/cmm (130-400); Red Blood Count 2.83 10^6/uL (4.1-5.3); Red Cell Distribution Width 22.8 % (12.1-15.1); White Blood Count 13.9 10^3/uL (4.0-10.0)
[2021-05-14 11:31] LABS: Slide Review Slide Review Perform
[2021-05-14 11:32] LABS: Neutrophils % 89.1 %
--- NOTE | 2021-05-16 | CT_ITS ---
WS: [id number] CT CHEST, ABDOMEN AND PELVIS WITH CONTRAST. HISTORY: MALIGNANT PLEURAL EFFUSION, lung cancer with bone and liver metastases. TECHNIQUE: Contiguous 5 mm axial imaging performed through the chest, abdomen and pelvis with IV cont rast, oral contrast has been provided. Coronal and sagittal reformats chest. Coronal and sagittal ref ormats through the abdomen and pelvis. All CT scans at [facility] use at least one of these d ose optimization techniques: automated exposure control; mA and/or kV adjustment per patient size (in cludes targeted exams where dose is matched to clinical indication); or iterative reconstruction. CONTRAST: Visipaque 320; 95 mL IV. DLP: 2335.12 mGycm COMPARISON: PET/CT 02/24/2021. Chest CT 03/19/[address]: Lungs are mildly hyperinflated. There are several subcentimeter nodules in the RIGHT lower lobe which are indeterminate for metastatic disease. The largest is 6 mm at the RIGHT lung base, imag e 38 of series 4. There are a few additional smaller nodules. Pleural thickening throughout the LEFT thorax but greatest in the lower lung field is again identified. Multi focal pleural-based noncalcifi ed plaques and lobulations have significantly improved since 02/24/2021. Also improved since 03/19/20 21. Small amount of fluid at the lung bases. Focal consolidation at the LEFT lung base probably an ar ea of atelectasis and adjacent fluid. RIGHT central line is present with tip in the SVC. Again noted is a small lymph nodes within the ante rior mediastinum. Some these lymph nodes were positive on the prior PET/CT. These are very small lymp h nodes which have not changed significantly. There is no increase in size or number. No significant reduction in size or number either. There are a few retrocrural lymph nodes which were not positive o n the PET/CT. Mild atherosclerosis aorta. Normal size heart. There is a small amount of pericardial fluid. Small hi atal hernia. Abdomen CT: There are numerous scattered low-attenuation lesions throughout the liver corresponding t o a metastatic disease seen on the recent PET/CT. These are very ill-defined all measuring less than a centimeter. These have not been imaged on a postcontrast CT therefore cannot evaluate for any moulton e in size or progression. The spleen is enlarged and there there are several low-attenuation lesions within the spleen. Well-circumscribed lesion measuring 18 mm in the central spleen was not positive o n the PET/CT. There are a few additional scattered areas of decreased attenuation which are not defin itely seen on the prior study and concerning for metastatic disease to the spleen. Splenic lesions we re identified on a prior study from 06/22/2009 which had resolved. Spleen measures 15.3 cm in length. Normal pancreas. Prior cholecystectomy. Moderate atherosclerosis of the aorta. No renal obstruction. There are a few too small to characterize low-attenuation lesions. No GI tract obstruction. Sigmoid diverticulosis without diverticulitis. No gastrohepatic or gastrosplenic habitus lymph nodes. There are a few shotty retroperitoneal lymph n odes. Pelvic CT: Normally distended urinary bladder. No ascites or adenopathy. Visualized uterus and adnexa are negative. Patient has known osseous metastatic disease which is better visualized on the PET/CT. No pathologica l fractures are identified. Moderate spondylitic changes in the thoracic and lumbar spines. CT/CT chest abd pel w con* IMPRESSION: 1. Significant improvement in the malignant LEFT pleural effusion. Decrease in size of the pleural thickening, LEFT lower lobe mass, plaques and fluid. 2. There are a few small subcentimeter nodules in the RIGHT lower lobe which c ould be early metastatic lesions or postinflammatory. These will need short-ter m follow-up. 3. Small mediastinal and hilar lymph nodes. These were positive on recent PET/ CT. No interval change and no enlarged lymph nodes. 4. Numerous, subcentimeter low-attenuation lesions throughout the liver consis tent with metastatic disease. These were not visualized on a prior CT due to th e phase of contrast injection. Subtle change would be difficult to visualize at this time. 5. There are new areas decreased attenuation throughout the spleen which are n ot seen on the recent prior studies. Suspicious for metastatic splenic involvem ent. Spleen is also enlarged measuring 15.3 cm in length. 6. No ascites or retroperitoneal/mesenteric adenopathy. 7. Known metastatic bone disease was better seen on the PET/CT.
[2021-05-16] MEDS: iohexol 300 mg/mL 50 mL Btl PO (14:52)
[2021-05-16] MEDS: iodixanol 320 mg/mL 100mL Btl IV (14:52)
[2021-05-21] MEDS: alteplase 1 mg/mL SDV 2 mL 2 MG IV (14:30)
[2021-05-21 15:22] LABS: Basophils % 0.4 %; Eosinophils # 0.1 10^3/uL (0.0-0.8); Eosinophils % 1.5 %; Hematocrit 27.6 % (37.0-47.0); Hemoglobin 8.5 g/dL (11.5-15.3); Lymphocytes # 1.2 10^3/uL (0.8-4.8); Lymphocytes % 18.2 %; Mean Corpuscular HGB Conc 30.8 g/dL (30.0-36.0); Mean Corpuscular Hemoglobin 30.1 pg (28.0-34.0); Mean Corpuscular Volume 97.9 fl (81-99); Mean Platelet Volume 12.9 fL (7.4-10.4); Monocytes # 0.8 10^3/uL (0.2-0.9); Neutrophils # 3.67 10^3/uL (1.8-7.7); Neutrophils % 54.5 %; Nucleated Red Blood Cells # 0.1 /100WBC; Nucleated Red Blood Cells % 0.9 %; Platelet Count 80 10^3/cmm (130-400); Red Blood Count 2.82 10^6/uL (4.1-5.3); White Blood Count 6.7 10^3/uL (4.0-10.0)
[2021-05-21 16:24] LABS: Slide Review Slide Review Perform
[2021-05-29 08:30] LABS: Basophils % 0.4 %; Eosinophils % 0.4 %; Hematocrit 27.2 % (37.0-47.0); Hemoglobin 8.5 g/dL (11.5-15.3); Lymphocytes # 0.9 10^3/uL (0.8-4.8); Lymphocytes % 18.1 %; Mean Corpuscular HGB Conc 31.3 g/dL (30.0-36.0); Mean Corpuscular Hemoglobin 30.7 pg (28.0-34.0); Mean Corpuscular Volume 98.2 fl (81-99); Mean Platelet Volume 11.4 fL (7.4-10.4); Monocytes # 0.7 10^3/uL (0.2-0.9); Monocytes % 14.2 %; Neutrophils # 3.23 10^3/uL (1.8-7.7); Neutrophils % 63.6 %; Nucleated Red Blood Cells % 0.4 %; Platelet Count 109 10^3/cmm (130-400); Red Blood Count 2.77 10^6/uL (4.1-5.3); Red Cell Distribution Width 23.6 % (12.1-15.1); White Blood Count 5.1 10^3/uL (4.0-10.0)
[2021-05-29 09:22] LABS: Alanine Aminotransferase 9 U/L (0-33); Albumin Level 3.5 g/dL (3.5-5.2); Alkaline Phosphatase 158 IU/L (35-105); Aspartate Amino Transferase 21 U/L (0-32); Blood Urea Nitrogen 10 mg/dL (8-23); Calcium 8.1 mg/dL (8.5-10.5); Carbon Dioxide 22 mmol/L (22-29); Chloride 107 mmol/L (98-107); Glucose 90 mg/dL (65-115); Osmolality Calculated 287 mOsm/kg (285-295); Sodium 139 mmol/L (136-145); Thyroid Stimulating Hormone 5.07 uIU/mL (0.27-4.20); Total Bilirubin 0.9 mg/dL (0.15-1.2); Total Protein 5.5 g/dL (6.6-8.7)
[2021-05-29] MEDS: sodium chloride 0.9% 250 ML 75 ML IV (10:45)
[2021-05-29] MEDS: ondansetron 2 mg/ML SDV 2 mL 8 MG IV (10:50)
[2021-05-29] MEDS: acetaminophen 325 mg Tablet 650 MG PO (15:20)
[2021-05-30] MEDS: ondansetron 2 mg/ML SDV 2 mL 8 MG IV (10:24)
[2021-05-30] MEDS: sodium chloride 0.9% 250 ML 75 ML IV (10:24)
[2021-05-31] VITALS (8 sets, daily range): BP systolic 116–146; BP diastolic 48–65; PULSE 60–66; RESP 18–20; TEMP 36.9–37.6; O2SAT 98–99
[2021-05-31 11:45] LABS: Basophils % 0.2 %; Hematocrit 23.7 % (37.0-47.0); Hemoglobin 7.5 g/dL (11.5-15.3); Lymphocytes # 0.6 10^3/uL (0.8-4.8); Lymphocytes % 11.9 %; Mean Corpuscular HGB Conc 31.6 g/dL (30.0-36.0); Mean Corpuscular Hemoglobin 32.8 pg (28.0-34.0); Mean Corpuscular Volume 103.5 fl (81-99); Mean Platelet Volume 11.9 fL (7.4-10.4); Monocytes # 0.5 10^3/uL (0.2-0.9); Monocytes % 10.5 %; Neutrophils # 3.78 10^3/uL (1.8-7.7); Neutrophils % 76.4 %; Nucleated Red Blood Cells % 0 %; Platelet Count 97 10^3/cmm (130-400); Red Blood Count 2.29 10^6/uL (4.1-5.3); Red Cell Distribution Width 24.4 % (12.1-15.1)
[2021-05-31] MEDS: sodium chloride 0.9% 250 ML 75 ML IV (11:45)
[2021-05-31] MEDS: palonosetron 0.25 mg/5 mL SDV IV (11:46)
[2021-05-31] MEDS: diphenhydrAMINE 25 mg Capsule PO (12:45)
[2021-05-31] MEDS: acetaminophen 325 mg Tablet 650 MG PO (12:45)
[2021-05-31] MEDS: FUROsemide 10 mg/mL SDV 2mL 20 MG IV (15:15)
[2021-05-31] MEDS: pegfilgrastim 6 mg/0.6 mL Kit (onpro) SUBCUT (16:45)
--- NOTE | 2021-06-07 10:35 | ONC FU_ITS ---
Dr. Larios Patient Follow-Up Note Patient: Shahnaz Harper Unit #: [id number]: 1945 Dicatated By: Juan Luis Larios M.D.Date of Visit:May 29, 2021 Onc Med Follow-up/Prog Note Chief Complaint: Mantle cell lymphoma/llung cancer. History of Present Illness: This is a 76 year-old woman with a history of mantle cell lymphoma. In January 2021 she was found to have metastatic neuroendocrine lung cancer. She has COPD. She had presented in January with left lower back pain and she was found on CT to have a left pleural effusion. She was then seen at the [facility] pulmonary clinic and she underwent thoracentesis on 01/29/2021. The pleural fluid cytology showed malignant cells which were positive for CK7, TTF-1, and MOC-31. They were negative for cyclin D1, CK20, Jorge Luis-EP4, calretinin, CD20, and CD3. On further analysis, there was positive staining for synaptophysin with negative p40 and Napsin, supporting a neuroendocrine carcinoma. 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 The sample was insufficient for assessment of PD-L1 expression. She had further staging with PET/CT on 02/24/2021. That study showed an FDG avid solid lesion in the medial left lower lobe measuring 3.4 x 3.2 cm, SUV 12.4, strongly consistent with malignancy. Multiple FDG positive left hemithorax pleural plaques are also consistent with malignancy. Malignant nodes were present in the left hilum and prevascular territories. There was evidence of metastatic disease in the right and left hepatic lobes and there was malignant adenopathy in the retrocaval and peripancreatic regions. Also noted were multiple sites of osseous metastatic disease. She was referred to Dr. Santillan for consideration of chest tube placement in the left pleural cavity, but he recommended against it because the effusion appeared to be loculated. In the meantime, she had further evaluation with next generation sequencing study. 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 Multiple other mutations were noted, none of which were actionable. On 03/05/2020 when she was seen for a follow-up visit to discuss further treatment. She opted to proceed with a trial of combined chemotherapy/immunotherapy. Based on the neuroendocrine differentiation, I recommended carboplatin/etoposide in combination with atezolizumab. She then underwent placement of Port-A-Cath venous access device on 03/14/2021. Her further treatment was then delayed due to COVID 19 virus infection/pneumonia, for she was admitted to the hospital with respiratory failure on 03/19/2021. She was discharged home on 03/28/2021. Her medical history is otherwise significant for mantle cell lymphoma, initially diagnosed in May 2009. She was treated with R- hyperCVAD chemotherapy with good clinical response. She completed 6 cycles of treatment as of September 2009. A PET/CT at that point showed a residual 3 cm mass at the celiac access as well as 4 residual cystic masses within the spleen, but these all showed just low-grade FDG uptake. She was then followed on expectant management. During her followup she continued to have a mild thrombocytopenia, but there was no evidence of recurrence/progression of the lymphoma. Her other medical illnesses include COPD, hypertension, chronic kidney disease, GERD, multinodular goiter, obstructive sleep apnea, and degenerative arthritis. She has a history of pulmonary embolism. She underwent right hemithyroidectomy in 2010. She had several polyps removed by colonoscopy in June 2012. She had a pretty severe episode of pneumonia in September 2012. She had a repeat EGD and colonoscopy in January 2019. The only significant finding apparently was gastritis. She had smoked in the past, but she quit in 2008. INTERIM HISTORY: She began cycle 1 of carboplatin/etopside/acetolizumab on 04/10/2021. She tolerated without acute toxicity. She was anemic at baseline, hemoglobin 9.4 g. During subsequent follow-up she became severely neutropenic, requiring growth factor support with G-CSF. She also required PRBC transfusion. She remained afebrile on antibiotic coverage with Levaquin. She continued with cycle 2 on 05/08/2021. It was administered with Neulasta prophylactically. She again required PRBC transfusion, but her other blood counts remained adequate. Her restaging chest CT on 05/16/2021 showed improvement in the pleural-based noncalcified plaques in lobulations. There was just a small amount of residual fluid at the lung bases. There were just small lymph nodes noted within the anterior mediastinum. Numerous low-attenuation lesions were noted throughout the liver and several low-attenuation lesions were noted within the spleen. Overall, there was significant improvement noted in the left lower lobe mass and pleural thickening, consistent with treatment response. She is seen for a follow-up visit. She has had improved energy and activity tolerance following her day 4 PRBC transfusion. She has been doing some housework. ECOG score is 1. She has good appetite. She has not had fever. She occasionally has sweating. She says her nose has been running really bad, and she also has been having tearing in both eyes. She has not had sore mouth or throat. She still has some shortness of breath with activity, but her breathing is pretty good on oxygen. She has just a little bit of dry hacking cough. She does not complain of chest pain. She has no GI/ complaints other than acid reflux. She has some aching in her joints, which is unchanged. She has had occasional headache. She does not complain of dizziness. She has some numbness/tingling in her hands. Medications: Charity 180 mg - Take 1 Tablet Oral daily, AmLODIPine Besylate 1 (10 mg) Tablet Oral daily, Benefiber 2 tsp Powder Oral every am, Cholecalciferol 1 (1000 Units) Capsule Oral every am, Famotidine 1 Tablet (of 40 mg) Oral daily, Glucosamine Chondr 1500 Complx 1 Capsule Oral daily, HydrALAZINE HCl 1 (50 mg) Tablet Oral b.i.d., Losartan Potassium 1 (50 mg) Tablet Oral b.i.d., Metoprolol Succinate ER 1 (50 mg) Tablet SR 24 HR Oral every am, Nitroglycerin Tablet, sublingual Sublingual PRN, oxygen 1 (2 L) Aerosol at bedtime, Polyethylene Glycol 1 Packet Powder daily, Protonix 1 (40 mg) Tablet, enteric coated Oral daily, Spiriva Respimat 1 (1.25 mcg/act) Aerosol, solution Inhalation daily, Synthroid 1 (75 mcg) Tablet Oral daily, Xopenex Nebulization solution Inhalation PRN, Zocor 1 (10 mg) Tablet Oral daily Allergies: PENICILLIN Vital Signs: Performed on May 29, 2021 09:56 Height - 64.00 in Weight - 192.8 lbs (HIGH) BSA - 1.93 sq.m BMI - 33.09 (HIGH) Temperature - 97.7 F (LOW) Pulse - 76 /min Respiration - 19 /min BP - 160/69 mm(hg) (HIGH) O2 Sat - 96 % Pain - 0 Fatigue - 6 Physical Examination: Constitutional - She appears somewhat weak generally, Eyes - Sclerae nonicteric. Conjunctivae clear, ENMT - No lesions noted in the oral cavity, Hematologic/Lymphatic - No cervical, clavicular, or axillary adenopathy, Respiratory - Lungs show some decrease in air movement bilaterally, slightly worse on the left, Cardiovascular - Heart rhythm is regular. There is no murmur, gallop, or rub noted, Abdomen - Mildly distended. Liver and spleen are not enlarged. There is no abdominal mass or ascites noted and there is no inguinal adenopathy, Extremities - No edema, Neurologic - No focal neurologic deficits. Lab/Imaging: Test performed on May 29, 2021 08:18 Sodium 139 mmol/L TSH 5.07 uIU/mL Potassium 5.0 mmol/L Chloride 107 mmol/L CO2 22 mmol/L Anion Gap 15.0 BUN 10 mg/dL Glucose 90 mg/dL Osmolality - Calculated 287 mOsm/kg Calcium 8.1 mg/dL Protein, Total 5.5 g/dL Albumin 3.5 g/dL Globulin 2.0 g/dL Bilirubin, Total 0.9 mg/dL ALT (SGPT) 9 U/L AST (SGOT) 21 U/L Alkaline Phosphatase 158 IU/L Anti-D Positive Blood Type AP Antibody Screen (Gel) NEGATIVE Problem List: 1. Metastatic neuroendocrine lung cancer with PET/CT evidence of primary tumor in the medial left lower lobe, TNM stage IVB (T2a, N2, M1c). There was associated malignant pleural effusion and there were multiple sites of metastatic involvement by PET/CT, including multiple hepatic metastases and multiple sites of metastatic bone involvement. 2. She has a history of mantle cell lymphoma with bulky retroperitoneal adenopathy and involvement in the spleen at initial diagnosis in May 2009. She has been in sustained remission following treatment with 6 cycles of [id number] chemotherapy, which she completed in September 2009. 3. She has had a mild to moderately severe thrombocytopenia following completion of the chemotherapy. 4. Hypertension. 5. Stage III chronic kidney disease. 6. GERD. 7. COPD. 8. Obstructive sleep apnea. 9. Degenerative arthritis. 10. Multinodular goiter. 11. History of pulmonary embolism. Problems Addressed with this Encounter and Plan: 1. Patient with metastatic neuroendocrine lung cancer with PET/CT evidence of primary tumor in the medial left lower lobe, TNM stage IVB (T2a, N2, M1c). There was associated malignant pleural effusion and there were multiple sites of metastatic involvement by PET/CT, including multiple hepatic metastases and multiple sites of metastatic bone involvement. Her next generation sequencing showed presence of a PIK3CA mutation. There were no other actionable mutations. Her biopsy sample was insufficient for assessment of PD-L1 expression. She opted to proceed with a trial of systemic therapy with carboplatin/etoposide chemotherapy in combination with atezolizumab. Her treatment was delayed due to a hospitalization for COVID-19 virus infection/pneumonia with acute respiratory failure. She then began cycle 1 of carboplatin/etoposide/atezolizumab on 04/10/2021. The treatment was complicated by severe neutropenia and anemia. She required growth factor support with G-CSF and she required PRBC transfusion. She had uneventful recovery. She then continued with cycle 2 on 05/08/2021 it was administered with Neulasta prophylactically. She again required PRBC transfusion, but her other blood counts remained adequate and she otherwise tolerated the treatment well. She does appear to be showing response by restaging chest CT. As such, she will continue now with cycle 3 of carboplatin/etoposide in combination with atezolizumab. The dosages remain the same. She will again be given Neulasta prophylactically. She will be transfused PRBC as needed. She will be scheduled for a follow-up visit in 3 weeks. 2. She has multiple sites of metastatic bone involvement by PET/CT. She has now started on supportive therapy with denosumab. Signed By: Juan Luis Larios M.D. <<Signature on File>>
== END 2021-06-04 23:59 | disposition home or self-care (01) ==
LOC: ONCMED 06:30
PROVIDERS: PCP Family Medicine; Visit Provider Internal Medicine Medical Oncology
DX: Z51.12 Encounter for antineoplastic immunotherapy (principal); Z51.11 Encounter for antineoplastic chemotherapy; C34.32 Malignant neoplasm of lower lobe, left bronchus or lung; J91.0 Malignant pleural effusion; C78.7 Secondary malignant neoplasm of liver and intrahepatic bile duct; C79.51 Secondary malignant neoplasm of bone; D69.6 Thrombocytopenia, unspecified; I10 Essential (primary) hypertension; N18.30 Chronic kidney disease, stage 3 unspecified; K21.9 Gastro-esophageal reflux disease without esophagitis; J44.9 Chronic obstructive pulmonary disease, unspecified; G47.33 Obstructive sleep apnea (adult) (pediatric); M19.90 Unspecified osteoarthritis, unspecified site; E04.2 Nontoxic multinodular goiter; Z86.711 Personal history of pulmonary embolism; Z85.72 Personal history of non-Hodgkin lymphomas; Z79.899 Other long term (current) drug therapy
CPT/HCPCS: 36430; 36591; 71260; 74177; 80053; 84443; 85025; 86850; 86900; 86920; 96367; 96372; 96375; 96377; 96413; 96417; 99215; J0897; J1100; J1940; J2405; J2469; J2506; J2997; J7040; J7050; J9022; J9045; J9181; P9040

== ENCOUNTER 2021-06-20 06:50 | Outpatient (RCR) | payer MEDICARE, MEDICAID, SELFPAY ==
[2021-06-05 14:11] LABS: Basophils % 1.2 %; Eosinophils % 1.2 %; Hematocrit 27.3 % (37.0-47.0); Hemoglobin 8.4 g/dL (11.5-15.3); Lymphocytes # 0.8 10^3/uL (0.8-4.8); Lymphocytes % 24.7 %; Mean Corpuscular HGB Conc 30.8 g/dL (30.0-36.0); Mean Corpuscular Hemoglobin 30.8 pg (28.0-34.0); Mean Platelet Volume 12.2 fL (7.4-10.4); Monocytes # 0.3 10^3/uL (0.2-0.9); Monocytes % 8.6 %; Neutrophils # 2.07 10^3/uL (1.8-7.7); Neutrophils % 61.6 %; Nucleated Red Blood Cells % 0 %; Platelet Count 50 10^3/cmm (130-400); Red Blood Count 2.73 10^6/uL (4.1-5.3); Red Cell Distribution Width 20.9 % (12.1-15.1); White Blood Count 3.4 10^3/uL (4.0-10.0)
[2021-06-05 14:51] LABS: Slide Review Slide Review Perform
[2021-06-12 14:06] LABS: Hematocrit 23.2 % (37.0-47.0); Hemoglobin 7.4 g/dL (11.5-15.3); Mean Corpuscular HGB Conc 31.9 g/dL (30.0-36.0); Mean Corpuscular Hemoglobin 32.5 pg (28.0-34.0); Mean Corpuscular Volume 101.8 fl (81-99); Mean Platelet Volume 13.4 fL (7.4-10.4); Platelet Count 44 10^3/cmm (130-400); Red Blood Count 2.28 10^6/uL (4.1-5.3)
[2021-06-12 14:21] LABS: Slide Review Slide Review Perform
[2021-06-12 14:23] LABS: Absolute Segmented Neutrophil 2.5 10/cmm (1.6-7.1); Band Neutrophils Absolute 0.6 10^3/cmm (0.0-1.2); Lymphocytes 25 %; Monocytes Absolute 0.6 10^3/cmm (0.1-0.6); Segmented Neutrophils 49 %; Total Cells Counted 100 (0-100)
[2021-06-12 14:24] LABS: Absolute Neutrophil 3.1 10^3/cmm (1.4-6.5); Eosinophils 0 %; Giant Platelets Trace; Lymphocytes Absolute 1.3 10^3/cmm (1.2-3.4); Platelet Estimate Decreased (Normal); Poikilocytosis 1+; Tear Drop Cells 1+
[2021-06-12] MEDS: denosumab 120 mg SDV SUBCUT (15:00)
[2021-06-13] MEDS: sodium chloride 0.9% 250 ML 999 ML IV (10:00)
[2021-06-13] MEDS: diphenhydrAMINE 25 mg Capsule PO (10:00)
[2021-06-13] MEDS: acetaminophen 325 mg Tablet 650 MG PO (10:00)
[2021-06-13 14:40] VITALS: BP 142/61; PULSE 57; RESP 18; TEMP 37.3; O2SAT 96
[2021-06-13] MEDS: FUROsemide 10 mg/mL SDV 2mL 20 MG IV (16:20)
[2021-06-13 16:25] VITALS: PULSE 73; RESP 18; TEMP 37.9
[2021-06-13 17:39] LABS: Add Urine Microscopic? YES; Bilirubin Urine Neg (Negative); Blood Urine 3+ (Negative); Glucose Urine UA Norm (Normal); Ketones Urine Negative (Negative); Leukocyte Esterase Urine Trace (Negative); Nitrate Urine Negative (Negative); Protein Urine 3+ (Negative); Specific Gravity, Urine 1.015 (1.005-1.030); Urine Appearance Cloudy (CLEAR); Urine Color Red (Yellow); Urobilinogen Urine 4 mg/dL (Negative); pH Urine 6.5 (5-7)
[2021-06-13 17:40] LABS: Add Urine Culture? No; Amorphous Sediment Urine 1+ /hpf; Bacteria Urine TRACE /hpf; RBC Urine 0-4 /hpf (0-2); WBC Urine RARE /hpf (0-5)
[2021-06-19] MEDS: alteplase 1 mg/mL SDV 2 mL 2 MG IV (10:30)
[2021-06-19 11:11] LABS: Alanine Aminotransferase 14 U/L (0-33); Albumin Level 3.5 g/dL (3.5-5.2); Alkaline Phosphatase 88 IU/L (35-105); Anion Gap 12.9 (5-19); Aspartate Amino Transferase 26 U/L (0-32); Blood Urea Nitrogen 22 mg/dL (8-23); Calcium 8.3 mg/dL (8.5-10.5); Carbon Dioxide 23 mmol/L (22-29); Chloride 105 mmol/L (98-107); Globulin 2.7 g/dL (1.3-4.6); Glucose 115 mg/dL (65-115); Osmolality Calculated 288 mOsm/kg (285-295); Potassium 3.9 mmol/L (3.5-5.1); Sodium 137 mmol/L (136-145); Total Bilirubin 1.2 mg/dL (0.15-1.2); Total Protein 6.2 g/dL (6.6-8.7)
[2021-06-19 11:12] LABS: Thyroid Stimulating Hormone 1.25 uIU/mL (0.27-4.20)
[2021-06-19 11:22] LABS: Basophils % 0.3 %; Eosinophils % 0.3 %; Lymphocytes # 1.9 10^3/uL (0.8-4.8); Lymphocytes % 26.7 %; Mean Corpuscular HGB Conc 31.6 g/dL (30.0-36.0); Mean Platelet Volume 13.4 fL (7.4-10.4); Monocytes # 1.2 10^3/uL (0.2-0.9); Monocytes % 17.2 %; Neutrophils # 3.29 10^3/uL (1.8-7.7); Neutrophils % 45.5 %; Nucleated Red Blood Cells # 0.2 /100WBC; Nucleated Red Blood Cells % 2.1 %; Platelet Count 65 10^3/cmm (130-400); Red Cell Distribution Width 24.2 % (12.1-15.1); White Blood Count 7.2 10^3/uL (4.0-10.0)
[2021-06-19 11:37] LABS: Slide Review Slide Review Perform
[2021-06-19] MEDS: diphenhydrAMINE 25 mg Capsule PO (12:00)
[2021-06-19] MEDS: acetaminophen 325 mg Tablet 650 MG PO (12:00)
[2021-06-19] MEDS: sodium chloride 0.9% 250 ML 999 ML IV (12:00)
[2021-06-20] VITALS (9 sets, daily range): BP systolic 95–122; BP diastolic 45–56; PULSE 62–67; RESP 18; TEMP 36.4–37.1; O2SAT 96–100
[2021-06-20] MEDS: FUROsemide 10 mg/mL SDV 2mL 20 MG IV (13:55)
[2021-06-20 15:07] LABS: Erythropoietin 67.9 mIU/mL (2.6-18.5)
[2021-06-20 16:40] LABS: Add Urine Microscopic? NO; Charge for UA Resulting for Rev
[2021-06-20 19:47] LABS: Urine Color Colorless (Yellow)
[2021-06-20 19:48] LABS: Bilirubin Urine Neg (Negative); Blood Urine Neg (Negative); Glucose Urine UA Norm (Normal); Ketones Urine Negative (Negative); Leukocyte Esterase Urine Negative (Negative); Nitrate Urine Negative (Negative); Protein Urine Neg (Negative); Urine Appearance Clear (CLEAR); Urobilinogen Urine Neg (Negative); pH Urine 5 (5-7)
--- NOTE | 2021-06-22 12:25 | ONC FU_ITS ---
Letha Fountain Progress Note Patient: Shahnaz Harper Unit #: [id number]: 1945 Dicatated By: Letha Fountain N.P.Date of Visit:Jun 19, 2021 Onc MED Follow-up/Prog Note Chief Complaint: Mantle cell lymphoma/llung cancer. History of Present Illness: This is a 76 year-old woman with a history of mantle cell lymphoma. In January 2021 she was found to have metastatic neuroendocrine lung cancer. She has COPD. She had presented in January with left lower back pain and she was found on CT to have a left pleural effusion. She was then seen at the [facility] pulmonary clinic and she underwent thoracentesis on 01/29/2021. The pleural fluid cytology showed malignant cells which were positive for CK7, TTF-1, and MOC-31. They were negative for cyclin D1, CK20, Jorge Luis-EP4, calretinin, CD20, and CD3. On further analysis, there was positive staining for synaptophysin with negative p40 and Napsin, supporting a neuroendocrine carcinoma. 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 The sample was insufficient for assessment of PD-L1 expression. She had further staging with PET/CT on 02/24/2021. That study showed an FDG avid solid lesion in the medial left lower lobe measuring 3.4 x 3.2 cm, SUV 12.4, strongly consistent with malignancy. Multiple FDG positive left hemithorax pleural plaques are also consistent with malignancy. Malignant nodes were present in the left hilum and prevascular territories. There was evidence of metastatic disease in the right and left hepatic lobes and there was malignant adenopathy in the retrocaval and peripancreatic regions. Also noted were multiple sites of osseous metastatic disease. She was referred to Dr. Santillan for consideration of chest tube placement in the left pleural cavity, but he recommended against it because the effusion appeared to be loculated. In the meantime, she had further evaluation with next generation sequencing study. 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 Multiple other mutations were noted, none of which were actionable. On 03/05/2020 when she was seen for a follow-up visit to discuss further treatment. She opted to proceed with a trial of combined chemotherapy/immunotherapy. Based on the neuroendocrine differentiation, I recommended carboplatin/etoposide in combination with atezolizumab. She then underwent placement of Port-A-Cath venous access device on 03/14/2021. Her further treatment was then delayed due to COVID 19 virus infection/pneumonia, for she was admitted to the hospital with respiratory failure on 03/19/2021. She was discharged home on 03/28/2021. Her medical history is otherwise significant for mantle cell lymphoma, initially diagnosed in May 2009. She was treated with R- hyperCVAD chemotherapy with good clinical response. She completed 6 cycles of treatment as of September 2009. A PET/CT at that point showed a residual 3 cm mass at the celiac access as well as 4 residual cystic masses within the spleen, but these all showed just low-grade FDG uptake. She was then followed on expectant management. During her followup she continued to have a mild thrombocytopenia, but there was no evidence of recurrence/progression of the lymphoma. Her other medical illnesses include COPD, hypertension, chronic kidney disease, GERD, multinodular goiter, obstructive sleep apnea, and degenerative arthritis. She has a history of pulmonary embolism. She underwent right hemithyroidectomy in 2010. She had several polyps removed by colonoscopy in June 2012. She had a pretty severe episode of pneumonia in September 2012. She had a repeat EGD and colonoscopy in January 2019. The only significant finding apparently was gastritis. She had smoked in the past, but she quit in 2008. INTERIM HISTORY: She began cycle 1 of carboplatin/etopside/acetolizumab on 04/10/2021. She tolerated without acute toxicity. She was anemic at baseline, hemoglobin 9.4 g. During subsequent follow-up she became severely neutropenic, requiring growth factor support with G-CSF. She also required PRBC transfusion. She remained afebrile on antibiotic coverage with Levaquin. She continued with cycle 2 on 05/08/2021. It was administered with Neulasta prophylactically. She again required PRBC transfusion, but her other blood counts remained adequate. Her restaging chest CT on 05/16/2021 showed improvement in the pleural-based noncalcified plaques in lobulations. There was just a small amount of residual fluid at the lung bases. There were just small lymph nodes noted within the anterior mediastinum. Numerous low-attenuation lesions were noted throughout the liver and several low-attenuation lesions were noted within the spleen. Overall, there was significant improvement noted in the left lower lobe mass and pleural thickening, consistent with treatment response. Patient today for follow-up. She is complaining of fatigue and weakness. She denies nausea vomiting. She denies cough is have some mild shortness of breath upon exertion. She currently wears oxygen at 2 L per nasal cannula. She denies any problems with her bowels or bladder. She has occasional joint pain related to arthritis. She does experience some numbness and tingling in her hands. Review Of Symptoms:Review of Systems is not available for this patient. Past Medical History: Chronic kidney disease Chronic obstructive pulmonary disease Degenerative arthritis Gastroesophageal reflux disease History of pulmonary embolism Hypertension Mantle cell lymphoma Multinodular goiter Obstructive sleep apnea Covid virus in 2020 Past Surgical History: Bone marrow aspiration Covid vaccine #2 in 2020 Covid vaccine #1 in 2020 Cholecystectomy in 2014 Fluzone Injection in 2011 - Fluzone mutli gardner vial .5ml dose IM LUE Zostavax Injection in 2011 - Zostavax Inj single dose vial. 0.65 ml SC LUE Right hemithyroidectomy in 2010 Bone marrow biopsy in 2009 Caesarean section in 1988 Allergies: PENICILLIN Medications: Charity 180 mg - Take 1 Tablet Oral daily AmLODIPine Besylate 1 (10 mg) Tablet Oral daily Benefiber 2 tsp Powder Oral every am Cholecalciferol 1 (1000 Units) Capsule Oral every am Famotidine 1 Tablet (of 40 mg) Oral daily Glucosamine Chondr 1500 Complx 1 Capsule Oral daily HydrALAZINE HCl 1 (50 mg) Tablet Oral b.i.d. Losartan Potassium 1 (50 mg) Tablet Oral b.i.d. Metoprolol Succinate ER 1 (50 mg) Tablet SR 24 HR Oral every am Nitroglycerin Tablet, sublingual Sublingual PRN oxygen 1 (2 L) Aerosol at bedtime Polyethylene Glycol 1 Packet Powder daily Protonix 1 (40 mg) Tablet, enteric coated Oral daily Spiriva Respimat 1 (1.25 mcg/act) Aerosol, solution Inhalation daily Synthroid 1 (75 mcg) Tablet Oral daily Xopenex Nebulization solution Inhalation PRN Zocor 1 (10 mg) Tablet Oral daily Family History: His sister of renal cell cancer at age 52. Her mother had diabetes and renal failure. She of stroke at age 72. Father with heart attack at age 80. Another sister and a brother also have diabetes. Social History: Ms. Harper is and she is retired. Ms. Harper no longer smokes. She drinks occasionally. She has indicated exposure to the following products: cigarettes. She has a history of smoking 1/2 pack of cigarettes daily for 40 years. She quit smoking in 2008. She has had only rare alcohol use. Physical Examination: Performed on Jun 19, 2021 13:54: Height - 64.00 in, Weight - 189.6 lbs (LOW), BSA - 1.91 sq.m, BMI - 32.54 (HIGH), Temperature - 98.6 F, Pulse - 76 /min, Respiration - 22 /min, BP - 111/59 mm(hg), O2 Sat - 94 % (LOW), Pain - 0, and Fatigue - 6. Performance Status: 1 - No physically strenuous activity, but ambulatory and able to carry out light or sedentary work (e.g. office work, light house work). (ECOG) Constitutional Alert, cooperative, oriented. Mood and affect appropriate. Appears close to chronological age. Well nourished. Well developed. Head Normocephalic; no scars. Respiratory Lungs are clear to auscultation without rhonchi or wheezing. Cardiovascular Regular rate and rhythm of heart without murmurs, gallops or rubs. Abdomen Non-tender, non-distended, no masses, ascites or hepatosplenomegaly. Good bowel sounds. No guarding or rebound tenderness. Psychiatric Alert and oriented times three. Coherent speech. Verbalizes understanding of our discussions today. Laboratory: Test performed on Jun 19, 2021 12:05 Erythropoietin 67.9 mIU/mL Test performed on Jun 19, 2021 10:30 Antibody ID CAA Anti-D Positive Blood Type AP Antibody Screen (Gel) POSITIVE Test performed on Jun 19, 2021 10:20 Sodium 137 mmol/L TSH 1.25 uIU/mL Potassium 3.9 mmol/L Chloride 105 mmol/L CO2 23 mmol/L Anion Gap 12.9 BUN 22 mg/dL Creatinine 1.0 mg/dL Cr Clearance (Est) 65.0300 mL/min Glucose 115 mg/dL Osmolality - Calculated 288 mOsm/kg Calcium 8.3 mg/dL Protein, Total 6.2 g/dL Albumin 3.5 g/dL Globulin 2.7 g/dL Bilirubin, Total 1.2 mg/dL ALT (SGPT) 14 U/L AST (SGOT) 26 U/L Alkaline Phosphatase 88 IU/L WBC 7.2 10 3/uL RBC 2.00 10 6/uL HGB 6.0 g/dL HCT 19.0 % MCV 95.0 fl MCH 30.0 pg MCHC 31.6 g/dL RDW 24.2 % Platelet Count 65 10 3/cmm MPV 13.4 fL Neutrophils 3.29 10 3/uL Lymphocytes 1.9 10 3/uL Monocytes 1.2 10 3/uL Eosinophils 0.0 10 3/uL Basophils 0.0 10 3/uL Neutrophil % 45.5 % Lymphocyte % 26.7 % Monocyte % 17.2 % Eosinophil % 0.3 % Basophils % 0.3 % NRBC % 2.1 % CBC Slide Review Slide Review Perform SLIDE REVIEW AGREES WITH AUTOMATED RESULTS ST Test performed on Jun 13, 2021 16:15 Ua Color Red Ua Appearance Cloudy Ua Glucose Norm Ua Bilirubin Neg Ua Ketones Negative Ua Specific [place] 1.015 Ua Blood 3+ Ua pH 6.5 Ua Protein 3+ Ua Urobilinogen 4 mg/dL Ua Nitrites Negative Ua Leukocyte Esterase Trace Ua Micro: Amorph Sediment 1+ /hpf Ua Micro: WBC RARE /hpf Urine Culture CC 100 CFU/ml Ua Micro: RBC 0-4 /hpf Ua Micro: Squam Epith Cells 5-10 /hpf Ua Micro: Bacteria TRACE /hpf Test performed on Jun 12, 2021 13:45 Manual Segs % 49 % Manual Bands % 12.0 % Manual Lymphs % 25 % Atypical Lymphs % 0.0 % Total Cells Counted 100 Manual Monos % 11.0 % Manual Eos % 0 % Manual Basos % 0.0 % Metamyelocytes % 3.0 % Poikilocytosis 1+ Tear Drop Cells 1+ Platelet Estimate Decreased Platelets, Giant Trace Manual Segs Abs 2.5 10/cmm Manual Bands Abs 0.6 10 3/cmm Manual Neutrophils Abs 3.1 10 3/cmm Manual Lymphocytes Abs 1.3 10 3/cmm Manual Monocytes Abs 0.6 10 3/cmm Manual Eosinophils Abs 0.0 10 3/cmm Manual Basophils Abs 0.0 10 3/cmm Test performed on May 01, 2021 08:20 Anisocytosis 1+ Stomatocytes Trace Test performed on Apr 24, 2021 13:44 Irradiated Red Blood Cells [id number] AN RCI XM COMPATIBLE Test performed on Jan 15, 2021 09:05 D-Dimer 3.39 mcg/mL Test performed on Jan 15, 2021 00:00 Cholesterol, Total 90 mg/dL T4 1.5 mcg/dL HDL Cholesterol 43 mg/dL LDL Cholesterol 31 mg/dL VLDL Cholesterol 16 mg/dL Triglycerides 77 mg/dL Sed Rate 11 mm/hr Impression: 1. Metastatic neuroendocrine lung cancer with PET/CT evidence of primary tumor in the medial left lower lobe, TNM stage IVB (T2a, N2, M1c). There was associated malignant pleural effusion and there were multiple sites of metastatic involvement by PET/CT, including multiple hepatic metastases and multiple sites of metastatic bone involvement. 2. She has a history of mantle cell lymphoma with bulky retroperitoneal adenopathy and involvement in the spleen at initial diagnosis in May 2009. She has been in sustained remission following treatment with 6 cycles of [id number] chemotherapy, which she completed in September 2009. 3. She has had a mild to moderately severe thrombocytopenia following completion of the chemotherapy. 4. Hypertension. 5. Stage III chronic kidney disease. 6. GERD. 7. COPD. 8. Obstructive sleep apnea. 9. Degenerative arthritis. 10. Multinodular goiter. 11. History of pulmonary embolism. Plan: 1. Patient with metastatic neuroendocrine lung cancer with PET/CT evidence of primary tumor in the medial left lower lobe, TNM stage IVB (T2a, N2, M1c). There was associated malignant pleural effusion and there were multiple sites of metastatic involvement by PET/CT, including multiple hepatic metastases and multiple sites of metastatic bone involvement. Her next generation sequencing showed presence of a PIK3CA mutation. There were no other actionable mutations. Her biopsy sample was insufficient for assessment of PD-L1 expression. She opted to proceed with a trial of systemic therapy with carboplatin/etoposide chemotherapy in combination with atezolizumab. Her treatment was delayed due to a hospitalization for COVID-19 virus infection/pneumonia with acute respiratory failure. She then began cycle 1 of carboplatin/etoposide/atezolizumab on 04/10/2021. The treatment was complicated by severe neutropenia and anemia. She required growth factor support with G-CSF and she required PRBC transfusion. She had uneventful recovery. She then continued with cycle 2 on 05/08/2021 it was administered with Neulasta prophylactically. She again required PRBC transfusion, but her other blood counts remained adequate and she otherwise tolerated the treatment well. She does appear to be showing response by restaging chest CT. Labs were reviewed with patient her hemoglobin is 6.0 and her hematocrit is 19.0. Once again she will require 2 units of packed red blood cells to be transfused in the a.m. And erythropoietin was checked and was resulted at 67.9. An order was placed for Procrit 40,000 units weekly and that will be started once approved by insurance. 2. She has multiple sites of metastatic bone involvement by PET/CT. She has now started on supportive therapy with denosumab. Signed By: Letha Fountain N.P. <<Signature on File>>
== END 2021-07-02 23:59 | disposition home or self-care (01) ==
LOC: ONCMED 06:50
PROVIDERS: Internal Medicine Medical Oncology; PCP Family Medicine; Visit Provider Nurse Practitioner Family
DX: Z51.11 Encounter for antineoplastic chemotherapy (principal); C34.32 Malignant neoplasm of lower lobe, left bronchus or lung; J91.0 Malignant pleural effusion; C78.7 Secondary malignant neoplasm of liver and intrahepatic bile duct; C79.51 Secondary malignant neoplasm of bone; Z85.72 Personal history of non-Hodgkin lymphomas; D69.6 Thrombocytopenia, unspecified; I12.9 Hypertensive chronic kidney disease with stage 1 through stage 4 chronic kidney disease, or unspecified chronic kidney disease; N18.30 Chronic kidney disease, stage 3 unspecified; K21.9 Gastro-esophageal reflux disease without esophagitis; J44.9 Chronic obstructive pulmonary disease, unspecified; G47.33 Obstructive sleep apnea (adult) (pediatric); M19.90 Unspecified osteoarthritis, unspecified site; E04.2 Nontoxic multinodular goiter; Z86.711 Personal history of pulmonary embolism; Z79.899 Other long term (current) drug therapy; Z92.21 Personal history of antineoplastic chemotherapy
CPT/HCPCS: 36430; 36591; 36593; 80053; 81001; 81003; 82668; 84443; 85007; 85025; 86850; 86870; 86900; 86920; 87077; 87086; 87186; 96372; 96374; 99215; J0897; J1940; J2997; J7050; P9040

== ENCOUNTER 2021-07-26 06:33 | Outpatient (RCR) | payer MEDICARE, MEDICAID, SELFPAY ==
[2021-07-03] VITALS (9 sets, daily range): BP systolic 117–140; BP diastolic 48–70; PULSE 66–88; RESP 18–20; TEMP 36.6–37.2; O2SAT 97–99
[2021-07-03] MEDS: alteplase 1 mg/mL SDV 2 mL 2 MG IV (09:30)
[2021-07-03 09:37] LABS: Basophils % 0.3 %; Eosinophils % 0.8 %; Lymphocytes # 1.2 10^3/uL (0.8-4.8); Lymphocytes % 32.8 %; Mean Corpuscular HGB Conc 31.8 g/dL (30.0-36.0); Mean Corpuscular Hemoglobin 34.6 pg (28.0-34.0); Mean Corpuscular Volume 108.9 fl (81-99); Mean Platelet Volume 11.2 fL (7.4-10.4); Monocytes # 0.8 10^3/uL (0.2-0.9); Monocytes % 21.4 %; Neutrophils # 1.57 10^3/uL (1.8-7.7); Neutrophils % 41.5 %; Nucleated Red Blood Cells % 1.1 %; Platelet Count 63 10^3/cmm (130-400); Red Blood Count 1.79 10^6/uL (4.1-5.3); Red Cell Distribution Width 25.2 % (12.1-15.1); White Blood Count 3.8 10^3/uL (4.0-10.0)
[2021-07-03 09:40] LABS: Hematocrit 19.5 % (37.0-47.0); Hemoglobin 6.2 g/dL (11.5-15.3)
[2021-07-03 10:04] LABS: Alanine Aminotransferase 16 U/L (0-33); Albumin Level 3.7 g/dL (3.5-5.2); Alkaline Phosphatase 88 IU/L (35-105); Anion Gap 12.8 (5-19); Aspartate Amino Transferase 32 U/L (0-32); Blood Urea Nitrogen 13 mg/dL (8-23); Calcium 8.8 mg/dL (8.5-10.5); Carbon Dioxide 25 mmol/L (22-29); Chloride 106 mmol/L (98-107); Globulin 3.2 g/dL (1.3-4.6); Glucose 107 mg/dL (65-115); Osmolality Calculated 289 mOsm/kg (285-295); Potassium 4.8 mmol/L (3.5-5.1); Sodium 139 mmol/L (136-145); Total Bilirubin 1.4 mg/dL (0.15-1.2); Total Protein 6.9 g/dL (6.6-8.7)
[2021-07-03 10:39] LABS: Reticulocyte % 9.3 % (0.5-2.0)
[2021-07-03 10:55] LABS: Lactate Dehydrogenase 698 U/L (135-214)
[2021-07-03] MEDS: epoetin alfa 40,000 Unit/mL INJ (non-esrd, onc only) 40000 UNIT SUBCUT (11:30)
--- NOTE | 2021-07-04 08:01 | ONC FU_ITS ---
Letha Fountain Progress Note Patient: Shahnaz Harper Unit #: [id number]: 1945 Dicatated By: Letha Fountain N.P.Date of Visit:Jul 03, 2021 Onc MED Follow-up/Prog Note Chief Complaint: Mantle cell lymphoma/llung cancer. History of Present Illness: This is a 76 year-old woman with a history of mantle cell lymphoma. In January 2021 she was found to have metastatic neuroendocrine lung cancer. She has COPD. She had presented in January with left lower back pain and she was found on CT to have a left pleural effusion. She was then seen at the [facility] pulmonary clinic and she underwent thoracentesis on 01/29/2021. The pleural fluid cytology showed malignant cells which were positive for CK7, TTF-1, and MOC-31. They were negative for cyclin D1, CK20, Jorge Luis-EP4, calretinin, CD20, and CD3. On further analysis, there was positive staining for synaptophysin with negative p40 and Napsin, supporting a neuroendocrine carcinoma. 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 The sample was insufficient for assessment of PD-L1 expression. She had further staging with PET/CT on 02/24/2021. That study showed an FDG avid solid lesion in the medial left lower lobe measuring 3.4 x 3.2 cm, SUV 12.4, strongly consistent with malignancy. Multiple FDG positive left hemithorax pleural plaques are also consistent with malignancy. Malignant nodes were present in the left hilum and prevascular territories. There was evidence of metastatic disease in the right and left hepatic lobes and there was malignant adenopathy in the retrocaval and peripancreatic regions. Also noted were multiple sites of osseous metastatic disease. She was referred to Dr. Santillan for consideration of chest tube placement in the left pleural cavity, but he recommended against it because the effusion appeared to be loculated. In the meantime, she had further evaluation with next generation sequencing study. 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 Multiple other mutations were noted, none of which were actionable. On 03/05/2020 when she was seen for a follow-up visit to discuss further treatment. She opted to proceed with a trial of combined chemotherapy/immunotherapy. Based on the neuroendocrine differentiation, I recommended carboplatin/etoposide in combination with atezolizumab. She then underwent placement of Port-A-Cath venous access device on 03/14/2021. Her further treatment was then delayed due to COVID 19 virus infection/pneumonia, for she was admitted to the hospital with respiratory failure on 03/19/2021. She was discharged home on 03/28/2021. Her medical history is otherwise significant for mantle cell lymphoma, initially diagnosed in May 2009. She was treated with R- hyperCVAD chemotherapy with good clinical response. She completed 6 cycles of treatment as of September 2009. A PET/CT at that point showed a residual 3 cm mass at the celiac access as well as 4 residual cystic masses within the spleen, but these all showed just low-grade FDG uptake. She was then followed on expectant management. During her followup she continued to have a mild thrombocytopenia, but there was no evidence of recurrence/progression of the lymphoma. Her other medical illnesses include COPD, hypertension, chronic kidney disease, GERD, multinodular goiter, obstructive sleep apnea, and degenerative arthritis. She has a history of pulmonary embolism. She underwent right hemithyroidectomy in 2010. She had several polyps removed by colonoscopy in June 2012. She had a pretty severe episode of pneumonia in September 2012. She had a repeat EGD and colonoscopy in January 2019. The only significant finding apparently was gastritis. She had smoked in the past, but she quit in 2008. INTERIM HISTORY: She began cycle 1 of carboplatin/etopside/acetolizumab on 04/10/2021. She tolerated without acute toxicity. She was anemic at baseline, hemoglobin 9.4 g. During subsequent follow-up she became severely neutropenic, requiring growth factor support with G-CSF. She also required PRBC transfusion. She remained afebrile on antibiotic coverage with Levaquin. She continued with cycle 2 on 05/08/2021. It was administered with Neulasta prophylactically. She again required PRBC transfusion, but her other blood counts remained adequate. Her restaging chest CT on 05/16/2021 showed improvement in the pleural-based noncalcified plaques in lobulations. There was just a small amount of residual fluid at the lung bases. There were just small lymph nodes noted within the anterior mediastinum. Numerous low-attenuation lesions were noted throughout the liver and several low-attenuation lesions were noted within the spleen. Overall, there was significant improvement noted in the left lower lobe mass and pleural thickening, consistent with treatment response. Patient today for follow-up. She states she is feeling better than last week. She received a blood transfusion last week for anemia. Her hemoglobin is 6.2 today which patient states is surprising because she does not feel that bad. She denies nausea vomiting. She denies cough is have some mild shortness of breath upon exertion. She currently wears oxygen at 2 L per nasal cannula. She denies any problems with her bowels or bladder. She has occasional joint pain related to arthritis. She does experience some numbness and tingling in her hands. Review Of Symptoms:See above. Past Medical History: Chronic kidney disease Chronic obstructive pulmonary disease Degenerative arthritis Gastroesophageal reflux disease History of pulmonary embolism Hypertension Mantle cell lymphoma Multinodular goiter Obstructive sleep apnea Covid virus in 2020 Past Surgical History: Bone marrow aspiration Covid vaccine #2 in 2020 Covid vaccine #1 in 2020 Cholecystectomy in 2014 Fluzone Injection in 2011 - Fluzone mutli gardner vial .5ml dose IM LUE Zostavax Injection in 2011 - Zostavax Inj single dose vial. 0.65 ml SC LUE Right hemithyroidectomy in 2010 Bone marrow biopsy in 2009 Caesarean section in 1988 Allergies: PENICILLIN Medications: Charity 180 mg - Take 1 Tablet Oral daily AmLODIPine Besylate 1 (10 mg) Tablet Oral daily Benefiber 2 tsp Powder Oral every am Cholecalciferol 1 (1000 Units) Capsule Oral every am Famotidine 1 Tablet (of 40 mg) Oral daily Glucosamine Chondr 1500 Complx 1 Capsule Oral daily HydrALAZINE HCl 1 (50 mg) Tablet Oral b.i.d. Losartan Potassium 1 (50 mg) Tablet Oral b.i.d. Metoprolol Succinate ER 1 (50 mg) Tablet SR 24 HR Oral every am Nitroglycerin Tablet, sublingual Sublingual PRN oxygen 1 (2 L) Aerosol at bedtime Polyethylene Glycol 1 Packet Powder daily Protonix 1 (40 mg) Tablet, enteric coated Oral daily Spiriva Respimat 1 (1.25 mcg/act) Aerosol, solution Inhalation daily Synthroid 1 (75 mcg) Tablet Oral daily Xopenex Nebulization solution Inhalation PRN Zocor 1 (10 mg) Tablet Oral daily Family History: His sister of renal cell cancer at age 52. Her mother had diabetes and renal failure. She of stroke at age 72. Father with heart attack at age 80. Another sister and a brother also have diabetes. Social History: Ms. Harper is and she is retired. Ms. Harper no longer smokes. She drinks occasionally. She has indicated exposure to the following products: cigarettes. She has a history of smoking 1/2 pack of cigarettes daily for 40 years. She quit smoking in 2008. She has had only rare alcohol use. Physical Examination: Performed on Jul 03, 2021 11:06: Height - 64.00 in, Temperature - 98.4 F, Pulse - 76 /min, Respiration - 16 /min, BP - 149/71 mm(hg) (HIGH), O2 Sat - 97 %, Pain - 0, and Fatigue - 6. Performance Status: 1 - No physically strenuous activity, but ambulatory and able to carry out light or sedentary work (e.g. office work, light house work). (ECOG) Constitutional Alert, cooperative, oriented. Mood and affect appropriate. Appears close to chronological age. Well nourished. Well developed. Head Normocephalic; no scars. Respiratory Diminished breath sounds left lower lung field. Cardiovascular Regular rate and rhythm of heart without murmurs, gallops or rubs. Abdomen Non-tender, non-distended, no masses, ascites or hepatosplenomegaly. Good bowel sounds. No guarding or rebound tenderness. Extremities No visible deformities, no cyanosis, clubbing or edema. Pulses 3+ and equal bilaterally. Musculoskeletal No tenderness or swelling, normal range of motion. Generalized weakness Psychiatric Alert and oriented times three. Coherent speech. Verbalizes understanding of our discussions today. Laboratory: Test performed on Jul 03, 2021 10:28 LDH (Total) 698 U/L Retic Count % 9.3 % Test performed on Jul 03, 2021 09:20 Sodium 139 mmol/L Potassium 4.8 mmol/L Chloride 106 mmol/L CO2 25 mmol/L Anion Gap 12.8 BUN 13 mg/dL Creatinine 1.0 mg/dL Cr Clearance (Est) 65.0300 mL/min Glucose 107 mg/dL Osmolality - Calculated 289 mOsm/kg Calcium 8.8 mg/dL Protein, Total 6.9 g/dL Albumin 3.7 g/dL Globulin 3.2 g/dL Bilirubin, Total 1.4 mg/dL ALT (SGPT) 16 U/L AST (SGOT) 32 U/L Alkaline Phosphatase 88 IU/L WBC 3.8 10 3/uL RBC 1.79 10 6/uL HGB 6.2 g/dL HCT 19.5 % MCV 108.9 fl MCH 34.6 pg MCHC 31.8 g/dL RDW 25.2 % Platelet Count 63 10 3/cmm MPV 11.2 fL Neutrophils 1.57 10 3/uL Lymphocytes 1.2 10 3/uL Monocytes 0.8 10 3/uL Eosinophils 0.0 10 3/uL Basophils 0.0 10 3/uL Neutrophil % 41.5 % Lymphocyte % 32.8 % Monocyte % 21.4 % Eosinophil % 0.8 % Basophils % 0.3 % NRBC % 1.1 % Irradiated Red Blood Cells [id number] AP RCI XM COMPATIBLE Anti-D Positive Blood Type AP Antibody Screen (Gel) NEGATIVE Test performed on Jun 20, 2021 16:21 Ua Color Colorless Ua Appearance Clear Ua Glucose Norm Ua Bilirubin Neg Ua Ketones Negative Ua Specific [place] 1.010 Ua Blood Neg Ua pH 5 Ua Protein Neg Ua Nitrites Negative Ua Leukocyte Esterase Negative Test performed on Jun 19, 2021 12:05 Erythropoietin 67.9 mIU/mL Test performed on Jun 19, 2021 10:30 Antibody ID CAA Test performed on Jun 19, 2021 10:20 TSH 1.25 uIU/mL CBC Slide Review Slide Review Perform SLIDE REVIEW AGREES WITH AUTOMATED RESULTS ST Test performed on Jun 13, 2021 16:15 Ua Urobilinogen 4 mg/dL Ua Micro: Amorph Sediment 1+ /hpf Ua Micro: WBC RARE /hpf Urine Culture CC 100 CFU/ml Ua Micro: RBC 0-4 /hpf Ua Micro: Squam Epith Cells 5-10 /hpf Ua Micro: Bacteria TRACE /hpf Test performed on Jun 12, 2021 13:45 Manual Segs % 49 % Manual Bands % 12.0 % Manual Lymphs % 25 % Atypical Lymphs % 0.0 % Total Cells Counted 100 Manual Monos % 11.0 % Manual Eos % 0 % Manual Basos % 0.0 % Metamyelocytes % 3.0 % Poikilocytosis 1+ Tear Drop Cells 1+ Platelet Estimate Decreased Platelets, Giant Trace Manual Segs Abs 2.5 10/cmm Manual Bands Abs 0.6 10 3/cmm Manual Neutrophils Abs 3.1 10 3/cmm Manual Lymphocytes Abs 1.3 10 3/cmm Manual Monocytes Abs 0.6 10 3/cmm Manual Eosinophils Abs 0.0 10 3/cmm Manual Basophils Abs 0.0 10 3/cmm Test performed on May 01, 2021 08:20 Anisocytosis 1+ Stomatocytes Trace Test performed on Jan 15, 2021 09:05 D-Dimer 3.39 mcg/mL Test performed on Jan 15, 2021 00:00 Cholesterol, Total 90 mg/dL T4 1.5 mcg/dL HDL Cholesterol 43 mg/dL LDL Cholesterol 31 mg/dL VLDL Cholesterol 16 mg/dL Triglycerides 77 mg/dL Sed Rate 11 mm/hr Impression: 1. Metastatic neuroendocrine lung cancer with PET/CT evidence of primary tumor in the medial left lower lobe, TNM stage IVB (T2a, N2, M1c). There was associated malignant pleural effusion and there were multiple sites of metastatic involvement by PET/CT, including multiple hepatic metastases and multiple sites of metastatic bone involvement. 2. She has a history of mantle cell lymphoma with bulky retroperitoneal adenopathy and involvement in the spleen at initial diagnosis in May 2009. She has been in sustained remission following treatment with 6 cycles of N-crxme-SBVI chemotherapy, which she completed in September 2009. 3. She has had a mild to moderately severe thrombocytopenia following completion of the chemotherapy. 4. Hypertension. 5. Stage III chronic kidney disease. 6. GERD. 7. COPD. 8. Obstructive sleep apnea. 9. Degenerative arthritis. 10. Multinodular goiter. 11. History of pulmonary embolism. Plan: 1. Patient with metastatic neuroendocrine lung cancer with PET/CT evidence of primary tumor in the medial left lower lobe, TNM stage IVB (T2a, N2, M1c). There was associated malignant pleural effusion and there were multiple sites of metastatic involvement by PET/CT, including multiple hepatic metastases and multiple sites of metastatic bone involvement. Her next generation sequencing showed presence of a PIK3CA mutation. There were no other actionable mutations. Her biopsy sample was insufficient for assessment of PD-L1 expression. She opted to proceed with a trial of systemic therapy with carboplatin/etoposide chemotherapy in combination with atezolizumab. Her treatment was delayed due to a hospitalization for COVID-19 virus infection/pneumonia with acute respiratory failure. She then began cycle 1 of carboplatin/etoposide/atezolizumab on 04/10/2021. The treatment was complicated by severe neutropenia and anemia. She required growth factor support with G-CSF and she required PRBC transfusion. She had uneventful recovery. She then continued with cycle 2 on 05/08/2021 it was administered with Neulasta prophylactically. She again required PRBC transfusion, but her other blood counts remained adequate and she otherwise tolerated the treatment well. She does appear to be showing response by restaging chest CT. Labs were reviewed with patient her hemoglobin is 6.2 and her hematocrit is 19.5. Once again she will require 2 units of packed red blood cells to be transfused in the a.m. LDH, retic count and haptiglobin have been ordered. She will receive Procrit 40,000 units today and weekly. Treatment will be held today. She will follow-up with Dr. Larios in one week for reevaluation. 2. She has multiple sites of metastatic bone involvement by PET/CT. She has now started on supportive therapy with denosumab. Signed By: Letha Fountain N.P. <<Signature on File>>
[2021-07-04] MEDS: sodium chloride 0.9% 250 ML 999 ML IV (11:00)
[2021-07-04] MEDS: diphenhydrAMINE 25 mg Capsule PO (11:30)
[2021-07-04] MEDS: acetaminophen 325 mg Tablet 650 MG PO (11:30)
[2021-07-04] MEDS: FUROsemide 10 mg/mL SDV 2mL 20 MG IV (13:30)
[2021-07-10 14:09] LABS: Hematocrit 29.2 % (37.0-47.0); Hemoglobin 9.1 g/dL (11.5-15.3); Lymphocytes # 0.5 10^3/uL (0.8-4.8); Lymphocytes % 9.8 %; Mean Corpuscular HGB Conc 31.2 g/dL (30.0-36.0); Mean Corpuscular Hemoglobin 33.7 pg (28.0-34.0); Mean Corpuscular Volume 108.1 fl (81-99); Mean Platelet Volume 10.7 fL (7.4-10.4); Monocytes # 0.3 10^3/uL (0.2-0.9); Monocytes % 5.9 %; Neutrophils # 4.03 10^3/uL (1.8-7.7); Neutrophils % 82.3 %; Nucleated Red Blood Cells % 0 %; Platelet Count 73 10^3/cmm (130-400); Red Cell Distribution Width 22.2 % (12.1-15.1); Reticulocyte % 9.4 % (0.5-2.0); White Blood Count 4.9 10^3/uL (4.0-10.0)
[2021-07-10 14:39] LABS: Alanine Aminotransferase 25 U/L (0-33); Albumin Level 3.9 g/dL (3.5-5.2); Alkaline Phosphatase 78 IU/L (35-105); Anion Gap 12.9 (5-19); Aspartate Amino Transferase 24 U/L (0-32); Blood Urea Nitrogen 23 mg/dL (8-23); Carbon Dioxide 26 mmol/L (22-29); Chloride 103 mmol/L (98-107); Globulin 2.9 g/dL (1.3-4.6); Glucose 147 mg/dL (65-115); Lactate Dehydrogenase 527 U/L (135-214); Osmolality Calculated 290 mOsm/kg (285-295); Potassium 4.9 mmol/L (3.5-5.1); Sodium 137 mmol/L (136-145); Total Bilirubin 0.8 mg/dL (0.15-1.2); Total Protein 6.8 g/dL (6.6-8.7)
[2021-07-10 19:11] LABS: LAB Peripheral Smear Sent for Review
--- NOTE | 2021-07-11 07:02 | ONC FU_ITS ---
Dr. Larios Patient Follow-Up Note Patient: Shahnaz Harper Unit #: [id number]: 1945 Dicatated By: Juan Luis Larios M.D.Date of Visit:Jul 10, 2021 Onc Med Follow-up/Prog Note Chief Complaint: Mantle cell lymphoma/lung cancer. History of Present Illness: This is a 76 year-old woman with a history of mantle cell lymphoma. In January 2021 she was found to have metastatic neuroendocrine lung cancer. She has COPD. She had presented in January with left lower back pain and she was found on CT to have a left pleural effusion. She was then seen at the [facility] pulmonary clinic and she underwent thoracentesis on 01/29/2021. The pleural fluid cytology showed malignant cells which were positive for CK7, TTF-1, and MOC-31. They were negative for cyclin D1, CK20, Jorge Luis-EP4, calretinin, CD20, and CD3. On further analysis, there was positive staining for synaptophysin with negative p40 and Napsin, supporting a neuroendocrine carcinoma. 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 The sample was insufficient for assessment of PD-L1 expression. She had further staging with PET/CT on 02/24/2021. That study showed an FDG avid solid lesion in the medial left lower lobe measuring 3.4 x 3.2 cm, SUV 12.4, strongly consistent with malignancy. Multiple FDG positive left hemithorax pleural plaques are also consistent with malignancy. Malignant nodes were present in the left hilum and prevascular territories. There was evidence of metastatic disease in the right and left hepatic lobes and there was malignant adenopathy in the retrocaval and peripancreatic regions. Also noted were multiple sites of osseous metastatic disease. She was referred to Dr. Santillan for consideration of chest tube placement in the left pleural cavity, but he recommended against it because the effusion appeared to be loculated. In the meantime, she had further evaluation with next generation sequencing study. 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 Multiple other mutations were noted, none of which were actionable. On 03/05/2020 when she was seen for a follow-up visit to discuss further treatment. She opted to proceed with a trial of combined chemotherapy/immunotherapy. Based on the neuroendocrine differentiation, I recommended carboplatin/etoposide in combination with atezolizumab. She then underwent placement of Port-A-Cath venous access device on 03/14/2021. Her further treatment was then delayed due to COVID 19 virus infection/pneumonia, requiring hospital admission for respiratory failure on 03/19/2021. She was discharged home on 03/28/2021. Her medical history is otherwise significant for mantle cell lymphoma, initially diagnosed in May 2009. She was treated with R- hyperCVAD chemotherapy with good clinical response. She completed 6 cycles of treatment as of September 2009. A PET/CT at that point showed a residual 3 cm mass at the celiac access as well as 4 residual cystic masses within the spleen, but these all showed just low-grade FDG uptake. She was then followed on expectant management. During her followup she continued to have a mild thrombocytopenia, but there was no evidence of recurrence/progression of the lymphoma. Her other medical illnesses include COPD, hypertension, chronic kidney disease, GERD, multinodular goiter, obstructive sleep apnea, and degenerative arthritis. She has a history of pulmonary embolism. She underwent right hemithyroidectomy in 2010. She had several polyps removed by colonoscopy in June 2012. She had a pretty severe episode of pneumonia in September 2012. She had a repeat EGD and colonoscopy in January 2019. The only significant finding apparently was gastritis. She had smoked in the past, but she quit in 2008. INTERIM HISTORY: She began cycle 1 of carboplatin/etopside/atezolizumab on 04/10/2021. She tolerated without acute toxicity. She was anemic at baseline, hemoglobin 9.4 g. During subsequent follow-up she became severely neutropenic, requiring growth factor support with G-CSF. She also required PRBC transfusion. She remained afebrile on antibiotic coverage with Levaquin. She continued with cycle 2 on 05/08/2021. It was administered with Neulasta prophylactically. She again required PRBC transfusion, but her other blood counts remained adequate. Her restaging chest CT on 05/16/2021 showed improvement in the pleural-based noncalcified plaques in lobulations. There was just a small amount of residual fluid at the lung bases. There were just small lymph nodes noted within the anterior mediastinum. Numerous low-attenuation lesions were noted throughout the liver and several low-attenuation lesions were noted within the spleen. Overall, there was significant improvement noted in the left lower lobe mass and pleural thickening, consistent with treatment response. She was able to proceed with her 3rd cycle of treatment on 05/29/2021, but she required PRBC transfusion at day 8 with her hemoglobin decreased to 7.4 g. Despite the transfusion, there was further decline in her hemoglobin to 6.0 g at day 15, and as of 07/03/2021 it was still low at 6.2 g/dL despite having been given another 2 units PRBC. Her further laboratory evaluation at that time showed evidence of autoimmune hemolytic anemia with an uncorrected reticulocyte count of 9.3%, haptoglobin low at 10 mg/L, LDH elevated at 698/214 U/L, and KATHIA positive for a complement fixing autoantibody. She was transfused again, but at that point she also began on steroid therapy with prednisone 60 mg twice daily. Her chemotherapy remained on hold. She has seen for a follow-up visit. She has been feeling better since starting on the prednisone with improved energy and activity tolerance. Her ECOG score is 1. Her appetite is too good . She has not had fever. She has had some sweating at night. She complains that her nose always runs. She has not had sore mouth or throat. She has just occasional cough. Her breathing has been okay on oxygen. She has not been having chest pain. She always has problems with acid reflux. She has no other GI or complaints. She does have some joint pain, that has improved somewhat on the prednisone. She has headache when her oxygen level is low. She does not complain of dizziness, and she has no focal neurologic symptoms. Medications: Charity 180 mg - Take 1 Tablet Oral daily, AmLODIPine Besylate 1 (10 mg) Tablet Oral daily, Benefiber 2 tsp Powder Oral every am, Cholecalciferol 1 (1000 Units) Capsule Oral every am, Famotidine 1 Tablet (of 40 mg) Oral daily, Folic Acid 1 Tablet (of 1 mg) Oral daily, Glucosamine Chondr 1500 Complx 1 Capsule Oral daily, HydrALAZINE HCl 1 (50 mg) Tablet Oral b.i.d., Losartan Potassium 1 (50 mg) Tablet Oral b.i.d., Metoprolol Succinate ER 1 (50 mg) Tablet SR 24 HR Oral every am, Nitroglycerin Tablet, sublingual Sublingual PRN, oxygen 1 (2 L) Aerosol at bedtime, Polyethylene Glycol 1 Packet Powder daily, predniSONE 3 Tablet (of 20 mg) Oral b.i.d., Protonix 1 (40 mg) Tablet, enteric coated Oral daily, Spiriva Respimat 1 (1.25 mcg/act) Aerosol, solution Inhalation daily, Synthroid 1 (75 mcg) Tablet Oral daily, Xopenex Nebulization solution Inhalation PRN, Zocor 1 (10 mg) Tablet Oral daily Allergies: PENICILLIN Vital Signs: Performed on Jul 10, 2021 15:32 Height - 64.00 in Weight - 199.0 lbs (HIGH) BSA - 1.95 sq.m BMI - 34.16 (HIGH) Temperature - 97.8 F (LOW) Pulse - 81 /min Respiration - 18 /min BP - 166/89 mm(hg) (HIGH) O2 Sat - 95 % (LOW) Pain - 1 Fatigue - 0 Physical Examination: Constitutional - She looks a little better generally, Eyes - Sclerae nonicteric. Conjunctivae clear, ENMT - No lesions noted in the oral cavity, Hematologic/Lymphatic - No cervical, clavicular, or axillary adenopathy, Respiratory - Lungs sound clear with diminished air movement bilaterally, Cardiovascular - Heart rhythm is regular. There is no murmur, gallop, or rub noted, Abdomen - Soft. Liver and spleen are not enlarged. There is no abdominal mass or ascites noted and there is no inguinal adenopathy, Extremities - No edema, Neurologic - No focal neurologic deficits. Lab/Imaging: Test performed on Jul 10, 2021 14:00 LDH (Total) 527 U/L Sodium 137 mmol/L Potassium 4.9 mmol/L Chloride 103 mmol/L CO2 26 mmol/L Anion Gap 12.9 BUN 23 mg/dL Creatinine 0.9 mg/dL Cr Clearance (Est) 78.15 mL/min Glucose 147 mg/dL Osmolality - Calculated 290 mOsm/kg Calcium 8.0 mg/dL Protein, Total 6.8 g/dL Albumin 3.9 g/dL Globulin 2.9 g/dL Bilirubin, Total 0.8 mg/dL ALT (SGPT) 25 U/L AST (SGOT) 24 U/L Alkaline Phosphatase 78 IU/L Retic Count % 9.4 % WBC 4.9 10 3/uL RBC 2.70 10 6/uL HGB 9.1 g/dL HCT 29.2 % MCV 108.1 fl MCH 33.7 pg MCHC 31.2 g/dL RDW 22.2 % Platelet Count 73 10 3/cmm MPV 10.7 fL Neutrophils 4.03 10 3/uL Lymphocytes 0.5 10 3/uL Monocytes 0.3 10 3/uL Eosinophils 0.0 10 3/uL Basophils 0.0 10 3/uL Neutrophil % 82.3 % Lymphocyte % 9.8 % Monocyte % 5.9 % Eosinophil % 0.0 % Basophils % 0.0 % NRBC % 0 % Problem List: 1. Metastatic neuroendocrine lung cancer with PET/CT evidence of primary tumor in the medial left lower lobe, TNM stage IVB (T2a, N2, M1c). There was associated malignant pleural effusion and there were multiple sites of metastatic involvement by PET/CT, including multiple hepatic metastases and multiple sites of metastatic bone involvement. 2. She has a history of mantle cell lymphoma with bulky retroperitoneal adenopathy and involvement in the spleen at initial diagnosis in May 2009. She has been in sustained remission following treatment with 6 cycles of [id number] chemotherapy, which she completed in September 2009. 3. She has had a mild to moderately severe thrombocytopenia following completion of the chemotherapy. 4. Hypertension. 5. Stage III chronic kidney disease. 6. GERD. 7. COPD. 8. Obstructive sleep apnea. 9. Degenerative arthritis. 10. Multinodular goiter. 11. History of pulmonary embolism. Problems Addressed with this Encounter and Plan: 1. Patient with metastatic neuroendocrine lung cancer with PET/CT evidence of primary tumor in the medial left lower lobe, TNM stage IVB (T2a, N2, M1c). There was associated malignant pleural effusion and there were multiple sites of metastatic involvement by PET/CT, including multiple hepatic metastases and multiple sites of metastatic bone involvement. Her next generation sequencing showed presence of a PIK3CA mutation. There were no other actionable mutations. Her biopsy sample was insufficient for assessment of PD-L1 expression. She opted to proceed with a trial of systemic therapy with carboplatin/etoposide chemotherapy in combination with atezolizumab. Her treatment was delayed due to a hospitalization for COVID-19 virus infection/pneumonia with acute respiratory failure. She then began cycle 1 of carboplatin/etoposide/atezolizumab on 04/10/2021. The treatment was complicated by severe neutropenia and anemia. She required growth factor support with G-CSF and she required PRBC transfusion. She had uneventful recovery. She then continued with cycle 2 on 05/08/2021, administered with Neulasta prophylactically. She again required PRBC transfusion, but her other blood counts remained adequate and she otherwise tolerated the treatment well. She appeared to be showing response by restaging chest CT, and she continued with cycle 3 on 05/29/2021. Her further clinical course was uncomplicated by worsening anemia. 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 She began treatment with prednisone 60 mg twice daily, and she does appear to be showing some response with her hemoglobin now back up to 9.1 g. The underlying cause for the hemolytic anemia is uncertain, but it would most likely be due to the atezolizumab. For now she will continue on prednisone, I will reduce the dosage to 60 mg daily. Her chemotherapy will remain on hold. She will be scheduled for a repeat CBC in 1 week and for a follow-up visit in 2 weeks. 2. She has multiple sites of metastatic bone involvement by PET/CT. She had started on supportive therapy with denosumab. It is temporarily on hold. Signed By: Juan Luis Larios M.D. <<Signature on File>>
[2021-07-17 15:54] LABS: Alanine Aminotransferase 31 U/L (0-33); Albumin Level 3.7 g/dL (3.5-5.2); Alkaline Phosphatase 75 IU/L (35-105); Aspartate Amino Transferase 27 U/L (0-32); Blood Urea Nitrogen 17 mg/dL (8-23); Calcium 7.4 mg/dL (8.5-10.5); Carbon Dioxide 23 mmol/L (22-29); Chloride 102 mmol/L (98-107); Globulin 1.7 g/dL (1.3-4.6); Glucose 184 mg/dL (65-115); Osmolality Calculated 286 mOsm/kg (285-295); Sodium 135 mmol/L (136-145); Total Bilirubin 1.2 mg/dL (0.15-1.2); Total Protein 5.4 g/dL (6.6-8.7)
[2021-07-17 17:07] LABS: Basophils % 0.1 %; Hematocrit 30.3 % (37.0-47.0); Hemoglobin 9.7 g/dL (11.5-15.3); Lymphocytes # 0.3 10^3/uL (0.8-4.8); Lymphocytes % 3.6 %; Mean Corpuscular Volume 106.3 fl (81-99); Mean Platelet Volume 12.9 fL (7.4-10.4); Monocytes # 0.3 10^3/uL (0.2-0.9); Monocytes % 3.9 %; Neutrophils % 91.8 %; Nucleated Red Blood Cells % 0 %; Platelet Count 65 10^3/cmm (130-400); Red Blood Count 2.85 10^6/uL (4.1-5.3); Red Cell Distribution Width 18.3 % (12.1-15.1); White Blood Count 8.4 10^3/uL (4.0-10.0)
[2021-07-26 08:50] LABS: Eosinophils % 0.4 %; Hematocrit 27.8 % (37.0-47.0); Hemoglobin 8.7 g/dL (11.5-15.3); Lymphocytes # 0.5 10^3/uL (0.8-4.8); Lymphocytes % 6.6 %; Mean Corpuscular HGB Conc 31.3 g/dL (30.0-36.0); Mean Corpuscular Hemoglobin 33.3 pg (28.0-34.0); Mean Corpuscular Volume 106.5 fl (81-99); Mean Platelet Volume 11.5 fL (7.4-10.4); Monocytes # 0.4 10^3/uL (0.2-0.9); Monocytes % 5.5 %; Neutrophils # 6.28 10^3/uL (1.8-7.7); Neutrophils % 86.9 %; Nucleated Red Blood Cells % 0 %; Platelet Count 67 10^3/cmm (130-400); Red Blood Count 2.61 10^6/uL (4.1-5.3); Red Cell Distribution Width 16.5 % (12.1-15.1); White Blood Count 7.2 10^3/uL (4.0-10.0)
[2021-07-26 08:51] LABS: Reticulocyte % 2.6 % (0.5-2.0)
[2021-07-26 09:33] LABS: Alanine Aminotransferase 33 U/L (0-33); Albumin Level 3.3 g/dL (3.5-5.2); Alkaline Phosphatase 85 IU/L (35-105); Aspartate Amino Transferase 31 U/L (0-32); Blood Urea Nitrogen 24 mg/dL (8-23); Calcium 8.2 mg/dL (8.5-10.5); Carbon Dioxide 26 mmol/L (22-29); Chloride 104 mmol/L (98-107); Globulin 2.6 g/dL (1.3-4.6); Glucose 132 mg/dL (65-115); Osmolality Calculated 292 mOsm/kg (285-295); Sodium 138 mmol/L (136-145); Total Bilirubin 0.7 mg/dL (0.15-1.2); Total Protein 5.9 g/dL (6.6-8.7)
[2021-07-26 09:37] LABS: Anion Gap 12.7 (5-19); Haptoglobin < 10.0 mg/L (30-200); Lactate Dehydrogenase 441 U/L (135-214); Potassium 4.7 mmol/L (3.5-5.1)
--- NOTE | 2021-07-27 08:46 | ONC FU_ITS ---
Dr. Larios Patient Follow-Up Note Patient: Shahnaz Harper Unit #: [id number]: 1945 Dicatated By: Juan Luis Larios M.D.Date of Visit:Jul 26, 2021 Onc Med Follow-up/Prog Note Chief Complaint: Mantle cell lymphoma/lung cancer. History of Present Illness: This is a 76 year-old woman with a history of mantle cell lymphoma. In January 2021 she was found to have metastatic neuroendocrine lung cancer. She has COPD. She had presented in January with left lower back pain and she was found on CT to have a left pleural effusion. She was then seen at the [facility] pulmonary clinic and she underwent thoracentesis on 01/29/2021. The pleural fluid cytology showed malignant cells which were positive for CK7, TTF-1, and MOC-31. They were negative for cyclin D1, CK20, Jorge Luis-EP4, calretinin, CD20, and CD3. On further analysis, there was positive staining for synaptophysin with negative p40 and Napsin, supporting a neuroendocrine carcinoma. 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 The sample was insufficient for assessment of PD-L1 expression. She had further staging with PET/CT on 02/24/2021. That study showed an FDG avid solid lesion in the medial left lower lobe measuring 3.4 x 3.2 cm, SUV 12.4, strongly consistent with malignancy. Multiple FDG positive left hemithorax pleural plaques are also consistent with malignancy. Malignant nodes were present in the left hilum and prevascular territories. There was evidence of metastatic disease in the right and left hepatic lobes and there was malignant adenopathy in the retrocaval and peripancreatic regions. Also noted were multiple sites of osseous metastatic disease. She was referred to Dr. Santillan for consideration of chest tube placement in the left pleural cavity, but he recommended against it because the effusion appeared to be loculated. In the meantime, she had further evaluation with next generation sequencing study. It did show presence of a PIK3CA [id number] mutation. Multiple other mutations were noted, none of which were actionable. On 03/05/2020 when she was seen for a follow-up visit to discuss further treatment. She opted to proceed with a trial of combined chemotherapy/immunotherapy. Based on the neuroendocrine differentiation, I recommended carboplatin/etoposide in combination with atezolizumab. She then underwent placement of Port-A-Cath venous access device on 03/14/2021. Her further treatment was then delayed due to COVID 19 virus infection/pneumonia, requiring hospital admission for respiratory failure on 03/19/2021. She was discharged home on 03/28/2021. Her medical history is otherwise significant for mantle cell lymphoma, initially diagnosed in May 2009. She was treated with R- hyperCVAD chemotherapy with good clinical response. She completed 6 cycles of treatment as of September 2009. A PET/CT at that point showed a residual 3 cm mass at the celiac access as well as 4 residual cystic masses within the spleen, but these all showed just low-grade FDG uptake. She was then followed on expectant management. During her followup she continued to have a mild thrombocytopenia, but there was no evidence of recurrence/progression of the lymphoma. Her other medical illnesses include COPD, hypertension, chronic kidney disease, GERD, multinodular goiter, obstructive sleep apnea, and degenerative arthritis. She has a history of pulmonary embolism. She underwent right hemithyroidectomy in 2010. She had several polyps removed by colonoscopy in June 2012. She had a pretty severe episode of pneumonia in September 2012. She had a repeat EGD and colonoscopy in January 2019. The only significant finding apparently was gastritis. She had smoked in the past, but she quit in 2008. INTERIM HISTORY: She began cycle 1 of carboplatin/etopside/atezolizumab on 04/10/2021. She tolerated without acute toxicity. She was anemic at baseline, hemoglobin 9.4 g. During subsequent follow-up she became severely neutropenic, requiring growth factor support with G-CSF. She also required PRBC transfusion. She remained afebrile on antibiotic coverage with Levaquin. She continued with cycle 2 on 05/08/2021. It was administered with Neulasta prophylactically. She again required PRBC transfusion, but her other blood counts remained adequate. Her restaging chest CT on 05/16/2021 showed improvement in the pleural-based noncalcified plaques in lobulations. There was just a small amount of residual fluid at the lung bases. There were just small lymph nodes noted within the anterior mediastinum. Numerous low-attenuation lesions were noted throughout the liver and several low-attenuation lesions were noted within the spleen. Overall, there was significant improvement noted in the left lower lobe mass and pleural thickening, consistent with treatment response. She was able to proceed with her 3rd cycle of treatment on 05/29/2021, but she required PRBC transfusion at day 8 with her hemoglobin decreased to 7.4 g. Despite the transfusion, there was further decline in her hemoglobin to 6.0 g at day 15, and as of 07/03/2021 it was still low at 6.2 g/dL despite having been given another 2 units PRBC. Her further laboratory evaluation at that time showed evidence of autoimmune hemolytic anemia with an uncorrected reticulocyte count of 9.3%, haptoglobin low at 10 mg/L, LDH elevated at 698/214 U/L, and KATHIA positive for a complement fixing autoantibody. She was transfused again, but at that point she also began on steroid therapy with prednisone 60 mg twice daily. Her chemotherapy remained on hold. During subsequent follow-up her hemoglobin stabilized, and the prednisone dosage was reduced to 60 mg daily. She is seen for a follow-up visit. She has had better energy since she is been on the prednisone, and she is doing light work. ECOG score is 1. She has good appetite. She has no fever or night sweats. Recently she has been having pain in her left ear. She says she always has sinus drainage. She has not had sore mouth or throat. She has cough productive of yellow sputum. Her breathing has been a little bit worse the past 2 days. She is on continuous oxygen. She recently had some vomiting and diarrhea, attributable to stomach flu. That has all resolved. She currently has no GI or complaints. She has pain in her neck and left shoulder area. She does not complain of headache. She has had a recent episode of dizziness. Her numbness/tingling has improved since she has been on the steroid. Medications: Charity 180 mg - Take 1 Tablet Oral daily, AmLODIPine Besylate 1 (10 mg) Tablet Oral daily, Cholecalciferol 1 (1000 Units) Capsule Oral every am, Famotidine 1 Tablet (of 40 mg) Oral daily, Folic Acid 1 Tablet (of 1 mg) Oral daily, Glucosamine Chondr 1500 Complx 1 Capsule Oral daily, HydrALAZINE HCl 1 (50 mg) Tablet Oral b.i.d., Losartan Potassium 1 (50 mg) Tablet Oral b.i.d., Metoprolol Succinate ER 1 (50 mg) Tablet SR 24 HR Oral every am, Nitroglycerin Tablet, sublingual Sublingual PRN, oxygen 1 (2 L) Aerosol at bedtime, Polyethylene Glycol 1 Packet Powder daily, predniSONE 3 Tablet (of 20 mg) Oral daily, Protonix 1 (40 mg) Tablet, enteric coated Oral daily, Spiriva Respimat 1 (1.25 mcg/act) Aerosol, solution Inhalation daily, Synthroid 1 (75 mcg) Tablet Oral daily, Xopenex Nebulization solution Inhalation PRN, Zocor 1 (10 mg) Tablet Oral daily Allergies: PENICILLIN Vital Signs: Performed on Jul 26, 2021 10:50 Height - 64.00 in BP - 161/72 mm(hg) (HIGH) Performed on Jul 26, 2021 10:49 Height - 64.00 in Weight - 203.6 lbs (HIGH) BSA - 1.97 sq.m BMI - 34.95 (HIGH) Temperature - 98.6 F Pulse - 98 /min Respiration - 20 /min BP - 177/68 mm(hg) (HIGH) O2 Sat - 94 % (LOW) Pain - 2 Fatigue - 2 Physical Examination: Constitutional - She appears somewhat weak generally. She is mildly cushinoid, Eyes - Sclerae nonicteric. Conjunctivae clear, ENMT - No lesions noted in the oral cavity. There does appear to be fluid behind the left tympanic membrane, but it does not appear red or noninflamed, Hematologic/Lymphatic - No cervical, clavicular, or axillary adenopathy, Respiratory - Lungs show diminished air movement with somewhat coarse breath sounds bilaterally, Cardiovascular - Heart rhythm is regular. There is no murmur, gallop, or rub noted, Abdomen - Soft. Liver and spleen are not enlarged. There is no abdominal mass or ascites noted and there is no inguinal adenopathy, Extremities - There is mild lower extremity edema, mainly on the right, Neurologic - No focal neurologic deficits. Lab/Imaging: Test performed on Jul 26, 2021 08:39 LDH (Total) 441 U/L Sodium 138 mmol/L Potassium 4.7 mmol/L Chloride 104 mmol/L CO2 26 mmol/L Anion Gap 12.7 BUN 24 mg/dL Creatinine 0.8 mg/dL Cr Clearance (Est) 89.95 mL/min Glucose 132 mg/dL Osmolality - Calculated 292 mOsm/kg Calcium 8.2 mg/dL Protein, Total 5.9 g/dL Albumin 3.3 g/dL Globulin 2.6 g/dL Bilirubin, Total 0.7 mg/dL ALT (SGPT) 33 U/L AST (SGOT) 31 U/L Alkaline Phosphatase 85 IU/L Retic Count % 2.6 % WBC 7.2 10 3/uL RBC 2.61 10 6/uL HGB 8.7 g/dL HCT 27.8 % MCV 106.5 fl MCH 33.3 pg MCHC 31.3 g/dL RDW 16.5 % Platelet Count 67 10 3/cmm MPV 11.5 fL Neutrophils 6.28 10 3/uL Lymphocytes 0.5 10 3/uL Monocytes 0.4 10 3/uL Eosinophils 0.0 10 3/uL Basophils 0.0 10 3/uL Neutrophil % 86.9 % Lymphocyte % 6.6 % Monocyte % 5.5 % Eosinophil % 0.4 % Basophils % 0.0 % NRBC % 0 % Problem List: 1. Metastatic neuroendocrine lung cancer with PET/CT evidence of primary tumor in the medial left lower lobe, TNM stage IVB (T2a, N2, M1c). There was associated malignant pleural effusion and there were multiple sites of metastatic involvement by PET/CT, including multiple hepatic metastases and multiple sites of metastatic bone involvement. 2. She has a history of mantle cell lymphoma with bulky retroperitoneal adenopathy and involvement in the spleen at initial diagnosis in May 2009. She has been in sustained remission following treatment with 6 cycles of B-avwjy-KNEN chemotherapy, which she completed in September 2009. 3. She has had a mild to moderately severe thrombocytopenia following completion of the chemotherapy. 4. Hypertension. 5. Stage III chronic kidney disease. 6. GERD. 7. COPD. 8. Obstructive sleep apnea. 9. Degenerative arthritis. 10. Multinodular goiter. 11. History of pulmonary embolism. Problems Addressed with this Encounter and Plan: 1. Patient with metastatic neuroendocrine lung cancer with PET/CT evidence of primary tumor in the medial left lower lobe, TNM stage IVB (T2a, N2, M1c). There was associated malignant pleural effusion and there were multiple sites of metastatic involvement by PET/CT, including multiple hepatic metastases and multiple sites of metastatic bone involvement. Her next generation sequencing showed presence of a PIK3CA mutation. There were no other actionable mutations. Her biopsy sample was insufficient for assessment of PD-L1 expression. She opted to proceed with a trial of systemic therapy with carboplatin/etoposide chemotherapy in combination with atezolizumab. Her treatment was delayed due to a hospitalization for COVID-19 virus infection/pneumonia with acute respiratory failure. She then began cycle 1 of carboplatin/etoposide/atezolizumab on 04/10/2021. The treatment was complicated by severe neutropenia and anemia. She required growth factor support with G-CSF and she required PRBC transfusion. She had uneventful recovery. She then continued with cycle 2 on 05/08/2021, administered with Neulasta prophylactically. She again required PRBC transfusion, but her other blood counts remained adequate and she otherwise tolerated the treatment well. She appeared to be showing response by restaging chest CT, and she continued with cycle 3 on 05/29/2021. Her further clinical course was uncomplicated by worsening anemia. 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 A specific underlying cause was not determined, but I had initially assumed that it was due to the immunotherapy. Her treatment was put on hold, and she began on steroid therapy with prednisone 60 mg twice daily. During subsequent follow-up her hemoglobin had stabilized, and the prednisone was reduced to 60 mg daily. She now remains moderately anemic, though above transfusion threshold. She is beginning to show steroid side effects, so I will now reduce the prednisone to 40 mg daily. For now the chemotherapy and the atezolizumab will remain on hold. I will see her again in 3 weeks. In the meantime, she will be given empiric antibiotic coverage with Levaquin for 7 days. 2. She has multiple sites of metastatic bone involvement by PET/CT. She had started on supportive therapy with denosumab. It is temporarily on hold. Signed By: Juan Luis Larios M.D. <<Signature on File>>
[2021-07-30 16:57] LABS: Cold Hemagglutinins None Detected Titer (None Detected)
== END 2021-08-02 23:59 | disposition home or self-care (01) ==
LOC: ONCMED 06:33
PROVIDERS: Nurse Practitioner Family; PCP Family Medicine; Visit Provider Internal Medicine Medical Oncology
DX: C7A.090 Malignant carcinoid tumor of the bronchus and lung (principal); C7B.03 Secondary carcinoid tumors of bone; C7B.02 Secondary carcinoid tumors of liver; J91.0 Malignant pleural effusion; D69.6 Thrombocytopenia, unspecified; I12.9 Hypertensive chronic kidney disease with stage 1 through stage 4 chronic kidney disease, or unspecified chronic kidney disease; N18.30 Chronic kidney disease, stage 3 unspecified; K21.9 Gastro-esophageal reflux disease without esophagitis; J44.9 Chronic obstructive pulmonary disease, unspecified; G47.33 Obstructive sleep apnea (adult) (pediatric); M19.90 Unspecified osteoarthritis, unspecified site; E04.2 Nontoxic multinodular goiter; Z86.711 Personal history of pulmonary embolism; Z79.899 Other long term (current) drug therapy
CPT/HCPCS: 36415; 36430; 36591; 36593; 80053; 83010; 83615; 85025; 85045; 86157; 86850; 86880; 86900; 86920; 96372; 96374; 99214; 99215; J0885; J1940; J2997; J7050; P9040

== ENCOUNTER 2021-08-22 08:37 | Outpatient (CLI) | payer MEDICARE, MEDICAID, SELFPAY ==
--- NOTE | 2021-08-22 08:51 | CT_ITS ---
WS: [id number] CT CHEST AND ABDOMEN WITH CONTRAST HISTORY: LUNG CANCER-RESTAGING EVALUATION TECHNIQUE: Axial imaging is performed through the chest and abdomen with IV and oral contrast.. Sagit re and coronal reformats. All CT scans at [facility] use at least one of these dose optimiza tion techniques: automated exposure control; mA and/or kV adjustment per patient size (includes targe eliazar exams where dose is matched to clinical indication); or iterative reconstruction. CONTRAST: Omnipaque 350; 95 mL IV. DLP: 1371.01 mGy.cm COMPARISON: 05/16/2021, 03/19/[address]: New extensive groundglass attenuation bilaterally. Groundglass opacifications involve all lobes. Prog ression of pleural-based metastatic lesions within the LEFT thorax. The largest towards the lingula m easures 1.9 x 2.3 cm. This nodule is new since the prior studies. Additional nodularity involving the pleural surface of the posterior mid to lower thorax with mild progression. The small LEFT pleural e ffusion has essentially resolved but there is remaining pleural thickening. New irregular 9 mm nodule at the RIGHT lung base. Heart size is normal. No pericardial effusion. Mild atherosclerosis aorta. Normal size pulmonary earl ry. Enlarging hilar lymph nodes. Significant enlargement with necrosis of several lymph nodes in the LEFT hilum with the largest measuring 1.7 cm in diameter. These lymph nodes have significantly increased in size since the prior study. No adenopathy on the RIGHT. Right-sided Mediport with tip in distal SVC. Very small retrocrural lymph nodes are identified withou t change. Abdomen CT: Liver is enlarged with numerous scattered areas of decreased attenuation. These have sign ificantly progressed and number and size since the prior study consistent with metastatic liver disea se. The largest neoplastic lesion measures 19 x 15 mm and is probably confluent metastatic sites. No bile duct dilatation. Portal vein is patent. Spleen with enlargement at 13.5 cm. Multiple low-attenua tion lesions within the spleen not definitely changed. Gallbladder is been removed. No pancreas abnor mality. Normal adrenal glands. Extensive calcification throughout the aorta. There is a large cluster of calcification causing at least 50% stenosis involving the suprarenal aorta at the level of the ce liac axis and SMA. There is at least moderate if not high-grade stenosis at the origins of the SMA an d celiac axis. No aneurysm. Both kidneys are being normally perfused. No obstruction. Bilateral low-attenuation lesions are proba isabel cysts. No ascites identified. No adenopathy within the upper abdomen. Extensive osteoblastic metastatic disease throughout the visualized spine including the thoracic and lumbar vertebral bodies. Significant progression since the prior study. Additional metastatic lesions are noted within the ribs. CT/CT chest abdomen w con* IMPRESSION: 1. Progression of metastatic disease within the LEFT thorax. There is a new pl eural-based mass at the lingula measuring 1.9 x 2.3 cm. Additional smaller pleu ral-based lesions and a new RIGHT lower lobe nodule. 2. Extensive progression of metastatic disease throughout the liver. 3. Extensive progression of osteoblastic metastatic bone disease within the sp ine and ribs. 4. Low-attenuation lesions in the spleen are stable with mild splenomegaly. 5. 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 6. New LEFT hilar necrotic lymphadenopathy. 7. New groundglass attenuation throughout both lungs. May be related to chemot herapy or small vessel disease.
[2021-08-22] MEDS: iohexol 300 mg/mL 50 mL Btl PO (09:35)
[2021-08-22] MEDS: iohexol 350 mg/mL 100 mL Btl IV (09:35)
[2021-08-22 10:13] LABS: Basophils % 0.1 %; Eosinophils # 0.1 10^3/uL (0.0-0.8); Eosinophils % 0.7 %; Hematocrit 33.4 % (37.0-47.0); Hemoglobin 10.9 g/dL (11.5-15.3); Lymphocytes % 13.6 %; Mean Corpuscular HGB Conc 32.6 g/dL (30.0-36.0); Mean Corpuscular Hemoglobin 32.4 pg (28.0-34.0); Mean Corpuscular Volume 99.4 fl (81-99); Monocytes # 0.5 10^3/uL (0.2-0.9); Monocytes % 6.5 %; Neutrophils # 5.68 10^3/uL (1.8-7.7); Neutrophils % 77.3 %; Nucleated Red Blood Cells % 0 %; Platelet Count 97 10^3/cmm (130-400); Red Blood Count 3.36 10^6/uL (4.1-5.3); Red Cell Distribution Width 15.8 % (12.1-15.1); White Blood Count 7.4 10^3/uL (4.0-10.0)
[2021-08-22 13:46] LABS: Alanine Aminotransferase 83 U/L (0-33); Albumin Level 3.7 g/dL (3.5-5.2); Alkaline Phosphatase 220 IU/L (35-105); Anion Gap 13.7 (5-19); Aspartate Amino Transferase 69 U/L (0-32); Blood Urea Nitrogen 20 mg/dL (8-23); Calcium 8.4 mg/dL (8.5-10.5); Carbon Dioxide 27 mmol/L (22-29); Chloride 96 mmol/L (98-107); Globulin 2.2 g/dL (1.3-4.6); Glucose 146 mg/dL (65-115); Osmolality Calculated 279 mOsm/kg (285-295); Potassium 4.7 mmol/L (3.5-5.1); Sodium 132 mmol/L (136-145); Total Bilirubin 1.7 mg/dL (0.15-1.2); Total Protein 5.9 g/dL (6.6-8.7)
== END 2021-08-22 08:38 | disposition home or self-care (01) ==
LOC: RAD 08:43 → ONCMED 09:19
PROVIDERS: Internal Medicine Medical Oncology; PCP Family Medicine; Visit Provider Nurse Practitioner Family
DX: C34.32 Malignant neoplasm of lower lobe, left bronchus or lung (principal); Z87.891 Personal history of nicotine dependence
CPT/HCPCS: 36591; 71260; 74160; 80053; 85025; Q9967

== ENCOUNTER 2021-08-29 06:48 | Outpatient (RCR) | payer MEDICARE, MEDICAID, SELFPAY ==
[2021-08-16 13:46] LABS: Eosinophils % 0.2 %; Hematocrit 21.2 % (37.0-47.0); Hemoglobin 6.6 g/dL (11.5-15.3); Lymphocytes # 0.8 10^3/uL (0.8-4.8); Lymphocytes % 18.3 %; Mean Corpuscular HGB Conc 31.1 g/dL (30.0-36.0); Mean Corpuscular Hemoglobin 33.5 pg (28.0-34.0); Mean Corpuscular Volume 107.6 fl (81-99); Monocytes # 0.2 10^3/uL (0.2-0.9); Monocytes % 4.7 %; Neutrophils # 3.16 10^3/uL (1.8-7.7); Nucleated Red Blood Cells % 0.5 %; Platelet Count 67 10^3/cmm (130-400); Red Blood Count 1.97 10^6/uL (4.1-5.3); Red Cell Distribution Width 16.1 % (12.1-15.1); White Blood Count 4.3 10^3/uL (4.0-10.0)
[2021-08-16 14:03] LABS: Alanine Aminotransferase 91 U/L (0-33); Albumin Level 3.3 g/dL (3.5-5.2); Alkaline Phosphatase 188 IU/L (35-105); Aspartate Amino Transferase 49 U/L (0-32); Blood Urea Nitrogen 21 mg/dL (8-23); Calcium 8.1 mg/dL (8.5-10.5); Carbon Dioxide 27 mmol/L (22-29); Chloride 98 mmol/L (98-107); Globulin 2.7 g/dL (1.3-4.6); Glucose 215 mg/dL (65-115); Lactate Dehydrogenase 516 U/L (135-214); Osmolality Calculated 285 mOsm/kg (285-295); Sodium 133 mmol/L (136-145); Total Bilirubin 1.2 mg/dL (0.15-1.2)
[2021-08-16 14:08] LABS: Reticulocyte % 4.5 % (0.5-2.0)
--- NOTE | 2021-08-16 15:52 | ONC FU_ITS ---
Letha Fountain Progress Note Patient: Shahnaz Harper Unit #: [id number]: 1945 Dicatated By: Letha Fountain N.P.Date of Visit:Aug 16, 2021 Onc MED Follow-up/Prog Note Chief Complaint: Mantle cell lymphoma/lung cancer. History of Present Illness: This is a 76 year-old woman with a history of mantle cell lymphoma. In January 2021 she was found to have metastatic neuroendocrine lung cancer. She has COPD. She had presented in January with left lower back pain and she was found on CT to have a left pleural effusion. She was then seen at the [facility] pulmonary clinic and she underwent thoracentesis on 01/29/2021. The pleural fluid cytology showed malignant cells which were positive for CK7, TTF-1, and MOC-31. They were negative for cyclin D1, CK20, Jorge Luis-EP4, calretinin, CD20, and CD3. On further analysis, there was positive staining for synaptophysin with negative p40 and Napsin, supporting a neuroendocrine carcinoma. 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 The sample was insufficient for assessment of PD-L1 expression. She had further staging with PET/CT on 02/24/2021. That study showed an FDG avid solid lesion in the medial left lower lobe measuring 3.4 x 3.2 cm, SUV 12.4, strongly consistent with malignancy. Multiple FDG positive left hemithorax pleural plaques are also consistent with malignancy. Malignant nodes were present in the left hilum and prevascular territories. There was evidence of metastatic disease in the right and left hepatic lobes and there was malignant adenopathy in the retrocaval and peripancreatic regions. Also noted were multiple sites of osseous metastatic disease. She was referred to Dr. Santillan for consideration of chest tube placement in the left pleural cavity, but he recommended against it because the effusion appeared to be loculated. In the meantime, she had further evaluation with next generation sequencing study. 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 Multiple other mutations were noted, none of which were actionable. On 03/05/2020 when she was seen for a follow-up visit to discuss further treatment. She opted to proceed with a trial of combined chemotherapy/immunotherapy. Based on the neuroendocrine differentiation, I recommended carboplatin/etoposide in combination with atezolizumab. She then underwent placement of Port-A-Cath venous access device on 03/14/2021. Her further treatment was then delayed due to COVID 19 virus infection/pneumonia, requiring hospital admission for respiratory failure on 03/19/2021. She was discharged home on 03/28/2021. Her medical history is otherwise significant for mantle cell lymphoma, initially diagnosed in May 2009. She was treated with R- hyperCVAD chemotherapy with good clinical response. She completed 6 cycles of treatment as of September 2009. A PET/CT at that point showed a residual 3 cm mass at the celiac access as well as 4 residual cystic masses within the spleen, but these all showed just low-grade FDG uptake. She was then followed on expectant management. During her followup she continued to have a mild thrombocytopenia, but there was no evidence of recurrence/progression of the lymphoma. Her other medical illnesses include COPD, hypertension, chronic kidney disease, GERD, multinodular goiter, obstructive sleep apnea, and degenerative arthritis. She has a history of pulmonary embolism. She underwent right hemithyroidectomy in 2010. She had several polyps removed by colonoscopy in June 2012. She had a pretty severe episode of pneumonia in September 2012. She had a repeat EGD and colonoscopy in January 2019. The only significant finding apparently was gastritis. She had smoked in the past, but she quit in 2008. INTERIM HISTORY: She began cycle 1 of carboplatin/etopside/atezolizumab on 04/10/2021. She tolerated without acute toxicity. She was anemic at baseline, hemoglobin 9.4 g. During subsequent follow-up she became severely neutropenic, requiring growth factor support with G-CSF. She also required PRBC transfusion. She remained afebrile on antibiotic coverage with Levaquin. She continued with cycle 2 on 05/08/2021. It was administered with Neulasta prophylactically. She again required PRBC transfusion, but her other blood counts remained adequate. Her restaging chest CT on 05/16/2021 showed improvement in the pleural-based noncalcified plaques in lobulations. There was just a small amount of residual fluid at the lung bases. There were just small lymph nodes noted within the anterior mediastinum. Numerous low-attenuation lesions were noted throughout the liver and several low-attenuation lesions were noted within the spleen. Overall, there was significant improvement noted in the left lower lobe mass and pleural thickening, consistent with treatment response. She was able to proceed with her 3rd cycle of treatment on 05/29/2021, but she required PRBC transfusion at day 8 with her hemoglobin decreased to 7.4 g. Despite the transfusion, there was further decline in her hemoglobin to 6.0 g at day 15, and as of 07/03/2021 it was still low at 6.2 g/dL despite having been given another 2 units PRBC. Her further laboratory evaluation at that time showed evidence of autoimmune hemolytic anemia with an uncorrected reticulocyte count of 9.3%, haptoglobin low at 10 mg/L, LDH elevated at 698/214 U/L, and KATHIA positive for a complement fixing autoantibody. She was transfused again, but at that point she also began on steroid therapy with prednisone 60 mg twice daily. Her chemotherapy remained on hold. During subsequent follow-up her hemoglobin stabilized, and the prednisone dosage was reduced to 60 mg daily. Patient presents today for follow-up. She is complaining of increased fatigue and generalized weakness. Her appetite has been fair. She denies fever, chills, night sweats. She has some sinus drainage which is chronic in nature. No sore throat. She has shortness of breath with exertion. No cough or chest pain. No GI or problems. She has low back pain that is chronic in nature. No headache or dizziness. Her prednisone was decreased to 40 mg at last visit. She feels like it needs to be increased back to 60 mg due to no energy and increased shortness of breath. Review Of Symptoms: See above. Past Medical History: Chronic kidney disease Chronic obstructive pulmonary disease Degenerative arthritis Gastroesophageal reflux disease History of pulmonary embolism Hypertension Mantle cell lymphoma Multinodular goiter Obstructive sleep apnea Covid virus in 2020 Past Surgical History: Bone marrow aspiration Covid vaccine #2 in 2020 Covid vaccine #1 in 2020 Cholecystectomy in 2014 Fluzone Injection in 2011 - Fluzone mutli gardner vial .5ml dose IM LUE Zostavax Injection in 2011 - Zostavax Inj single dose vial. 0.65 ml SC LUE Right hemithyroidectomy in 2010 Bone marrow biopsy in 2009 Caesarean section in 1988 Allergies: PENICILLIN Medications: Charity 180 mg - Take 1 Tablet Oral daily AmLODIPine Besylate 1 (10 mg) Tablet Oral daily Cholecalciferol 1 (1000 Units) Capsule Oral every am Famotidine 1 Tablet (of 40 mg) Oral daily Folic Acid 1 Tablet (of 1 mg) Oral daily Glucosamine Chondr 1500 Complx 1 Capsule Oral daily HydrALAZINE HCl 1 (50 mg) Tablet Oral b.i.d. Losartan Potassium 1 (50 mg) Tablet Oral b.i.d. Metoprolol Succinate ER 1 (50 mg) Tablet SR 24 HR Oral every am Nitroglycerin Tablet, sublingual Sublingual PRN oxygen 1 (2 L) Aerosol at bedtime Polyethylene Glycol 1 Packet Powder daily predniSONE 2 Tablet (of 20 mg) Oral daily Protonix 1 (40 mg) Tablet, enteric coated Oral daily Spiriva Respimat 1 (1.25 mcg/act) Aerosol, solution Inhalation daily Synthroid 1 (75 mcg) Tablet Oral daily Xopenex Nebulization solution Inhalation PRN Zocor 1 (10 mg) Tablet Oral daily Family History: His sister of renal cell cancer at age 52. Her mother had diabetes and renal failure. She of stroke at age 72. Father with heart attack at age 80. Another sister and a brother also have diabetes. Social History: Ms. Harper is and she is retired. Ms. Harper no longer smokes. She drinks occasionally. She has indicated exposure to the following products: cigarettes. She has a history of smoking 1/2 pack of cigarettes daily for 40 years. She quit smoking in 2008. She has had only rare alcohol use. Physical Examination: Performed on Aug 16, 2021 15:25: Height - 64.00 in, Weight - 196.4 lbs (LOW), BSA - 1.94 sq.m, BMI - 33.71 (HIGH), Temperature - 98.6 F, Pulse - 88 /min, Respiration - 20 /min, BP - 157/90 mm(hg) (HIGH), O2 Sat - 90 % (LOW), Pain - 4, and Fatigue - 5. Performance Status: 2 - Ambulatory/capable of all self-care, unable to perform any work activities. Up and about more than 50% of waking hours. (ECOG) Constitutional Alert, cooperative, oriented. Mood and affect appropriate. Appears close to chronological age. Well nourished. Well developed. Head Normocephalic; no scars. Respiratory Lungs are clear to auscultation without rhonchi or wheezing. Shortness of breath with exertion Cardiovascular Regular rate and rhythm of heart without murmurs, gallops or rubs. Abdomen Non-tender, non-distended, no masses, ascites or hepatosplenomegaly. Good bowel sounds. No guarding or rebound tenderness. Extremities No edema Musculoskeletal Generalized weakness Psychiatric Alert and oriented times three. Coherent speech. Verbalizes understanding of our discussions today. Laboratory: Test performed on Aug 16, 2021 13:20 LDH (Total) 516 U/L Sodium 133 mmol/L Potassium 5.0 mmol/L Chloride 98 mmol/L CO2 27 mmol/L Anion Gap 13.0 BUN 21 mg/dL Creatinine 0.9 mg/dL Cr Clearance (Est) 77.1300 mL/min Glucose 215 mg/dL Osmolality - Calculated 285 mOsm/kg Calcium 8.1 mg/dL Protein, Total 6.0 g/dL Albumin 3.3 g/dL Globulin 2.7 g/dL Bilirubin, Total 1.2 mg/dL ALT (SGPT) 91 U/L AST (SGOT) 49 U/L Alkaline Phosphatase 188 IU/L Leukocyte Reduced RBC [id number] AP RCLR XM COMPATIBLE Retic Count % 4.5 % WBC 4.3 10 3/uL RBC 1.97 10 6/uL HGB 6.6 g/dL HCT 21.2 % MCV 107.6 fl MCH 33.5 pg MCHC 31.1 g/dL RDW 16.1 % Platelet Count 67 10 3/cmm MPV 11.0 fL Neutrophils 3.16 10 3/uL Lymphocytes 0.8 10 3/uL Monocytes 0.2 10 3/uL Eosinophils 0.0 10 3/uL Basophils 0.0 10 3/uL Neutrophil % 74.0 % Lymphocyte % 18.3 % Monocyte % 4.7 % Eosinophil % 0.2 % Basophils % 0.0 % NRBC % 0.5 % Anti-D Positive Blood Type AP Antibody Screen (Gel) NEGATIVE Test performed on Jul 03, 2021 09:20 Irradiated Red Blood Cells [id number] AP RCI XM COMPATIBLE Test performed on Jun 20, 2021 16:21 Ua Color Colorless Ua Appearance Clear Ua Glucose Norm Ua Bilirubin Neg Ua Ketones Negative Ua Specific [place]ife 1.010 Ua Blood Neg Ua pH 5 Ua Protein Neg Ua Nitrites Negative Ua Leukocyte Esterase Negative Test performed on Jun 19, 2021 12:05 Erythropoietin 67.9 mIU/mL Test performed on Jun 19, 2021 10:30 Antibody ID CAA Test performed on Jun 19, 2021 10:20 TSH 1.25 uIU/mL CBC Slide Review Slide Review Perform SLIDE REVIEW AGREES WITH AUTOMATED RESULTS ST Test performed on Jun 13, 2021 16:15 Ua Urobilinogen 4 mg/dL Ua Micro: Amorph Sediment 1+ /hpf Ua Micro: WBC RARE /hpf Urine Culture CC 100 CFU/ml Ua Micro: RBC 0-4 /hpf Ua Micro: Squam Epith Cells 5-10 /hpf Ua Micro: Bacteria TRACE /hpf Test performed on Jun 12, 2021 13:45 Manual Segs % 49 % Manual Bands % 12.0 % Manual Lymphs % 25 % Atypical Lymphs % 0.0 % Total Cells Counted 100 Manual Monos % 11.0 % Manual Eos % 0 % Manual Basos % 0.0 % Metamyelocytes % 3.0 % Poikilocytosis 1+ Tear Drop Cells 1+ Platelet Estimate Decreased Platelets, Giant Trace Manual Segs Abs 2.5 10/cmm Manual Bands Abs 0.6 10 3/cmm Manual Neutrophils Abs 3.1 10 3/cmm Manual Lymphocytes Abs 1.3 10 3/cmm Manual Monocytes Abs 0.6 10 3/cmm Manual Eosinophils Abs 0.0 10 3/cmm Manual Basophils Abs 0.0 10 3/cmm Test performed on May 01, 2021 08:20 Anisocytosis 1+ Stomatocytes Trace Impression: 1. Metastatic neuroendocrine lung cancer with PET/CT evidence of primary tumor in the medial left lower lobe, TNM stage IVB (T2a, N2, M1c). There was associated malignant pleural effusion and there were multiple sites of metastatic involvement by PET/CT, including multiple hepatic metastases and multiple sites of metastatic bone involvement. 2. She has a history of mantle cell lymphoma with bulky retroperitoneal adenopathy and involvement in the spleen at initial diagnosis in May 2009. She has been in sustained remission following treatment with 6 cycles of [id number] chemotherapy, which she completed in September 2009. 3. She has had a mild to moderately severe thrombocytopenia following completion of the chemotherapy. 4. Hypertension. 5. Stage III chronic kidney disease. 6. GERD. 7. COPD. 8. Obstructive sleep apnea. 9. Degenerative arthritis. 10. Multinodular goiter. 11. History of pulmonary embolism. Plan: 1. Patient with metastatic neuroendocrine lung cancer with PET/CT evidence of primary tumor in the medial left lower lobe, TNM stage IVB (T2a, N2, M1c). There was associated malignant pleural effusion and there were multiple sites of metastatic involvement by PET/CT, including multiple hepatic metastases and multiple sites of metastatic bone involvement. Her next generation sequencing showed presence of a PIK3CA mutation. There were no other actionable mutations. Her biopsy sample was insufficient for assessment of PD-L1 expression. She opted to proceed with a trial of systemic therapy with carboplatin/etoposide chemotherapy in combination with atezolizumab. Her treatment was delayed due to a hospitalization for COVID-19 virus infection/pneumonia with acute respiratory failure. She then began cycle 1 of carboplatin/etoposide/atezolizumab on 04/10/2021. The treatment was complicated by severe neutropenia and anemia. She required growth factor support with G-CSF and she required PRBC transfusion. She had uneventful recovery. She then continued with cycle 2 on 05/08/2021, administered with Neulasta prophylactically. She again required PRBC transfusion, but her other blood counts remained adequate and she otherwise tolerated the treatment well. She appeared to be showing response by restaging chest CT, and she continued with cycle 3 on 05/29/2021. Her further clinical course was uncomplicated by worsening anemia. 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 A specific underlying cause was not determined, but I had initially assumed that it was due to the immunotherapy. Her treatment was put on hold, and she began on steroid therapy with prednisone 60 mg twice daily. During subsequent follow-up her hemoglobin had stabilized, and the prednisone was reduced to 60 mg daily. Patient presents today for follow-up. She is complaining of shortness of breath with exertion and increased levels of fatigue. Her prednisone was decreased to 40 mg at last visit but she is requesting it be increased back to 60 mg because she was feeling better with that dose. Today her hemoglobin is 6.6 and she will require 2 units of blood be transfused. The chemotherapy and the atezolizumab will remain on hold. It was noted that her liver enzymes are elevated this week her ALT has increased from 33 to 91 and her AST is at 49 increased from 31. Her alkaline phosphatase is also elevated at 181 up from 85 at last check. We will obtain a CT scan of abdomen and chest and recheck CBC next week. CBCs will be drawn weekly. She will follow-up in 2 weeks. 2. She has multiple sites of metastatic bone involvement by PET/CT. She had started on supportive therapy with denosumab. It is temporarily on hold. Signed By: Letha Fountain N.P. <<Signature on File>>
[2021-08-17] VITALS (8 sets, daily range): BP systolic 124–158; BP diastolic 52–72; PULSE 72–78; RESP 18; TEMP 36.5–37; O2SAT 95–98
[2021-08-17] MEDS: acetaminophen 325 mg Tablet 650 MG PO (09:29)
[2021-08-17] MEDS: sodium chloride 0.9% (100 ml) 100 ML 10 ML ×2 (09:30→11:30)
[2021-08-17] MEDS: diphenhydrAMINE 25 mg Capsule PO (09:32)
--- NOTE | 2021-08-29 10:51 | ONC FU_ITS ---
Letha Fountain Progress Note Patient: Shahnaz Harper Unit #: [id number]: 1945 Dicatated By: Letha Fountain N.P.Date of Visit:Aug 29, 2021 Onc MED Follow-up/Prog Note Chief Complaint: Mantle cell lymphoma/lung cancer. History of Present Illness: This is a 76 year-old woman with a history of mantle cell lymphoma. In January 2021 she was found to have metastatic neuroendocrine lung cancer. She has COPD. She had presented in January with left lower back pain and she was found on CT to have a left pleural effusion. She was then seen at the [facility] pulmonary clinic and she underwent thoracentesis on 01/29/2021. The pleural fluid cytology showed malignant cells which were positive for CK7, TTF-1, and MOC-31. They were negative for cyclin D1, CK20, Jorge Luis-EP4, calretinin, CD20, and CD3. On further analysis, there was positive staining for synaptophysin with negative p40 and Napsin, supporting a neuroendocrine carcinoma. 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 The sample was insufficient for assessment of PD-L1 expression. She had further staging with PET/CT on 02/24/2021. That study showed an FDG avid solid lesion in the medial left lower lobe measuring 3.4 x 3.2 cm, SUV 12.4, strongly consistent with malignancy. Multiple FDG positive left hemithorax pleural plaques are also consistent with malignancy. Malignant nodes were present in the left hilum and prevascular territories. There was evidence of metastatic disease in the right and left hepatic lobes and there was malignant adenopathy in the retrocaval and peripancreatic regions. Also noted were multiple sites of osseous metastatic disease. She was referred to Dr. Santillan for consideration of chest tube placement in the left pleural cavity, but he recommended against it because the effusion appeared to be loculated. In the meantime, she had further evaluation with next generation sequencing study. 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 Multiple other mutations were noted, none of which were actionable. On 03/05/2020 when she was seen for a follow-up visit to discuss further treatment. She opted to proceed with a trial of combined chemotherapy/immunotherapy. Based on the neuroendocrine differentiation, I recommended carboplatin/etoposide in combination with atezolizumab. She then underwent placement of Port-A-Cath venous access device on 03/14/2021. Her further treatment was then delayed due to COVID 19 virus infection/pneumonia, requiring hospital admission for respiratory failure on 03/19/2021. She was discharged home on 03/28/2021. Her medical history is otherwise significant for mantle cell lymphoma, initially diagnosed in May 2009. She was treated with R- hyperCVAD chemotherapy with good clinical response. She completed 6 cycles of treatment as of September 2009. A PET/CT at that point showed a residual 3 cm mass at the celiac access as well as 4 residual cystic masses within the spleen, but these all showed just low-grade FDG uptake. She was then followed on expectant management. During her followup she continued to have a mild thrombocytopenia, but there was no evidence of recurrence/progression of the lymphoma. Her other medical illnesses include COPD, hypertension, chronic kidney disease, GERD, multinodular goiter, obstructive sleep apnea, and degenerative arthritis. She has a history of pulmonary embolism. She underwent right hemithyroidectomy in 2010. She had several polyps removed by colonoscopy in June 2012. She had a pretty severe episode of pneumonia in September 2012. She had a repeat EGD and colonoscopy in January 2019. The only significant finding apparently was gastritis. She had smoked in the past, but she quit in 2008. INTERIM HISTORY: She began cycle 1 of carboplatin/etopside/atezolizumab on 04/10/2021. She tolerated without acute toxicity. She was anemic at baseline, hemoglobin 9.4 g. During subsequent follow-up she became severely neutropenic, requiring growth factor support with G-CSF. She also required PRBC transfusion. She remained afebrile on antibiotic coverage with Levaquin. She continued with cycle 2 on 05/08/2021. It was administered with Neulasta prophylactically. She again required PRBC transfusion, but her other blood counts remained adequate. Her restaging chest CT on 05/16/2021 showed improvement in the pleural-based noncalcified plaques in lobulations. There was just a small amount of residual fluid at the lung bases. There were just small lymph nodes noted within the anterior mediastinum. Numerous low-attenuation lesions were noted throughout the liver and several low-attenuation lesions were noted within the spleen. Overall, there was significant improvement noted in the left lower lobe mass and pleural thickening, consistent with treatment response. She was able to proceed with her 3rd cycle of treatment on 05/29/2021, but she required PRBC transfusion at day 8 with her hemoglobin decreased to 7.4 g. Despite the transfusion, there was further decline in her hemoglobin to 6.0 g at day 15, and as of 07/03/2021 it was still low at 6.2 g/dL despite having been given another 2 units PRBC. Her further laboratory evaluation at that time showed evidence of autoimmune hemolytic anemia with an uncorrected reticulocyte count of 9.3%, haptoglobin low at 10 mg/L, LDH elevated at 698/214 U/L, and KATHIA positive for a complement fixing autoantibody. She was transfused again, but at that point she also began on steroid therapy with prednisone 60 mg twice daily. Her chemotherapy remained on hold. During subsequent follow-up her hemoglobin stabilized, and the prednisone dosage was reduced to 60 mg daily. Patient presents today for follow-up. She is complaining of increased fatigue and shortness of breath. She is also experiencing generalized weakness. She denies fever, chills, night sweats. Her appetite has been fair. No GI problems. She is having joint and bone pain especially in the left back. No headaches or dizziness. She states she is aware that she is becoming weaker and that her condition is worsening. Review Of Symptoms: See above. Past Medical History: Chronic kidney disease Chronic obstructive pulmonary disease Degenerative arthritis Gastroesophageal reflux disease History of pulmonary embolism Hypertension Mantle cell lymphoma Multinodular goiter Obstructive sleep apnea Covid virus in 2020 Past Surgical History: Bone marrow aspiration Covid vaccine #2 in 2020 Covid vaccine #1 in 2020 Cholecystectomy in 2014 Fluzone Injection in 2011 - Fluzone mutli gardner vial .5ml dose IM LUE Zostavax Injection in 2011 - Zostavax Inj single dose vial. 0.65 ml SC LUE Right hemithyroidectomy in 2010 Bone marrow biopsy in 2009 Caesarean section in 1988 Allergies: PENICILLIN Medications: Charity 180 mg - Take 1 Tablet Oral daily AmLODIPine Besylate 1 (10 mg) Tablet Oral daily Cholecalciferol 1 (1000 Units) Capsule Oral every am Famotidine 1 Tablet (of 40 mg) Oral daily Folic Acid 1 Tablet (of 1 mg) Oral daily Glucosamine Chondr 1500 Complx 1 Capsule Oral daily HydrALAZINE HCl 1 (50 mg) Tablet Oral b.i.d. Losartan Potassium 1 (50 mg) Tablet Oral b.i.d. Metoprolol Succinate ER 1 (50 mg) Tablet SR 24 HR Oral every am Nitroglycerin Tablet, sublingual Sublingual PRN oxygen 1 (2 L) Aerosol at bedtime Polyethylene Glycol 1 Packet Powder daily predniSONE 2 Tablet (of 20 mg) Oral daily Protonix 1 (40 mg) Tablet, enteric coated Oral daily Spiriva Respimat 1 (1.25 mcg/act) Aerosol, solution Inhalation daily Synthroid 1 (75 mcg) Tablet Oral daily Xopenex Nebulization solution Inhalation PRN Zocor 1 (10 mg) Tablet Oral daily Family History: His sister of renal cell cancer at age 52. Her mother had diabetes and renal failure. She of stroke at age 72. Father with heart attack at age 80. Another sister and a brother also have diabetes. Social History: Ms. Harper is and she is retired. Ms. Harper no longer smokes. She drinks occasionally. She has indicated exposure to the following products: cigarettes. She has a history of smoking 1/2 pack of cigarettes daily for 40 years. She quit smoking in 2008. She has had only rare alcohol use. Physical Examination: Performed on Aug 29, 2021 10:37: Height - 64.00 in, Weight - 190.2 lbs (LOW), BSA - 1.91 sq.m, BMI - 32.65 (HIGH), Temperature - 97.6 F (LOW), Pulse - 92 /min, Respiration - 18 /min, BP - 128/81 mm(hg), O2 Sat - 90 % (LOW), Pain - 6, and Fatigue - 6. Performance Status: 2 - Ambulatory/capable of all self-care, unable to perform any work activities. Up and about more than 50% of waking hours. (ECOG) Constitutional Alert, cooperative, oriented. Mood and affect appropriate. Chronically ill appearance. Head Normocephalic; no scars. Respiratory Shortness of breath with any activity. Cardiovascular Regular rate and rhythm of heart without murmurs, gallops or rubs. Musculoskeletal No tenderness or swelling, normal range of motion without obvious weakness. Psychiatric Alert and oriented times three. Coherent speech. Verbalizes understanding of our discussions today. Laboratory: Test performed on Aug 16, 2021 13:20 LDH (Total) 516 U/L Sodium 133 mmol/L Potassium 5.0 mmol/L Chloride 98 mmol/L CO2 27 mmol/L Anion Gap 13.0 BUN 21 mg/dL Creatinine 0.9 mg/dL Cr Clearance (Est) 77.1300 mL/min Glucose 215 mg/dL Osmolality - Calculated 285 mOsm/kg Calcium 8.1 mg/dL Protein, Total 6.0 g/dL Albumin 3.3 g/dL Globulin 2.7 g/dL Bilirubin, Total 1.2 mg/dL ALT (SGPT) 91 U/L AST (SGOT) 49 U/L Alkaline Phosphatase 188 IU/L Leukocyte Reduced RBC [id number] AP RCLR XM COMPATIBLE Retic Count % 4.5 % WBC 4.3 10 3/uL RBC 1.97 10 6/uL HGB 6.6 g/dL HCT 21.2 % MCV 107.6 fl MCH 33.5 pg MCHC 31.1 g/dL RDW 16.1 % Platelet Count 67 10 3/cmm MPV 11.0 fL Neutrophils 3.16 10 3/uL Lymphocytes 0.8 10 3/uL Monocytes 0.2 10 3/uL Eosinophils 0.0 10 3/uL Basophils 0.0 10 3/uL Neutrophil % 74.0 % Lymphocyte % 18.3 % Monocyte % 4.7 % Eosinophil % 0.2 % Basophils % 0.0 % NRBC % 0.5 % Anti-D Positive Blood Type AP Antibody Screen (Gel) NEGATIVE Test performed on Jul 03, 2021 09:20 Irradiated Red Blood Cells [id number] AP RCI XM COMPATIBLE Test performed on Jun 20, 2021 16:21 Ua Color Colorless Ua Appearance Clear Ua Glucose Norm Ua Bilirubin Neg Ua Ketones Negative Ua Specific Alpha 1.010 Ua Blood Neg Ua pH 5 Ua Protein Neg Ua Nitrites Negative Ua Leukocyte Esterase Negative Test performed on Jun 19, 2021 12:05 Erythropoietin 67.9 mIU/mL Test performed on Jun 19, 2021 10:30 Antibody ID CAA Test performed on Jun 19, 2021 10:20 TSH 1.25 uIU/mL CBC Slide Review Slide Review Perform SLIDE REVIEW AGREES WITH AUTOMATED RESULTS ST Test performed on Jun 13, 2021 16:15 Ua Urobilinogen 4 mg/dL Ua Micro: Amorph Sediment 1+ /hpf Ua Micro: WBC RARE /hpf Urine Culture CC 100 CFU/ml Ua Micro: RBC 0-4 /hpf Ua Micro: Squam Epith Cells 5-10 /hpf Ua Micro: Bacteria TRACE /hpf Test performed on Jun 12, 2021 13:45 Manual Segs % 49 % Manual Bands % 12.0 % Manual Lymphs % 25 % Atypical Lymphs % 0.0 % Total Cells Counted 100 Manual Monos % 11.0 % Manual Eos % 0 % Manual Basos % 0.0 % Metamyelocytes % 3.0 % Poikilocytosis 1+ Tear Drop Cells 1+ Platelet Estimate Decreased Platelets, Giant Trace Manual Segs Abs 2.5 10/cmm Manual Bands Abs 0.6 10 3/cmm Manual Neutrophils Abs 3.1 10 3/cmm Manual Lymphocytes Abs 1.3 10 3/cmm Manual Monocytes Abs 0.6 10 3/cmm Manual Eosinophils Abs 0.0 10 3/cmm Manual Basophils Abs 0.0 10 3/cmm Test performed on May 01, 2021 08:20 Anisocytosis 1+ Stomatocytes Trace Impression: 1. Metastatic neuroendocrine lung cancer with PET/CT evidence of primary tumor in the medial left lower lobe, TNM stage IVB (T2a, N2, M1c). There was associated malignant pleural effusion and there were multiple sites of metastatic involvement by PET/CT, including multiple hepatic metastases and multiple sites of metastatic bone involvement. 2. She has a history of mantle cell lymphoma with bulky retroperitoneal adenopathy and involvement in the spleen at initial diagnosis in May 2009. She has been in sustained remission following treatment with 6 cycles of [id number] chemotherapy, which she completed in September 2009. 3. She has had a mild to moderately severe thrombocytopenia following completion of the chemotherapy. 4. Hypertension. 5. Stage III chronic kidney disease. 6. GERD. 7. COPD. 8. Obstructive sleep apnea. 9. Degenerative arthritis. 10. Multinodular goiter. 11. History of pulmonary embolism. Plan: 1. Patient with metastatic neuroendocrine lung cancer with PET/CT evidence of primary tumor in the medial left lower lobe, TNM stage IVB (T2a, N2, M1c). There was associated malignant pleural effusion and there were multiple sites of metastatic involvement by PET/CT, including multiple hepatic metastases and multiple sites of metastatic bone involvement. Her next generation sequencing showed presence of a PIK3CA mutation. There were no other actionable mutations. Her biopsy sample was insufficient for assessment of PD-L1 expression. She opted to proceed with a trial of systemic therapy with carboplatin/etoposide chemotherapy in combination with atezolizumab. Her treatment was delayed due to a hospitalization for COVID-19 virus infection/pneumonia with acute respiratory failure. She then began cycle 1 of carboplatin/etoposide/atezolizumab on 04/10/2021. The treatment was complicated by severe neutropenia and anemia. She required growth factor support with G-CSF and she required PRBC transfusion. She had uneventful recovery. She then continued with cycle 2 on 05/08/2021, administered with Neulasta prophylactically. She again required PRBC transfusion, but her other blood counts remained adequate and she otherwise tolerated the treatment well. She appeared to be showing response by restaging chest CT, and she continued with cycle 3 on 05/29/2021. Her further clinical course was uncomplicated by worsening anemia. 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 A specific underlying cause was not determined, but I had initially assumed that it was due to the immunotherapy. Her treatment was put on hold, and she began on steroid therapy with prednisone 60 mg twice daily. During subsequent follow-up her hemoglobin had stabilized, and the prednisone was reduced to 60 mg daily. Patient presents today for follow-up and to discuss the results of her CT scan of chest and abdomen that was performed on 08/22/2021. It shows progression of metastatic disease within the left thorax, and new right lower lobe nodule, extensive progression of metastatic disease throughout the liver and extensive progression of osteoblastic metastatic bone disease within the spine and ribs. He has been recommended that she discontinue treatment be referred to hospice. Patient is currently trying to get on palliative care. I discussed with her that at this point hospice may be the better choice and she is willing to consider this. A referral has been placed for hospice evaluation. We will check labs today in case a blood transfusion needed. 2. She has multiple sites of metastatic bone involvement by PET/CT. She had started on supportive therapy with denosumab. It is temporarily on hold. Signed By: Letha Fountain NHunter <<Signature on File>>
[2021-08-29] MEDS: alteplase 1 mg/mL SDV 2 mL 2 MG IV (10:58)
[2021-08-29 10:59] LABS: Basophils % 0.3 %; Eosinophils % 0.3 %; Hematocrit 30.8 % (37.0-47.0); Hemoglobin 9.7 g/dL (11.5-15.3); Lymphocytes # 0.6 10^3/uL (0.8-4.8); Lymphocytes % 8.4 %; Mean Corpuscular HGB Conc 31.5 g/dL (30.0-36.0); Mean Corpuscular Hemoglobin 31.7 pg (28.0-34.0); Mean Corpuscular Volume 100.7 fl (81-99); Mean Platelet Volume 10.9 fL (7.4-10.4); Monocytes # 0.3 10^3/uL (0.2-0.9); Monocytes % 4.7 %; Neutrophils # 5.42 10^3/uL (1.8-7.7); Neutrophils % 82.8 %; Nucleated Red Blood Cells % 0 %; Platelet Count 94 10^3/cmm (130-400); Red Blood Count 3.06 10^6/uL (4.1-5.3); Red Cell Distribution Width 16.1 % (12.1-15.1); White Blood Count 6.6 10^3/uL (4.0-10.0)
[2021-08-29 11:34] LABS: Alanine Aminotransferase 111 U/L (0-33); Albumin Level 3.4 g/dL (3.5-5.2); Alkaline Phosphatase 267 IU/L (35-105); Anion Gap 13.8 (5-19); Aspartate Amino Transferase 79 U/L (0-32); Blood Urea Nitrogen 21 mg/dL (8-23); Carbon Dioxide 30 mmol/L (22-29); Chloride 94 mmol/L (98-107); Globulin 2.3 g/dL (1.3-4.6); Glucose 186 mg/dL (65-115); Osmolality Calculated 284 mOsm/kg (285-295); Potassium 4.8 mmol/L (3.5-5.1); Sodium 133 mmol/L (136-145); Total Bilirubin 1.5 mg/dL (0.15-1.2); Total Protein 5.7 g/dL (6.6-8.7)
== END 2021-09-01 23:59 | disposition home or self-care (01) ==
LOC: ONCMED 06:48
PROVIDERS: Internal Medicine Medical Oncology; PCP Family Medicine; Visit Provider Nurse Practitioner Family
DX: C7A.090 Malignant carcinoid tumor of the bronchus and lung (principal); C7B.03 Secondary carcinoid tumors of bone; C7B.02 Secondary carcinoid tumors of liver; J91.0 Malignant pleural effusion; D70.1 Agranulocytosis secondary to cancer chemotherapy; D64.81 Anemia due to antineoplastic chemotherapy; T45.1X5A Adverse effect of antineoplastic and immunosuppressive drugs, initial encounter; D59.12 Cold autoimmune hemolytic anemia; Z79.52 Long term (current) use of systemic steroids; Z79.899 Other long term (current) drug therapy; Z85.72 Personal history of non-Hodgkin lymphomas; Z86.16 Personal history of COVID-19
CPT/HCPCS: 36430; 36591; 36593; 80053; 83010; 83615; 85025; 85045; 86850; 86900; 86920; 99214; 99215; J2997; P9040